=== PATIENT | female | born 1965 | race Caucasian/White ===

== ENCOUNTER 2025-06-22 18:12 | Observation (INO) | payer MEDICARE, SELFPAY ==
[2025-06-22] VITALS (7 sets, daily range): BP systolic 143–167; BP diastolic 66–84; PULSE 73–86; RESP 14–23; TEMP 35.8–36.6; O2SAT 99–100; BMI 25.2; BMI 25.9
--- NOTE | 2025-06-22 18:32 | EKG12_ITS ---
Test Reason : CHEST PAIN Blood Pressure : */* mmHG Vent. Rate : 76 BPM Atrial Rate : 76 BPM P-R Int : 152 ms QRS Dur : 98 ms QT Int : 362 ms P-R-T Axes : 55 52 57 degrees QTcB Int : 407 ms Normal sinus rhythm Nonspecific ST abnormality Abnormal ECG Confirmed by Vikas Arredondo ([id number]), editor & co founder NICO ROBERTSON ([id number]) on 06/25/2025 1:07:18 PM Referred By: SUSANA Confirmed By: Vikas Arredondo
--- NOTE | 2025-06-22 18:34 | EDS_ITS ---
HPI History of Present Illness Chief Complaint: Chest Pain Narrative Narrative: Chief complaint and HPI: 59-year-old female with past medical history of anxiety, depression, DM on Ozempic presents for evaluation of chest pain. Patient states over the past 3 to 4 days she has been under the weather with a URI. States she has had a lot of congestion. Patient states about 2 hours ago she developed sharp chest pain. Pain has improved however still present. She went to an urgent care center to the emergency department. Denies any fever, chills, shortness of breath, abdominal pain, nausea, vomiting. Review of systems: See HPI Medications: As listed on the chart Allergies: As listed on the chart PFSH: Per chart Vital signs: As listed on the chart. Reviewed. Physical exam: Gen: A&O x3, NAD Head: Normocephalic, atraumatic Eyes: No sclera icterus, conjunctiva clear ENT: Moist mucous membranes, nasal congestion+ Neck: Trachea midline CV: RRR, no murmurs, no peripheral edema Resp: Lungs CTA BL, no w/r/c GI: Abd soft, non-distended, non-tender, no r/r/g Musc: Moves all extremities Skin: Warm, dry Psych: Cooperative, appropriate mood and affect [facility] Medical History (Updated 06/22/25 @ 21:[address] Eloise Fernández MD) Former tobacco use Anxiety and depression Diabetes Home Medications ?Medication ?Instructions ?Recorded ?Last Taken ?Type bupropion HCl 150 mg 24 hr tablet, 150 mg PO DAILY 06/22/25 History extended release pioglitazone 15 mg tablet 15 mg PO DAILY 06/22/25 Unkn own History venlafaxine 75 mg capsule,extended 75 mg PO DAILY 05/2506/22/25 History release 24 hr Allergy/AdvReac Type Severity Reaction Status Date / Time No Known Allergies Allergy Verified 06/22/25 18:13 Surgical History (Updated 06/22/25 @ 19:07 by Milka Farris) Hx of bladder repair surgery History of hysterectomy History of cholecystectomy Social History Smoking Status: Former smoker EXAM Physical Exam Const Vital Signs: 06/22/25 18:13 06/22/25 19:03 06/22/25 19:12 Temperature 96.5 F L Temperature Source Oral Pulse Rate 80 80 Respiratory Rate 18 18 Respiratory Effort Normal Blood Pressure 167/75 H 143/84 H Blood Pressure Mean 105 103 Pulse Ox 99 99 Oxygen Delivery Method Room Air Room Air 06/22/25 20:00 06/22/25 21:00 06/22/25 22:00 Temperature Temperature Source Pulse Rate 79 86 81 Respiratory Rate 14 21 H 23 H Respiratory Effort Blood Pressure 145/74 H 154/71 H 152/82 H Blood Pressure Mean 97 98 105 Pulse Ox 99 99 99 Oxygen Delivery Method Room Air Room Air Room Air MDM MDM MDM Narrative Medical decision making narrative: 59-year-old female with past medical history of anxiety, depression, DM on Ozempic presents for evaluation of chest pain. Patient states over the past 3 to 4 days she has been under the weather with a URI. States she has had a lot of congestion. Patient states about 2 hours ago she developed sharp chest pain. Pain has improved however still present. She went to an urgent care center to the emergency department. On presentation, patient no acute distress. Aspirin ordered. Chest pain workup ordered. Differential diagnosis includes but is not limited to pleurisy, pneumonia, PE, ACS. CBC without leukocytosis or anemia. Patient has thrombocytopenia of 131. I do not have previous labs to compare to. D-dimer is 0.51 however this is negative per age-adjusted. BMP unremarkable. Troponin 29. Troponin 60. On reevaluation, patient states her chest pain originally resolved but is now reoccurring. Given that delta is 31. Patient will warrant admission for ACS workup. Will get repeat EKG. She was updated of all the results and confirmed understanding of the plan. I spoke with the hospitalist service, Dr. Fernández who accepted admission. EKG: Interpreted by me/EM physician: EKG shows normal sinus rhythm with nonspecific ST changes. Heart rate 76. No ST elevation Diagnostic: Interpreted by me/EM physician: Chest x-ray not pneumonia, effusion, cardiomegaly, pneumothorax. Radiology in agreement. Impression: 1. Chest pain, ACS rule out 2. Elevated troponin 3. Thrombocytopenia Lab Data Labs: Laboratory Results - last 24 hr 06/22/25 06/22/25 18:35 20:35 WBC 7.7 RBC 4.45 Hgb 12.7 Hct 38.2 MCV 85.8 MCH 28.5 MCHC 33.2 RDW Std Deviation 40.4 RDW Coeff of Qasim 12.9 Plt Count 131 L MPV 10.6 Immature Gran % (Auto) 0.300 Neut % (Auto) 76.7 H Lymph % (Auto) 13.7 L [place] % (Auto) 6.5 Eos % (Auto) 2.3 Baso % (Auto) 0.5 Absolute Neuts (auto) 5.9 Absolute Lymphs (auto) 1.05 Nucleated RBC % 0 D-Dimer Quant (PE/DVT) 0.51 H* Sodium 139 Potassium 4.2 Chloride 102 Carbon Dioxide 29.5 Anion Gap 7 BUN 12 Creatinine 0.81 Estim Creat Clear Calc 71.55 Est GFR (MDRD) Non-Af 83 BUN/Creatinine Ratio 14.9 Glucose 98 Calcium 9.1 Troponin T High Sens 29 H Troponin T Hi Sens 2 Hr 60 H* Radiography Diagnostic Testing: Clinical Impression(s) from Imaging Studies Chest X-Ray 06/22/25 18:55 IMPRESSION: No acute cardiopulmonary disease. Reading Location: [id number] Discharge Plan Triage Chief Complaint: Chest Pain ED Provider: Og Beard Dx/Rx/DC Orders Prescriptions: No Action pioglitazone 15 mg tablet 15 mg PO DAILY venlafaxine 75 mg capsule,extended release 24hr 75 mg PO DAILY bupropion HCl 150 mg tablet extended release 24 hr 150 mg PO DAILY Primary Care Provider: ABELINO VELEZ Referrals: NOT,DEFINED [Non-Staff, None] Print Language: Pashto
[2025-06-22 18:50] LABS: Hematocrit 38.2 % (37-47); Hemoglobin 12.7 g/dL (12.0-15.0); Immature Granulocytes Count 0.020 X10^3/uL (0.0-0.0); Mean Corp Hgb Conc 33.2 g/dL (32-36); Mean Corpuscular Volume 85.8 fL (81-99); Mean Platelet Vol. 10.6 fl (6.2-12.0); NRBC Flagged by Analyzer 0 % (0-5); Platelet Count 131 K/mm3 (150-450); RBC Distribution Width CV 12.9 % (11.6-14.6); RBC Distribution Width SD 40.4 fl (35.1-43.9); Red Blood Count 4.45 M/mm3 (4.2-5.4); White Blood Count 7.7 K/mm3 (4.4-11.0)
--- NOTE | 2025-06-22 18:55 | RAD_ITS ---
PROCEDURE: CHEST PA AND LATERAL 06/22/2025 REASON FOR EXAM: CHEST PAIN TECHNIQUE: Procedure Code: RADCXR Modality: DX Procedure: CHEST PA AND LATERAL COMPARISON: None. FINDINGS: Lungs/Pleura: Clear. No pneumothorax or pleural effusion. Heart/Mediastinum: Within normal limits. Bones/Soft tissues: Mild degenerative changes of the spine. Cholecystectomy surgical clips. RAD/Chest PA and Lateral IMPRESSION: No acute cardiopulmonary disease. Reading Location: [id number]
[2025-06-22 19:08] LABS: Anion Gap 7 (5-15); BUN 12 mg/dL (4-19); BUN/Creat Ratio 14.9 RATIO (10-20); Calcium,Total 9.1 mg/dL (7.6-11.0); Carbon Dioxide 29.5 mmol/L (21.0-32.0); Chloride 102 mmol/L (98-108); Estimated Creatinine Clearance 71.55 ml/min (50-250); Glucose 98 mg/dL (70-99); Potassium 4.2 mmol/L (3.3-5.1); Troponin T High Sensitivity 29 ng/L (<=14)
[2025-06-22 20:03] LABS: D-Dimer Quantitative (DVT/PE) 0.51 FEU/ug/m (0.27-0.49)
[2025-06-22 21:18] LABS: Troponin T High Sens 2 HR 60 ng/L (<=14)
--- NOTE | 2025-06-22 21:57 | PCM.HP.STD ---
HPI - General General Date of Admission: 06/22/25 Date of Service: 06/22/25 Chief Complaint: Recent URI, chest pain. HPI Narrative The patient is a 59 y/o F w/ PMHx: Diabetes mellitus type II, Former tobacco use, Anxiety and Depression who presents to the [facility] ED on 06/22/25 with history of 3 to 4 days of general fatigue, malaise and URI type symptoms with headache, congestion, rhinorrhea then with onset on day of ED presentation at approximately 3:30 in the afternoon midsternal chest discomfort initially more sharp rated 4-6 out of 10 in severity eventually subsiding into a more dull aching 2-3 out of 10 in severity however this was constant and more pressure-like in nature prompting eventual ED evaluation with no associated dyspnea, diaphoresis, nausea or emesis. In the ED patient notes that she had continued to improve further however she did get up to use the restroom the ED and did have an increase in the discomforts with more sharpin addition to pressure-like sensation but is now improving given her rest. Patient notes the discomfort occurred at rest. Patient notes that everyone in the household has had an upper respiratory infection. Workup in the ED included T96.5, heart rate 80, BP 167/75, respiratory 18, 99% on room air with most recent repeat vitals heart rate 86, BP 154/71, respiratory rate 21, 99% on room air, CBC with WBC 7.7, hemoglobin 12.7, platelet 131 without marked shift, D-dimer 0.51 less normal for age, BUN/Cr 12/0.1, GFR 83, initial troponin 29 with repeat delta 60, chest x-ray with no acute cardiopulmonary findings, EKG with sinus rhythm with nonspecific ST changes with no acute evidence of ischemia. In the ED patient ministered full-strength aspirin therapy. [facility] Medical History Former tobacco use Anxiety and depression Diabetes Home Medications ?Medication ?Instructions ?Recorded ?Last Taken ?Type bupropion HCl 150 mg 24 hr tablet, 150 mg PO DAILY 06/22/25 06/22/25 History extended release pioglitazone 15 mg tablet 15 mg PO DAILY 06/22/25 Unknown History venlafaxine 75 mg capsule,extended 75 mg PO DAILY 06/22/25 06/22/25 History release 24 hr Allergy/AdvReac Type Severity Reaction Status Date / Time No Known Allergies Allergy Verified 06/22/25 18:13 Family History (Updated 06/22/25 @ 22:[address] Eloise Fernández MD) Mother CVA (cerebral vascular accident) Hypertension HLD (hyperlipidemia) Dementia Father Dementia Hypertension HLD (hyperlipidemia) CVA (cerebral vascular accident) CAD (coronary artery disease) Myocardial infarction Surgical History Hx of bladder repair surgery History of hysterectomy History of cholecystectomy Social History (Updated 06/22/25 @ 22:[address] Eloise Fernández MD) household members: other details: Lives in [place], visits her daughter and family. Smoking Status: Former smoker how long ago did patient quit smoking: Quit 2006, started age 22, smoked ~ 1/2 intermittently until quit. alcohol intake: never substance use type: does not use ROS ROS Narrative Admission Review of Systems: CONSTITUTIONAL: No weight loss, fever, chills, + weakness or fatigue. HEENT: + Congestion, rhinorrhea with URI, headache. Eyes: No visual loss, blurred vision, double vision or yellow sclerae. Ears, Nose, Throat: No hearing loss, sneezing, sore throat. SKIN: No rash or itching, lesions, wounds. CARDIOVASCULAR: + Chest pain/pressure. No palpitations, edema, orthopnea, syncopal events. RESPIRATORY: No shortness of breath, cough or sputum, wheezing, hemoptysis. GASTROINTESTINAL: No anorexia, nausea, vomiting or diarrhea, abdominal pain, melena, BRBPR. GENITOURINARY: No dysuria, frequency, urgency or retention. NEUROLOGICAL: No headache, dizziness, syncope, paralysis, ataxia, numbness or tingling in the extremities, focal weakness, change in bowel or bladder control, seizure. MUSCULOSKELETAL: + muscle, back pain, joint pain or stiffness. HEMATOLOGIC: No anemia, bleeding or bruising. LYMPHATICS: No enlarged nodes. No history of splenectomy. PSYCHIATRIC: + History of anxiety and depression. ENDOCRINOLOGIC: No reports of sweating, cold or heat intolerance. No polyuria or polydipsia. ALLERGIES: No history of asthma, hives, eczema or rhinitis. Vital Signs Vital Signs Vital Signs: 06/22/25 18:13 06/22/25 19:03 06/22/25 19:12 Temperature 96.5 F L Temperature Source Oral Pulse Rate 80 80 Respiratory Rate 18 18 Respiratory Effort Normal Blood Pressure 167/75 H 143/84 H Blood Pressure Mean 105 103 Pulse Ox 99 99 Oxygen Delivery Method Room Air Room Air 06/22/25 20:00 06/22/25 21:00 Temperature Temperature Source Pulse Rate 79 86 Respiratory Rate 14 21 H Respiratory Effort Blood Pressure 145/74 H 154/71 H Blood Pressure Mean 97 98 Pulse Ox 99 99 Oxygen Delivery Method Room Air Room Air Weight Weight: 154 lb Body Mass Index (BMI) 25.2 Physical Exam Narrative Physical Examination: General: Awake, alert, oriented x 3 and cooperative, laying in ED bed, fatigued, congested sounding. Skin: Normal color, normal turgor, no icterus, no cyanosis except occasional stage ecchymoses, abrasion. HEENT: AT/NC, EOMI, PERRLA, mildly dry MM, audibly congested, no carotid bruits or JVD noted. Lungs: Mildly diminished, greater bases, proper effort, no rales, ronchi or wheezing. Heart: Regular rate and rhythm; no gallop, rub audible, no reproducible anterior discomfort with palpation. Abdomen: Soft, NTTP, ND, mildly hyperactive BS, no appreciated HSM. Extremities: No cyanosis, no clubbing, no significant distal edema. Neurological: Patient awake, alert, oriented as noted, cognitive function intact; pupils equally reactive to light and accommodation, cranial nerves grossly normal, moving all 4 extremities, no focal deficits, strength mildly to moderately globally decreased. Psychiatric: Affect appears fatigued, no acute evidence of depressive or anxiety feelings but does have underlying history. Results Lab / Micro Data 06/22/25 18:35 06/22/25 18:35 Labs: Laboratory Results - last 24 hr 06/22/25 18:35: WBC 7.7, RBC 4.45, Hgb 12.7, Hct 38.2, MCV 85.8, MCH 28.5, MCHC 33.2, RDW Std Deviation 40.4, RDW Coeff of Qasim 12.9, Plt Count 131 L, MPV 10.6, Immature Gran % (Auto) 0.300, Neut % (Auto) 76.7 H, Lymph % (Auto) 13.7 L, [place] % (Auto) 6.5, Eos % (Auto) 2.3, Baso % (Auto) 0.5, Absolute Neuts (auto) 5.9, Absolute Lymphs (auto) 1.05, Nucleated RBC % 0, D-Dimer Quant (PE/DVT) 0.51 H*, Sodium 139, Potassium 4.2, Chloride 102, Carbon Dioxide 29.5, Anion Gap 7, BUN 12, Creatinine 0.81, Estim Creat Clear Calc 71.55, Est GFR (MDRD) Non-Af 83, BUN/Creatinine Ratio 14.9, Glucose 98, Calcium 9.1, Troponin T High Sens 29 H 06/22/25 20:35: Troponin T Hi Sens 2 Hr 60 H* Imaging Radiology Impression Chest X-Ray 06/22/25 18:55 IMPRESSION: No acute cardiopulmonary disease. Reading Location: [id number] Assessment & Plan Assessment/Plan (1) Chest pain: PLAN: Plan The patient is a 59 y/o F w/ PMHx: Diabetes mellitus type II, Former tobacco use, Anxiety and Depression who presents to the [facility] ED on 06/22/25 with history of 3 to 4 days of general fatigue, malaise and URI type symptoms with notable congestion with onset approximately 2 hours prior to ED arrival sharp chest discomfort with no associated dyspnea, diaphoresis, nausea or emesis somewhat improved however prompted eventual urgent care evaluation with referral to the ED for further evaluation. #1. Chest Pain with indeterminate cardiac enzyme of unclear significance: EKG in ED sinus rhythm with nonspecific changes with no acute evidence of ischemia, CXR w/ no acute cardiopulmonary finding, initial trop 29 with repeat delta 60. Will admit to PCU, place on a monitored bed to assure no acute myocardial infarction with serial cardiac enzymes and EKGs. If cardiac enzymes remain similar to 60 on continued serial assessment then would consider cardiac stress testing and maintain on chemoprophylaxis with Lovenox only however if these rise further then we will initiate on a heparin drip and request cardiology evaluation. Magnesium level requested. Given patient history do suspect enzyme will likely arrive further and cardiology involvement and catheterization will be needed but will await these results to further ascertain course. FLP in AM. ASARAUL. #2. Possible URI: Patient with URI type symptoms including notable congestion, will obtain rapid SARS COVID/influenza/RSV to be cautious and if not marked may consider full respiratory panel if necessary, continue to treat conservatively with as needed agents for symptom control. #3. Elevated BP without hypertensive diagnosis: BP elevated above goal in the ED, not on the regimen but clarified to be certain, will continue to monitor and add oral regimen if appropriate, as needed IV hydralazine in the interim. #4. Diabetes mellitus type II: Unclear medications aside from Ozempic which will be held, clarifying to be certain, if any oral chronic medicines will hold, would continue any long-acting insulin therapy, will allow ADA diet until midnight with n.p.o. status following, accu checks w/ ISS. HgBA1c requested. #5. Anxiety and depression: Currently does not appear to be on regimen, clarified to be certain, encourage continued follow-up outpatient as previously arranged. #6. Former tobacco use: Encourage continued tobacco cessation. #7. DVT prophylaxis: Lovenox; however, if enzymes rise further then we will transition to heparin drip. #8. CODE status: Full Code status. Charges/Coding Visit Charges Inpatient E&M: 87361 Init Hosp L3
--- NOTE | 2025-06-22 22:01 | EKG12_ITS ---
Test Reason : REPEAT CP Blood Pressure : */* mmHG Vent. Rate : 77 BPM Atrial Rate : 77 BPM P-R Int : 146 ms QRS Dur : 100 ms QT Int : 376 ms P-R-T Axes : 51 62 40 degrees QTcB Int : 425 ms Normal sinus rhythm Nonspecific ST abnormality Abnormal ECG Confirmed by Vikas Arredondo ([id number]), staff editor NICO ROBERTSON ([id number]) on 06/25/2025 1:07:36 PM Referred By: VIKTOR Confirmed By: Vikas Arredondo
[2025-06-22 22:40] LABS: Magnesium 2.1 mg/dL (1.5-2.2)
--- NOTE | 2025-06-22 23:01 | EKG12_ITS ---
Test Reason : AM EKG Blood Pressure : */* mmHG Vent. Rate : 71 BPM Atrial Rate : 71 BPM P-R Int : 172 ms QRS Dur : 86 ms QT Int : 410 ms P-R-T Axes : 47 65 36 degrees QTcB Int : 445 ms Normal sinus rhythm Nonspecific ST abnormality Abnormal ECG When compared with ECG of 22-Jun-2025 22:07, MANUAL COMPARISON REQUIRED DATA IS UNCONFIRMED Confirmed by HALEIGH ATWOOD, THERESA ([id number]), development editor DARYA PICKETT ([id number]) on 06/25/2025 6:32:52 AM Referred By: Confirmed By: THERESA RICARDO MD
[2025-06-22 23:13] LABS: Troponin T High Sens 4 HR 123 ng/L (<=14)
--- NOTE | 2025-06-22 23:16 | ECHOD_ITS ---
Reason For Study : NSTEMI Procedure This was a 2D Doppler, Color Flow transthoracic echocardiogram. Myocardial strain analysis was performed in this exam to aid in the assessment of cardiac function. Exam performed portable in patient room. Left Ventricle Normal LV size. The left ventricular ejection fraction is 55 %. Mild segmental systolic dysfunction (see wall motion). Basal inferoseptal: Hypokinetic. Infero-Basal: Severely Hypokinetic. Basal anteroseptal: Hypokinetic. There are regional wall motion abnormalities as specified. Right Ventricle Normal RV size. Normal systolic function. Atria Normal left atrium. Normal right atrium. Mitral Valve Normal mitral valve. Mild (1+) eccentric mitral valve insufficiency. Tricuspid Valve Normal tricuspid valve. Mild (1+) tricuspid valve insufficiency. Pulmonary artery systolic pressure is 28 mmHg. Aortic Valve Trisinus/trileaflet aortic valve. Mild focal aortic valve calcification. Pulmonic Valve Normal pulmonic valve. Great Vessels Normal aortic root. The pulmonary artery is normal size. Inferior vena cava collapse with respiration. Pericardium/Pleural No pericardial effusion. MMode/2D Measurements & Calculations LVIDd: 4.5 cm IVSd: 0.87 cm Ao root diam: 2.6 cm LVIDs: 3.7 cm LVPWd: 0.86 cm RVDd: 3.1 cm FS: 18.5 % LAV(MOD-bp): 52.1 ml LVAd ap4: 27.0 cm2 SV(MOD-sp4): 44.3 ml LAV(MOD-bp) Indexed: 29.5 ml/m2 LVLd ap4: 7.6 cm SI(MOD-sp4): 25.0 ml/m2 LAV(MOD-sp2): 61.4 ml EDV(MOD-sp4): 78.6 ml LAV(MOD-sp4): 39.4 ml EDV(sp4-el): 82.0 ml LVAs ap4: 15.8 cm2 LVLs ap4: 6.5 cm ESV(MOD-sp4): 34.2 ml ESV(sp4-el): 32.5 ml EF(MOD-sp4): 56.4 % EF(sp4-el): 60.4 % SV(sp4-el): 49.6 ml LA A4 area: 16.0 cm2 LA dimension(2D): 3.9 cm RA A4 area: 14.4 cm2 TAPSE: 2.1 cm Time Measurements MV dec time: 0.20 sec Doppler Measurements & Calculations MV E max zay: 76.3 cm/sec Lat Peak E' Zay: 11.5 cm/sec Med Peak E' Zay: 8.1 cm/sec MV A max zay: 68.0 cm/sec E/E' lat: 6.7 E/E' med: 9.5 MV E/A: 1.1 LV V1 max: 102.7 cm/sec PA V2 max: 80.6 cm/sec MV dec slope: 372.5 cm/sec2 LV V1 max P.2 mmHg TR max zay: 251.4 cm/sec TR max P.3 mmHg ECHO/Echo Complete Interpretation Summary Normal LV size. The left ventricular ejection fraction is 55 %. Mild segmental systolic dysfunction (see wall motion). Mild (1+) eccentric mitral valve insufficiency. Mild (1+) tricuspid valve insufficiency. The global longitudinal strain is normal. The global longitudinal strain = -18. 8 % (normal). Ordering Physician: Eloise Fernández Performed By: Irina Merritt, HERBERT, RVT
[2025-06-22] MEDS: 0.9% Normal Saline (1000mL) 1,000 ML 100 ML IV (23:30)
[2025-06-22] MEDS: Nitroglycerin (INPATIENT USE) 0.4 MG TAB.SUBL SL (23:32)
[2025-06-22 23:35] LABS: Prothrombin Time (Protime)PT. 14.8 SECONDS (11.7-14.9)
[2025-06-22 23:36] LABS: Partial Thromboplast Time 33.4 Seconds (24.1-36.2)
[2025-06-23] VITALS (14 sets, daily range): BP systolic 123–163; BP diastolic 65–89; PULSE 68–91; RESP 13–20; TEMP 36.8; O2SAT 97–100; BMI 25.8
[2025-06-23] MEDS: Heparin Injection (Vial) 5,000 UNIT/ML VIAL 4000 UNIT IV (00:03)
[2025-06-23] MEDS: HEPARIN/D5w 25,000 UNITS 25,000 UNITS/250 ML IV.SOLN. 8.4 UNITS CONT INF (00:04)
[2025-06-23] MEDS: Nitroglycerin (INPATIENT USE) 0.4 MG TAB.SUBL SL ×2 (00:10→00:18)
[2025-06-23 06:06] LABS: Hematocrit 35.2 % (37-47); Hemoglobin 11.6 g/dL (12.0-15.0); Immature Granulocytes Count 0.020 X10^3/uL (0.0-0.0); Mean Corp Hgb Conc 33.0 g/dL (32-36); Mean Corpuscular Volume 85.9 fL (81-99); Mean Platelet Vol. 10.6 fl (6.2-12.0); NRBC Flagged by Analyzer 0 % (0-5); Platelet Count 119 K/mm3 (150-450); RBC Distribution Width CV 13.0 % (11.6-14.6); RBC Distribution Width SD 40.5 fl (35.1-43.9); Red Blood Count 4.10 M/mm3 (4.2-5.4); White Blood Count 6.9 K/mm3 (4.4-11.0)
[2025-06-23 06:30] LABS: AST(SGOT) 70 U/L (<=31); Alanine Aminotransfer ALT/SGPT 31 U/L (<=34); Albumin, Serum 3.3 g/dL (3.4-4.8); Alkaline Phosphatase 101 U/L (35-104); Anion Gap 7 (5-15); BUN 9 mg/dL (4-19); BUN/Creat Ratio 12.3 RATIO (10-20); Calcium,Total 8.8 mg/dL (7.6-11.0); Carbon Dioxide 27.3 mmol/L (21.0-32.0); Chloride 106 mmol/L (98-108); Cholesterol 201 mg/dL (<=200); Estimated Creatinine Clearance 83.24 ml/min (50-250); Globulin 3.1 g/dL (2.2-4.2); Glucose 109 mg/dL (70-99); Low Density Lipoprotein Calc. 139 mg/dL; Potassium 3.5 mmol/L (3.3-5.1); Triglycerides 68 mg/dL; Troponin T High Sensitivity 374 ng/L (<=14); Very Low Density Lipoprotein 14 mg/dL (5-40); cholesterol:hdl ratio screen 4.03
[2025-06-23 06:35] LABS: Partial Thromboplast Time 181.9 Seconds (24.1-36.2)
--- NOTE | 2025-06-23 07:57 | PCM.CONS.C ---
Assessment & Plan Assessment/Plan (1) Chest pain: PLAN: She presents with chest discomfort which has some atypical features. However her troponin is noted to be markedly elevated with a significant rise and fall with no other explanation. 1 would need to exclude Takotsubo cardiomyopathy or a plaque rupture. Would recommend an echocardiogram to assess wall motion and the ventricular function. My threshold to perform a cardiac catheterization will be rather low at this time. Continue aspirin Low-dose beta-gumaro Statin Will communicate plans to you after reviewing the echocardiogram. Above discussed with the patient and nursing staff. HPI Consult Data Date of Consult: 06/23/25 HPI Narrative HPI Narrative: MANGO MARX, is a 59 F who presents initially to the urgent care after she experienced chest discomfort which she described as sharp with no radiation. She says that she was asked to go to the emergency room and emergency room they did an EKG which demonstrated no changes but cardiac enzymes did demonstrate a significant abnormality. She was decidedly admitted with further recommendations for cardiology consult. She denies any previous such episode there was no evidence of heavy chest discomfort no radiation to the arms or jaws. She has not been under any stress recently. She however has had an upper respiratory tract infection recently. She has not had any fevers though. She does not have any significant family history of coronary disease she is an ex-smoker and is treated for anxiety and depression. At this particular time she appears to be pain-free. [ ] [facility] Medical History Former tobacco use Anxiety and depression Diabetes Home Medications ?Medication ?Instructions ?Recorded ?Last Taken ?Type bupropion HCl 150 mg 24 hr tablet, 150 mg PO DAILY 06/22/25 06/22/25 History extended release pioglitazone 15 mg tablet 15 mg PO DAILY 06/22/25 Unknown History venlafaxine 75 mg capsule,extended 75 mg PO DAILY 06/22/25 06/22/25 History release 24 hr Allergy/AdvReac Type Severity Reaction Status Date / Time No Known Allergies Allergy Verified 06/22/25 18:13 Family History Mother CVA (cerebral vascular accident) Hypertension HLD (hyperlipidemia) Dementia Father Dementia Hypertension HLD (hyperlipidemia) CVA (cerebral vascular accident) CAD (coronary artery disease) Myocardial infarction Surgical History Hx of bladder repair surgery History of hysterectomy History of cholecystectomy Social History household members: other details: Lives in [place], visits her daughter and family. Smoking Status: Former smoker how long ago did patient quit smoking: Quit 2006, started age 22, smoked ~ 1/2 intermittently until quit. alcohol intake: never substance use type: does not use ROS Constitutional Constitutional: Denies fever(s) or weight loss Eyes Eyes: Reports systems reviewed and no addt'l complaints, except as documented ENT HEENT: Reports systems reviewed and no addt'l complaints, except as documented Cardiovascular Cardiovascular: Reports chest pain at rest; Denies chest pain with activity, dyspnea at rest, dyspnea on exertion, edema, palpitations or paroxysmal nocturnal dyspnea Respiratory/Chest Respiratory/Chest: Denies dyspnea on exertion, productive cough, shortness of breath at rest or shortness of breath with exertion Gastrointestinal Gastrointestinal: Denies change in bowel habits, nausea, vomiting or weight changes Genitourinary Genitourinary: Denies difficulty urinating Musculoskeletal Musculoskeletal: Denies joint stiffness or muscle weakness Integumentary Integumentary: Denies lesions Neurologic Neurologic: Denies dizziness or syncope Psychiatric Psychiatric: Denies anxiety Endocrine Endocrinology: Denies excessive sweating or fatigue Hematologic/Lymphatic Hematologic/Lymphatic: Denies anemia Allergic/Immunologic Allergic/Immunologic: Denies seasonal rhinorrhea Physical Exam Const alert and oriented x3 Orientation / Consciousness: awake HEENT normocephalic Eyes PERRL Neck full ROM Carotids: normal carotid upstroke Chest inspection of chest normal Cardio regular rate and regular rhythm Extremity normal to inspection Objective Data Vital Signs: Vital Signs Temp Pulse Resp BP Pulse Ox O2 Del Method 98.3 F 75 16 127/70 H 98 Room Air 06/23/25 04:40 06/23/25 04:40 06/23/25 04:40 06/23/25 04:40 06/23/25 04:40 06/23/25 04:40 Oxygen Delivery Method Room Air Weight: 155 lb 3.287 oz Body Mass Index (BMI) 25.8 Intake & Output: Intake and Output for Last 24 Hours 06/21/25 06/22/25 06/23/25 23:59 23:59 23:59 Intake Total 255.3 / 255.3 Balance 255.3 / 255.3 Lab / Micro Data 06/23/25 05:55 06/23/25 05:55 Labs: Laboratory Results - last 24 hr 06/22/25 18:35: WBC 7.7, RBC 4.45, Hgb 12.7, Hct 38.2, MCV 85.8, MCH 28.5, MCHC 33.2, RDW Std Deviation 40.4, RDW Coeff of Qasim 12.9, Plt Count 131 L, MPV 10.6, Immature Gran % (Auto) 0.300, Neut % (Auto) 76.7 H, Lymph % (Auto) 13.7 L, [place] % (Auto) 6.5, Eos % (Auto) 2.3, Baso % (Auto) 0.5, Absolute Neuts (auto) 5.9, Absolute Lymphs (auto) 1.05, Nucleated RBC % 0, PT 14.8, INR 1.1, APTT 33.4, D-Dimer Quant (PE/DVT) 0.51 H*, Sodium 139, Potassium 4.2, Chloride 102, Carbon Dioxide 29.5, Anion Gap 7, BUN 12, Creatinine 0.81, Estim Creat Clear Calc 71.55, Est GFR (MDRD) Non-Af 83, BUN/Creatinine Ratio 14.9, Glucose 98, Calcium 9.1, Troponin T High Sens 29 H 06/22/25 20:35: Magnesium 2.1, Troponin T Hi Sens 2 Hr 60 H* 06/22/25 22:30: Troponin T Hi Sens 4Hr 123 H* 06/22/25 23:09: POC Glucose 96 06/23/25 05:55: WBC 6.9, RBC 4.10 L, Hgb 11.6 L, Hct 35.2 L, MCV 85.9, MCH 28.3, MCHC 33.0, RDW Std Deviation 40.5, RDW Coeff of Qasim 13.0, Plt Count 119 L, MPV 10.6, Immature Gran % (Auto) 0.300, Neut % (Auto) 51.1, Lymph % (Auto) 34.3, [place] % (Auto) 8.2, Eos % (Auto) 5.7 H, Baso % (Auto) 0.4, Absolute Neuts (auto) 3.5, Absolute Lymphs (auto) 2.35, Nucleated RBC % 0, APTT 181.9 H*, Sodium 140, Potassium 3.5, Chloride 106, Carbon Dioxide 27.3, Anion Gap 7, BUN 9, Creatinine 0.70, Estim Creat Clear Calc 83.24, Est GFR (MDRD) Non-Af 98, BUN/Creatinine Ratio 12.3, Glucose 109 H, Hemoglobin A1c 5.4, Calcium 8.8, Total Bilirubin 0.59, AST 70 H, ALT 31, Alkaline Phosphatase 101, Troponin T High Sens 374 H* D, Total Protein 6.3, Albumin 3.3 L, Globulin 3.1, Albumin/Globulin Ratio 1.1, Triglycerides 68, Cholesterol 201, LDL Cholesterol, Calc 139, VLDL Cholesterol 14, HDL Cholesterol 50, Cholesterol/HDL Ratio 4.03 06/23/25 06:41: POC Glucose 92 Micro: Microbiology 06/22/25 22:16 Mucosa - Nose SARS-CoV-2, Influenza & RSV (PCR) - Final Rhythm Strip Rhythm Strip: Sinus Rhythm Cardiology Labs/Tests 06/22/25 18:35: WBC 7.7, RBC 4.45, Hgb 12.7, Hct 38.2, MCV 85.8, MCH 28.5, MCHC 33.2, Plt Count 131 L, MPV 10.6, Immature Gran % (Auto) 0.300, Neut % (Auto) 76.7 H, Lymph % (Auto) 13.7 L, [place] % (Auto) 6.5, Eos % (Auto) 2.3, Baso % (Auto) 0.5, Absolute Neuts (auto) 5.9, Nucleated RBC % 0, PT 14.8, INR 1.1, APTT 33.4, D-Dimer Quant (PE/DVT) 0.51 H*, Sodium 139, Potassium 4.2, Chloride 102, Carbon Dioxide 29.5, Anion Gap 7, BUN 12, Creatinine 0.81, Est GFR (MDRD) Non-Af 83, BUN/Creatinine Ratio 14.9, Glucose 98, Calcium 9.1 06/22/25 20:35: Magnesium 2.1 06/23/25 05:55: WBC 6.9, RBC 4.10 L, Hgb 11.6 L, Hct 35.2 L, MCV 85.9, MCH 28.3, MCHC 33.0, Plt Count 119 L, MPV 10.6, Immature Gran % (Auto) 0.300, Neut % (Auto) 51.1, Lymph % (Auto) 34.3, [place] % (Auto) 8.2, Eos % (Auto) 5.7 H, Baso % (Auto) 0.4, Absolute Neuts (auto) 3.5, Nucleated RBC % 0, APTT 181.9 H*, Sodium 140, Potassium 3.5, Chloride 106, Carbon Dioxide 27.3, Anion Gap 7, BUN 9, Creatinine 0.70, Est GFR (MDRD) Non-Af 98, BUN/Creatinine Ratio 12.3, Glucose 109 H, Hemoglobin A1c 5.4, Calcium 8.8, Total Bilirubin 0.59, Triglycerides 68, Cholesterol 201, VLDL Cholesterol 14, HDL Cholesterol 50, Cholesterol/HDL Ratio 4.03 Rhythm: EKG: ECHO: Stress Test: Cardiac Cath: PCI: CT Surgery: Holter monitor: EPS: PPM: CXR: Chest CT Scan: Radiography Diagnostic Testing: Radiology Impression Chest X-Ray 06/22/25 18:55 IMPRESSION: No acute cardiopulmonary disease. Reading Location: [id number] Risk Score for UA/STEMI Assesmment (YES = 1) Risk Stratification Applicable: Yes Age > or = 65: No > or = 3 CAD risk factors (HTN, Hypercholesterolemia, Diabetes, family hx, current smoker): Yes Known CAD (Stenosis > or = 50%): No ASA used in past 7 days: No Severe angina (> or = 2 episodes in 24 hrs): No EKG ST change > or = 0.5mm: No Positive cardiac markers: Yes Score ENEDINA Risk Score of mortality/ recurrent ischemic event over the next 14 days: 2 = 8.3% - Low Risk
[2025-06-23] MEDS: buPROPion (XL) 150 MG TABLET.XL PO (08:23)
[2025-06-23] MEDS: Aspirin E.C. 81 MG Tablet PO (08:24)
[2025-06-23] MEDS: 0.9% Normal Saline (1000mL) 1,000 ML 15 ML IV (10:17)
--- NOTE | 2025-06-23 11:39 | PCI.CARDCATH ---
PCI Cardiac Cath Report PCI Report: Procedures #1 left catheterization #2 coronary arteriography #3 ventriculography Indication?non-STEMI with underlying diabetes mellitus, dyslipidemia, anxiety and depression with significant delta change in her high-sensitivity troponin up to 360 Conscious sedation?under my supervision, a licensed practitioner, 1 mg of Versed, 50 mg of fentanyl were administered Fluoroscopy time 4.1 minutes Radiation dose 11.5 Gy Technique of the procedure?using right radial artery access, 6 Pashto sheath, JL 3.5, JR4, guidewire exchanges, the procedure was performed. The JL 4 was selective engage the left main coronary artery and the JR4 was selective engage the right coronary artery. Multiple orthogonal views were obtained. The ventriculogram?was performed in the GEE projection revealing normal-sized ventricle with normal systolic function ejection fraction around 60%. 5 Pashto pigtail catheter was advanced into the LV cavity to record pressures and pullback Hemodynamics?left current SL pressure measured at 4 mmHg, no pressure gradient pressure across aortic valve Coronary anatomy Left main trunk?large caliber vessel with a distal lesion just immediately following the origin of a small bifurcating left circumflex system Left anterior descending artery?large caliber vessel with a large proximal diagonal branch that is almost LAD equivalent. The ostial LAD has a 90% stenosis, the proximal LAD prior to the bifurcation has an 80% hazy stenosis. The lesion itself involves part of the distal left main Left circumflex?moderate caliber vessel with bifurcation into 2 small obtuse marginal branches and free of significant disease Right coronary artery?very large dominant vessel with large PDA and PLV with only minor luminal irregularities Conclusion #1 normal left ventricular size size and function #2 normal intracardiac pressures #3 distal left main ostial LAD bifurcation 80 to 90% hazy stenosis that involves the origin of a very large proximal diagonal branch and the left circumflex ostium is relatively small in caliber with no significant RCA disease Discussion Based on the diabetic status, the location of the lesion involving approximately the large diagonal bifurcation, complete revascularization by surgical technique would be a class Ia indication based on ACC AHA criteria however the option of PCI was discussed with the patient as an alternative noninferior strategy but on the long-term care is more potential revascularization Will transfer the patient for heart team approach discussion Meanwhile aggressive medical therapy including hypotensive statins, dual antiplatelet therapy will be initiated Continue anticoagulation with heparin after sheath removal
[2025-06-23] MEDS: 0.9% Normal Saline (1000mL) 1,000 ML 100 ML IV (12:05)
--- NOTE | 2025-06-23 12:28 | PN.HOSP_ITS ---
Subjective Subjective Doing well, had a heart cath with an ostial LAD 90% stenosis as well as a proximal LAD prior to the bifurcation of an 80% stenosis which involves part of the distal left main Objective Data Objective Data Vital Signs: Vital Signs Temp Pulse Resp BP Pulse Ox O2 Del Method 98.2 F 73 16 163/79 H 100 Room Air 06/23/25 08:22 06/23/25 10:15 06/23/25 10:15 06/23/25 10:15 06/23/25 10:15 06/23/25 10:15 Oxygen Delivery Method Room Air Weight: 155 lb 3.287 oz Body Mass Index (BMI) 25.8 Intake & Output: Intake and Output for Last 24 Hours 06/22/25 06/23/25 06/24/25 03:59 03:59 02:59 Intake Total 200 / 200 1094.52 / 1094.52 Balance 200 / 200 1094.52 / 1094.52 Lab / Micro Data 06/23/25 05:55 06/23/25 05:55 Labs: Laboratory Results - last 24 hr 06/22/25 18:35: WBC 7.7, RBC 4.45, Hgb 12.7, Hct 38.2, MCV 85.8, MCH 28.5, MCHC 33.2, RDW Std Deviation 40.4, RDW Coeff of Qasim 12.9, Plt Count 131 L, MPV 10.6, Immature Gran % (Auto) 0.300, Neut % (Auto) 76.7 H, Lymph % (Auto) 13.7 L, [place] % (Auto) 6.5, Eos % (Auto) 2.3, Baso % (Auto) 0.5, Absolute Neuts (auto) 5.9, Absolute Lymphs (auto) 1.05, Nucleated RBC % 0, PT 14.8, INR 1.1, APTT 33.4, D- Dimer Quant (PE/DVT) 0.51 H*, Sodium 139, Potassium 4.2, Chloride 102, Carbon Dioxide 29.5, Anion Gap 7, BUN 12, Creatinine 0.81, Estim Creat Clear Calc 71.55, Est GFR (MDRD) Non-Af 83, BUN/Creatinine Ratio 14.9, Glucose 98, Calcium 9.1, Troponin T High Sens 29 H 06/22/25 20:35: Magnesium 2.1, Troponin T Hi Sens 2 Hr 60 H* 06/22/25 22:30: Troponin T Hi Sens 4Hr 123 H* 06/22/25 23:09: POC Glucose 96 06/23/25 05:55: WBC 6.9, RBC 4.10 L, Hgb 11.6 L, Hct 35.2 L, MCV 85.9, MCH 28.3, MCHC 33.0, RDW Std Deviation 40.5, RDW Coeff of Qasim 13.0, Plt Count 119 L, MPV 10.6, Immature Gran % (Auto) 0.300, Neut % (Auto) 51.1, Lymph % (Auto) 34.3, [place] % (Auto) 8.2, Eos % (Auto) 5.7 H, Baso % (Auto) 0.4, Absolute Neuts (auto) 3.5, Absolute Lymphs (auto) 2.35, Nucleated RBC % 0, APTT 181.9 H*, Sodium 140, Potassium 3.5, Chloride 106, Carbon Dioxide 27.3, Anion Gap 7, BUN 9, Creatinine 0.70, Estim Creat Clear Calc 83.24, Est GFR (MDRD) Non-Af 98, BUN/Creatinine Ratio 12.3, Glucose 109 H, Hemoglobin A1c 5.4, Calcium 8.8, Total Bilirubin 0.59, AST 70 H, ALT 31, Alkaline Phosphatase 101, Troponin T High Sens 374 H* D, Total Protein 6.3, Albumin 3.3 L, Globulin 3.1, Albumin/Globulin Ratio 1.1, Triglycerides 68, Cholesterol 201, LDL Cholesterol, Calc 139, VLDL Cholesterol 14, HDL Cholesterol 50, Cholesterol/HDL Ratio 4.03 06/23/25 06:41: POC Glucose 92 06/23/25 10:15: POC Glucose 88 Micro: Microbiology 06/22/25 22:16 Mucosa - Nose SARS-CoV-2, Influenza & RSV (PCR) - Final Radiography Diagnostic Testing: Radiology Impression Chest X-Ray 06/22/25 18:55 IMPRESSION: No acute cardiopulmonary disease. Reading Location: [id number] Echocardiogram 06/22/25 23:16 Interpretation Summary Normal LV size. The left ventricular ejection fraction is 55 %. Mild segmental systolic dysfunction (see wall motion). Mild (1+) eccentric mitral valve insufficiency. Mild (1+) tricuspid valve insufficiency. The global longitudinal strain is normal. The global longitudinal strain = -18.8 % (normal). Ordering Physician: Eloise Fernández Performed By: Irina Merritt, HERBERT, RVT Rhythm Strip Rhythm Strip: Sinus Rhythm Physical Exam Narrative General: Alert, Oriented x3, Cooperative, No apparent distress HEENT: Atraumatic, PERRLA, EOMI, Normocephalic Oral: Moist Mucosa Neck: Supple, No JVD Lungs: Diminished, Normal air movement, No rhonchi, No wheeze, No rales Cardiovascular: Regular rate, Regular Rhythm, Normal S1, Normal S2, No murmurs Abdomen: Soft, Non Tender, Non-Distended, No Hepato-splenomegaly Extremities: No edema, Capillary Refill Less than 3 Seconds Skin: No rashes, No breakdown Musculoskeletal: No Tenderness to Palpation of Joints or Extremities Neurological: No focal neurological deficits, moves all extremities Psych/Mental Status: Normal Affect, Appropriate Assessment & Plan Assessment/Plan (1) Chest pain: PLAN: Plan 1. NSTEMI ? Cardiac enzymes were elevated and cardiology was consulted ? Cardiac cath demonstrated significant lesions in the LAD necessitating transfer to a higher level of care this is being [facility] at [facility] ? Echocardiogram today with an EF of 55% and mild segmental systolic dysfunction with severe hypokinesis in the basal segment, the basal inferior septal area is also hypokinetic as is the basal anterior septal region ? Continue with the heparin drip pending transfer ? Continue with lisinopril, aspirin, Lipitor 2. DM2 ? Hold her platelet is on ? Continue with sliding scale insulin ? Accu-Cheks ? Will monitor make adjustments as necessary 3. Anxiety/depression ? Stable ? Continue with her home medications DVT: Heparin drip Charges/Coding Visit Charges Inpatient E&M: 07438 Subs Hosp L2
--- NOTE | 2025-06-23 14:00 | CASEMGMT ---
BLANCA TAYLOR NOTE: [facility] if transfer is recommended is as follows: [facility], [facility], [facility], [facility], [facility], , [place], [facility], [facility], and [place]. Ed COLLINS RN CM
--- NOTE | 2025-06-23 16:00 | DS.PCM_ITS ---
Providers Date of Admission: 06/22/25 Primary Care Physician: ABELINO VELEZ Consultations 06/22/25 23:14 Consult: Cardiology Routine Consulting Provider: Jack Shelton Reason for Consult: NSTEMI EMERGENT Consult: No MD Notified: Yes Date Notified: 06/22/25 Time Notified: 23:15 Method of Notification: Text Reason For Visit: CHEST PAIN Diagnosis Discharge Diagnosis (1) Chest pain: Status: Acute Code(s): R07.9 - Chest pain, unspecified Medications at Discharge Home Medications bupropion HCl 150 mg 24 hr tablet, extended release 150 mg PO DAILY 06/22/25 pioglitazone 15 mg tablet 15 mg PO DAILY 06/22/25 venlafaxine 75 mg capsule,extended release 24 hr 75 mg PO DAILY 06/22/25 Hospital Course Operations None Procedures 2-D Echocardiogram and Cardiac catheterization Summary of Care Provided Minutes Spent on Discharge: 37 Hospital Course: Per HPI: The patient is a 59 y/o F w/ PMHx: Diabetes mellitus type II, Former tobacco use, Anxiety and Depression who presents to the [facility] ED on 06/22/25 with history of 3 to 4 days of general fatigue, malaise and URI type symptoms with headache, congestion, rhinorrhea then with onset on day of ED presentation at approximately 3:30 in the afternoon midsternal chest discomfort initially more sharp rated 4-6 out of 10 in severity eventually subsiding into a more dull aching 2-3 out of 10 in severity however this was constant and more pressure- like in nature prompting eventual ED evaluation with no associated dyspnea, diaphoresis, nausea or emesis. In the ED patient notes that she had continued to improve further however she did get up to use the restroom the ED and did have an increase in the discomforts with more sharpin addition to pressure-like sensation but is now improving given her rest. Patient notes the discomfort occurred at rest. Patient notes that everyone in the household has had an upper respiratory infection. Workup in the ED included T96.5, heart rate 80, BP 167/75, respiratory 18, 99% on room air with most recent repeat vitals heart rate 86, BP 154/71, respiratory rate 21, 99% on room air, CBC with WBC 7.7, hemoglobin 12.7, platelet 131 without marked shift, D-dimer 0.51 less normal for age, BUN/Cr 12/0.1, GFR 83, initial troponin 29 with repeat delta 60, chest x- ray with no acute cardiopulmonary findings, EKG with sinus rhythm with nonspecific ST changes with no acute evidence of ischemia. In the ED patient ministered full-strength aspirin therapy. Hospital Course: 1. Non-STEMI?59-year-old female presents to the hospital with chest pain that started on the day of admission. She has been having some generalized fatigue and malaise and concern for upper respiratory infection which was negative on a viral panel. She did have rising troponin so she had placed on a heparin drip and cardiology was consulted. An echocardiogram today demonstrated an EF of 55% with wall motion abnormalities and the inferior basal region. Cardiac catheterization demonstrated a 90% stenosis in ostial LAD as well as a proximal LAD stenosis of 80% prior to bifurcation that involves part of the distal left main. Given the concern for these findings cardiology organize transfer [facility] to be evaluated by cardiothoracic surgery. I discussed the plan for transfer and she expressed understanding of the risks and benefits of going to a higher level of care, she is a Mandaeism and has indicated refusal for any blood products. Will continue with the heparin drip pending transportation, she is also on aspirin 81 mg, Lipitor 80 mg, and lisinopril 2.5 mg daily, these are all new medications started on this admission. She does have a history of anxiety and depression as well as diabetes these are chronic medical condition which complicates her care. Weight / BMI Weight Weight: 155 lb 3.287 oz Body Mass Index (BMI) 25.8 ABG / Lab / Microbiology Data 06/23/25 05:55 06/23/25 05:55 Laboratory: Laboratory Results - last 24 hr 06/22/25 18:35: WBC 7.7, RBC 4.45, Hgb 12.7, Hct 38.2, MCV 85.8, MCH 28.5, MCHC 33.2, RDW Std Deviation 40.4, RDW Coeff of Qasim 12.9, Plt Count 131 L, MPV 10.6, Immature Gran % (Auto) 0.300, Neut % (Auto) 76.7 H, Lymph % (Auto) 13.7 L, [place] % (Auto) 6.5, Eos % (Auto) 2.3, Baso % (Auto) 0.5, Absolute Neuts (auto) 5.9, Absolute Lymphs (auto) 1.05, Nucleated RBC % 0, PT 14.8, INR 1.1, APTT 33.4, D- Dimer Quant (PE/DVT) 0.51 H*, Sodium 139, Potassium 4.2, Chloride 102, Carbon Dioxide 29.5, Anion Gap 7, BUN 12, Creatinine 0.81, Estim Creat Clear Calc 71.55, Est GFR (MDRD) Non-Af 83, BUN/Creatinine Ratio 14.9, Glucose 98, Calcium 9.1, Troponin T High Sens 29 H 06/22/25 20:35: Magnesium 2.1, Troponin T Hi Sens 2 Hr 60 H* 06/22/25 22:30: Troponin T Hi Sens 4Hr 123 H* 06/22/25 23:09: POC Glucose 96 06/23/25 05:55: WBC 6.9, RBC 4.10 L, Hgb 11.6 L, Hct 35.2 L, MCV 85.9, MCH 28.3, MCHC 33.0, RDW Std Deviation 40.5, RDW Coeff of Qasim 13.0, Plt Count 119 L, MPV 10.6, Immature Gran % (Auto) 0.300, Neut % (Auto) 51.1, Lymph % (Auto) 34.3, [place] % (Auto) 8.2, Eos % (Auto) 5.7 H, Baso % (Auto) 0.4, Absolute Neuts (auto) 3.5, Absolute Lymphs (auto) 2.35, Nucleated RBC % 0, APTT 181.9 H*, Sodium 140, Potassium 3.5, Chloride 106, Carbon Dioxide 27.3, Anion Gap 7, BUN 9, Creatinine 0.70, Estim Creat Clear Calc 83.24, Est GFR (MDRD) Non-Af 98, BUN/Creatinine Ratio 12.3, Glucose 109 H, Hemoglobin A1c 5.4, Calcium 8.8, Total Bilirubin 0.59, AST 70 H, ALT 31, Alkaline Phosphatase 101, Troponin T High Sens 374 H* D, Total Protein 6.3, Albumin 3.3 L, Globulin 3.1, Albumin/Globulin Ratio 1.1, Triglycerides 68, Cholesterol 201, LDL Cholesterol, Calc 139, VLDL Cholesterol 14, HDL Cholesterol 50, Cholesterol/HDL Ratio 4.03 06/23/25 06:41: POC Glucose 92 06/23/25 10:15: POC Glucose 88 Microbiology: Microbiology 06/22/25 22:16 Mucosa - Nose SARS-CoV-2, Influenza & RSV (PCR) - Final Radiography Diagnostic Testing: Radiology Impression Chest X-Ray 06/22/25 18:55 IMPRESSION: No acute cardiopulmonary disease. Reading Location: [facility] Echocardiogram 06/22/25 23:16 Interpretation Summary Normal LV size. The left ventricular ejection fraction is 55 %. Mild segmental systolic dysfunction (see wall motion). Mild (1+) eccentric mitral valve insufficiency. Mild (1+) tricuspid valve insufficiency. The global longitudinal strain is normal. The global longitudinal strain = -18.8 % (normal). Ordering Physician: Eloise Fernández Performed By: Irina Merritt, HERBERT, RVT D/C Instructions DC O2, CPAP, BIPAP Needs Home O2 Discharge instructions: No Meaningful Use Info Meaningful Use Meaningful Use Diagnoses (Choose all that apply): None applicable Discharge Plan Admission Admit Date/Time: 06/22/25 21:58 Attending Provider: Gurwinder Zavala Primary Care Provider: ABELINO VELEZ Consulting Providers: Jack Shelton; Eloise Fernández Discharge Orders/Prescriptions Prescriptions: Continued pioglitazone 15 mg tablet 15 mg PO DAILY venlafaxine 75 mg capsule,extended release 24hr 75 mg PO DAILY bupropion HCl 150 mg tablet extended release 24 hr 150 mg PO DAILY Referrals / Follow Up: ABELINO VELEZ [Other] NOT,DEFINED [Non-Staff, None] Disposition Discharge Orders: Discharge Patient (Routine); Ordered 06/23/25 Ordered By: Dr. Gurwinder Zavala Charges/Coding Visit Charges Inpatient E&M: 39385 Disch Hosp >30min
[2025-06-23 16:18] LABS: Prothrombin Time (Protime)PT. 16.0 SECONDS (11.7-14.9)
[2025-06-23 16:20] LABS: Partial Thromboplast Time 51.2 Seconds (24.1-36.2)
== END 2025-06-23 17:16 | disposition short-term general hospital (02) ==
LOC: ED 22:03 → PCU 22:19
PROVIDERS: Admitting Provider Family Medicine; Emergency Provider Surgery; Visit Provider Family Medicine
DX: I21.4 Non-ST elevation (NSTEMI) myocardial infarction (principal); E11.9 Type 2 diabetes mellitus without complications; I25.10 Atherosclerotic heart disease of native coronary artery without angina pectoris; R09.81 Nasal congestion; D69.6 Thrombocytopenia, unspecified; R51.9 Headache, unspecified; R03.0 Elevated blood-pressure reading, without diagnosis of hypertension; J34.89 Other specified disorders of nose and nasal sinuses; R53.81 Other malaise; R53.83 Other fatigue; E78.5 Hyperlipidemia, unspecified; F32.A Depression, unspecified; F41.9 Anxiety disorder, unspecified; Z79.85 Long-term (current) use of injectable non-insulin antidiabetic drugs; Z90.49 Acquired absence of other specified parts of digestive tract; Z79.899 Other long term (current) drug therapy; Z87.891 Personal history of nicotine dependence
CPT/HCPCS: 36415; 71046; 80048; 80053; 80061; 82962; 83036; 83735; 84484; 85025; 85379; 85610; 85730; 87631; 93005; 93306; 93458; 96361; 96365; 96366; 96376; 99152; 99153; 99221; 99285; C1894; Q9967; A4216; C1769; G0378

== ENCOUNTER 2025-08-14 02:46 | Emergency (ER) | payer MEDICARE, SELFPAY ==
[2025-08-14 02:48] VITALS: BP 156/55; PULSE 78; RESP 18; TEMP 36.8; O2SAT 98; BMI 25.7
--- NOTE | 2025-08-14 03:05 | EX.ED.UPPERE ---
HPI History of Present Illness Chief Complaint: Upper Extremity Injury Informant: patient Narrative Narrative: Patient is a 59-year-old female presenting with right shoulder pain following a fall from a 3-step stepladder approximately 45 minutes ago. - Patient reports falling from a 3-step stepladder placed in a bathtub. - During the fall, she attempted to stop herself by grabbing a shelf above the door, but the shelf gave way, causing her to land against the sink rather than the floor. Does not think she had any direct trauma to the shoulder and denies injury elsewhere. - Immediately after the fall, she experienced severe pain in her right shoulder. - Pain is localized to a specific area of the shoulder and is exacerbated by movement. - Patient is right-handed. [facility] Medical History Hyperlipidemia NSTEMI (non-ST elevated myocardial infarction) (06/22/25) Atherosclerotic heart disease of [place] coronary artery without angina pectoris (06/23/25) Former tobacco use Anxiety and depression Diabetes Home Medications ?Medication ?Instructions ?Recorded ?Last Taken ?Type bupropion HCl 150 mg 24 hr tablet, 150 mg PO DAILY 06/22/25 06/22/25 History extended release pioglitazone 15 mg tablet 15 mg PO DAILY 06/22/25 Unknown History venlafaxine 75 mg capsule,extended 75 mg PO DAILY 06/22/25 06/22/25 History release 24 hr aspirin 81 mg tablet,delayed 81 mg PO QDAY #90 tabs 07/05/25 Unknown Rx release (Adult Aspirin Regimen) metoprolol succinate 25 mg 25 mg PO DAILY #90 tabs 07/05/25 Unknown Rx tablet,extended release 24 hr nitroglycerin 0.4 mg sublingual 0.4 mg sublingual Q5-15M PRN chest 07/05/25 Unknown Rx tablet pain #25 tabs pantoprazole 40 mg tablet,delayed 40 mg PO DAILY #90 tabs 07/05/25 Unknown Rx release rosuvastatin 40 mg tablet (Crestor) 40 mg PO DAILY #90 tabs 07/05/25 Unknown Rx ticagrelor 90 mg tablet (Brilinta) 90 mg PO BID #180 tabs 07/05/25 Unknown Rx hydrocodone-acetaminophen 5-325mg 1 tab PO Q6H PRN pain 3 days #12 08/14/25 Unknown Rx 5mg-325mg tabs semaglutide 2 mg/dose (8 mg/3 mL) 2 mg (0.75 mL) subcut QWEEK 4 08/14/25 Unknown Rx subcutaneous pen injector (Ozempic) weeks #3 mL Allergy/AdvReac Type Severity Reaction Status Date / Time No Known Allergies Allergy Verified 08/14/25 02:49 Family History Mother CVA (cerebral vascular accident) Hypertension HLD (hyperlipidemia) Dementia Father Dementia Hypertension HLD (hyperlipidemia) CVA (cerebral vascular accident) CAD (coronary artery disease) Myocardial infarction Surgical History Hx of bladder repair surgery History of hysterectomy History of cholecystectomy Social History household members: other details: Lives in [place], visits her daughter and family. Smoking Status: Former smoker how long ago did patient quit smoking: Quit 2006, started age 22, smoked ~ 1/2 intermittently until quit. alcohol intake: never substance use type: does not use ROS ROS ED Constitutional Constitutional ED: Denies chills or fever(s) Musculoskeletal Musculoskeletal: Reports extremity pain; Denies neck pain Integumentary Denies Abrasions, rash or wounds Neurologic Neurologic: Denies paresthesias or weakness EXAM Physical Exam Const Vital Signs: 08/14/25 02:48 Temperature 98.2 F Temperature Source Oral Pulse Rate 78 Respiratory Rate 18 Blood Pressure 156/55 H Blood Pressure Mean 88 Pulse Ox 98 Oxygen Delivery Method Room Air Positive well nourished and well developed General Appearance ED: well developed and NAD Neck full ROM and supple Back/Spine normal ROM and normal to inspection Extremity Extremity Narrative: Right upper extremity: Very limited range of motion of the shoulder due to pain. She can externally rotate to about neutral but not beyond. She cannot abduct at all. She can start to internally rotate but cannot get her hand behind her back. There is no deformity. Subacromial pain and mild tenderness. No tenderness to the acromion, the clavicle, or the acromioclavicular joint, nor is there any anterior humerus/biceps tenderness. Full range of motion including pronation and supination of the wrist and full range of motion of the elbow without tenderness there. Neuro oriented x3, no focal motor deficits and no sensory deficits noted Sensorium / Orientation: alert Psych mental status grossly normal and thought process normal Skin Skin Narrative: Linear superficial abrasion without significant tissue loss or laceration to repair anterior left mid conde. Good hemostasis. Rashes: no rashes MDM MDM MDM Narrative Medical decision making narrative: Review of the right shoulder x-ray series, 2v based on my interpretation, shows a non-displaced fracture of the proximal humerus. There appear to be two fracture lines involving the surgical neck and the greater tuberosity, but neither is displaced, suggesting a one-part fracture. Treatment will consist of a sling and supportive care with pain medication at this time. She will be referred to orthopedics for follow-up. However, she states that she is visiting from [place] until September 01 and plans to follow up once she returns. She was also referred locally to orthopedics in case she decides to follow up while she is here. She is requesting an unrelated medication refill for Ozempic. She needs about a one-month supply, but her doctor will not refill it without seeing her, he is in [place] and she is here until 09/01/2025. She states she has had no problems taking Ozempic for the last several months. Portions of this note were generated using voice recognition software ([email or web address]). I have reviewed the contents and every effort has been made to ensure accuracy; however, inadvertent errors in grammar, spelling, punctuation, or word choice may occur, that were not noted before signing the document and should not alter the intended clinical meaning. Discharge Plan Triage Chief Complaint: Upper Extremity Injury ED Provider: Brian Figueredo Dx/Rx/DC Orders Clinical Impression: Closed traumatic nondisplaced fracture of proximal end of right humerus, Accidental fall from ladder, Abrasion of anterior left lower leg, Encounter for medication refill Instructions: Understanding a Humerus Fracture, ED Sling Prescriptions: New hydrocodone-acetaminophen 5-325 mg Tablet 1 tab PO Q6H PRN (Reason: pain) 3 Days Qty: 12 0RF Continued aspirin [Adult Aspirin Regimen] 81 mg tablet,delayed release (DR/EC) 81 mg PO QDAY Qty: 90 3RF pantoprazole 40 mg tablet,delayed release (DR/EC) 40 mg PO DAILY Qty: 90 3RF nitroglycerin 0.4 mg tablet, sublingual 0.4 mg sublingual Q5-15M PRN (Reason: chest pain) Qty: 25 3RF Rx Instructions: do not exceed 3 doses per episode metoprolol succinate 25 mg tablet extended release 24 hr 25 mg PO DAILY Qty: 90 3RF rosuvastatin [Crestor] 40 mg tablet 40 mg PO DAILY Qty: 90 3RF ticagrelor [Brilinta] 90 mg tablet 90 mg PO BID Qty: 180 3RF pioglitazone 15 mg tablet 15 mg PO DAILY venlafaxine 75 mg capsule,extended release 24hr 75 mg PO DAILY bupropion HCl 150 mg tablet extended release 24 hr 150 mg PO DAILY Ozempic 2 mg/dose (8 mg/3 mL) pen injector 2 mg subcut QWEEK 28 Days Qty: 3 0RF Primary Care Provider: Care Physician,No Primary Referrals: Jayson Barreto MD [Med Staff - Active Staff, Orthopedics] - As soon as possible Referral Note: or your ortho of choice [facility] Doctor,Out of [Non-Staff, Medical] - As soon as possible Print Language: Maltese Disposition Disposition: Home, Self Care
--- NOTE | 2025-08-14 03:15 | RAD_ITS ---
PROCEDURE: SHOULDER MIN 2 VIEWS 08/14/2025 REASON FOR EXAM: INJURY TECHNIQUE: Procedure Code: RADSH Modality: DX Procedure: SHOULDER MIN 2 VIEWS COMPARISON: None FINDINGS: There is an acute nondisplaced fracture of the humerus greater tuberosity. Tiny bone fragment is seen. Associated soft tissue swelling is noted. AC joint space narrowing is seen. Intact right ribs. No pneumothorax. RAD/Shoulder min 2 Views IMPRESSION: Acute right humerus greater tuberosity fracture. Reading [facility]
[2025-08-14] MEDS: HYDROcodone Bitartrate/Apap 5/325 Tablet PO (03:41)
--- OUTSIDE RECORDS SUMMARY | 2025-08-14 04:00 | XMS RPT_ITS | CCD ---
Author Organization [facility] Care Team Providers Care Medical Radiation Tech Name Role Phone Rian Durbin III Primary Care Provider ZAIRA ROSS Attending Unavailable RAMAKRISHNA BUCK, RIAN NEAL Primary Care Unavail able RIAN DURBIN III Primary Care Unavail able RONNY BHATT Attending Unavailable Unavailable Primary Care Provider UnavailBARBARA Amin Admitting Unavailable NIKITA, JACK Referring Unavailable BI MEJIA Attending Unavailable White, Eloise L Admitting Unavailable White, Eloise L Consulting Unavailable White, Eloise L Attending Unavailable KRAFT, CHRISTY Primary Care Unavailable Nikita, Gilchrist Consulting Unavailable Nikita, Gilchrist Attending Unavailable Gurwinder Zavala Consulting Unavailable White, Eloise L Admitting Unavailable KRAFT, CHRISTY Primary Care Unavailable Nikita, Gilchrist Consulting Unavailable Gurwinder Zavala Attending Unavailable White, Eloise L Consulting Unavailable Gurwinder Zavala Attending Unavailable Medications Current Medications Medication Drug Class(es) Dates Sig (Normalized) Sig (Original) aspirin 81 mg delayed release oral tablet (6 sources) Platelet Aggregation Inhibitor, Nonsteroidal Anti-inflammatory Drug Start: 06-27-2025 End: 06-26-2025 take 1 tablet by mouth once daily aspirin 81 MG EC tablet Take 1 tablet (81 mg) by mouth daily. 30 tablet 11 06/26/2025 12:39 PM EST 06/27/2025 06/26/2025 Discontinued Start: 06-23-2025 End: 06-27-2026 aspirin 81 MG EC tablet Take 1 tablet (81 mg) by mouth daily. Do not start before June 27, 2025. 30 tablet 11 06/27/2025 06/27/2026 Active FREESTYLE KARIE 3 PLUS SENSOR padmini (1 source) Start: 04-01-2025 FREESTYLE KARIE 3 PLUS SENSOR padmini 04/01/2025 Active ketoconazole 20 mg/ml topical cream (1 source) Azole Antifungal Start: 05-18-2007 apply 60 g topically twice daily ketoconazole 2 % TOPICAL Crea bid to cm past involved--continue at least until phone f/u at 2 months even if looks clear sooner 60 gm 1 05/18/2007 Active losartan potassium 25 mg oral tablet (6 sources) Angiotensin 2 Receptor Gumaro Start: 06-27-2025 End: 06-26-2025 take 1 tablet by mouth once daily losartan (Cozaar) 25 MG tablet Take 1 tablet (25 mg) by mouth daily. 30 tablet 11 06/26/2025 12:39 PM EST 06/27/2025 06/26/2025 Discontinued Start: 06-26-2025 End: 06-27-2026 losartan (Cozaar) 25 MG tabl et Take 1 tablet (25 mg) by mouth daily. Do not start before June 27, 2025. 30 tablet 11 06/27/2025 06/27/2026 Active 24 hr metoprolol succinate 25 mg extended release oral tablet (8 sources) beta-Adrenergic Gumaro Start: 06-27-2025 End: 06-26-2025 take 1 tablet by mouth once daily metoprolol succinate XL (Toprol-XL) 25 MG 24 hr tablet Take 1 tablet (25 mg) by mouth daily. Do not crush or chew. 30 tablet 11 06/26/2025 12:39 PM EST 06/27/2025 06/26/2025 Discontinued Start: 06-27-2025 End: 06-26-2025 metoprolol succinate XL (Top rol-XL) 25 MG 24 hr tablet Take 1 tablet (25 mg) by mouth daily. Do not crush or chew. Do not start before June 27, 2025. 30 tablet 11 06/27/2025 06/26/2025 Discontinued (Stop taking at discharge) Start: 06-27-2025 End: 06-27-2026 metoprolol succinate XL (Top rol-XL) 25 MG 24 hr tablet Take 1 tablet (25 mg) by mouth daily. Do not crush or chew. Do not start before June 27, 2025. 30 tablet 11 06/27/2025 06/27/2026 Active Start: 06-24-2025 End: 06-27-2026 take 25 mg by mouth once daily 25 mg, Oral, Daily, Fir st dose on 06/24/25 at 0900, Do not crush or chew. nitroglycerin 0.4 mg sublingual tablet (4 sources) Nitrate Vasodilator Start: 06-23-2025 End: 06-26-2026 nitroglycerin (Nitrostat) 0.[address] 1 tablet (0.4 mg) under the tongue every 5 minutes as needed for chest pain. 90 tablet 12 06/26/2025 12:39 PM EST 06/26/2025 06/26/2026 Active OZEMPIC 2 mg/dose (8 mg/3 mL) pen injector (1 source) Start: 03-09-2025 inject 2 mg by subcutaneous injection every week OZEMPIC 2 mg/dose (8 mg/3 mL) pen injector Inject 2 mg subcutaneously one time a week. 03/09/2025 Active pantoprazole 40 mg delayed release oral tablet (6 sources) Proton Pump Inhibitor Start: 06-27-2025 End: 06-26-2025 pantoprazole (ProtoNix) 40 MG EC tablet Take 1 tablet (40 mg) by mouth every morning (before breakfast). Do not crush, chew, or split. Do not start before June 27, 2025. 30 tablet 11 06/26/2025 12:39 PM EST 06/27/2025 06/26/2025 Discontinued Start: 06-27-2025 End: 06-27-2026 pantoprazole (ProtoNix) 40 M G EC tablet Take 1 tablet (40 mg) by mouth every morning (before breakfast). Do not crush, chew, or split. Do not start before June 27, 2025. 30 tablet 11 06/27/2025 06/27/2026 Active Start: 06-27-2025 End: 06-27-2026 pantoprazole (ProtoNix) 40 M G EC tablet Take 1 tablet (40 mg) by mouth every morning (before breakfast). Do not crush, chew, or split. Do not start before June 27, 2025. 30 tablet 06/27/2025 06/27/2026 Active pioglitazone 15 mg oral tablet (3 sources) Peroxisome Proliferator Receptor alpha Agonist, Peroxisome Proliferator Receptor gamma Agonist, Thiazolidinedione Start: 04-26-2025 take 1 tablet by mouth once daily pioglitazone (ACTOS) 15 mg tablet Take 15 mg by mouth once daily. 04/26/2025 Active predniSONE 10 mg oral tablet (1 source) Start: 04-29-2025 predniSONE (DELTASONE) 10 mg tablet Take 4 tabs daily for 3 days, then 2 tabs daily for 3 days, then 1 tab daily for 3 days with food. 21 tablet 04/29/2025 Active rosuvastatin calcium 40 mg oral tablet (8 sources) HMG-CoA Reductase Inhibitor Start: 06-27-2025 End: 06-26-2025 take 1 tablet by mouth once daily rosuvastatin (Crestor) 40 MG tablet Take 1 tablet (40 mg) by mouth daily. 30 tablet 06/26/2025 12:39 PM EST 06/27/2025 06/26/2025 Discontinued Start: 06-27-2025 End: 06-26-2025 rosuvastatin (Crestor) 40 MG tablet Take 1 tablet (40 mg) by mouth daily. Do not start before June 27, 2025. 30 tablet 06/27/2025 06/26/2025 Discontinued (Stop taking at discharge) Start: 06-27-2025 End: 06-27-2026 rosuvastatin (Crestor) 40 MG tablet Take 1 tablet (40 mg) by mouth daily. Do not start before June 27, 2025. 30 tablet 06/27/2025 06/27/2026 Active Start: 06-27-2025 End: 06-27-2026 rosuvastatin (Crestor) 40 MG tablet Take 1 tablet (40 mg) by mouth daily. Do not start before June 27, 2025. 30 tablet 06/27/2025 06/27/2026 Active Start: 06-23-2025 End: 06-26-2025 take 40 mg by mouth once daily 40 mg, Oral, Daily, Fir st dose on 06/23/25 at 1900 Semaglutide (OZEMPIC, 1 MG/DOSE, SC) (2 sources) Semaglutide (OZE MPIC, 1 MG/DOSE, SC) Inject under the skin. Active ticagrelor 90 mg oral tablet (4 sources) Start: 06-25-2025 End: 06-25-2026 take 1 tablet by mouth twice daily ticagrelor (Brilinta) 90 MG tablet Take 1 tablet (90 mg) by mouth 2 times daily for 727 doses. 60 tablet 11 06/26/2025 12:39 PM EST 06/26/2025 06/25/2026 Active VITAMIN E ACETATE, BULK, MISC (1 source) VITAMIN E ACETAT E, BULK, MISC 800 mg once daily. Active Completed/Discontinued Medications Medication Drug Class(es) Dates Sig (Normalized) Sig (Original) Acetaminophen (2 sources) Start: 06-23-2025 End: 06-26-2025 take 1 tablet by mouth every six hours as needed for pain and fever acetaminophen (Tylenol) tablet 650 mg 24 hr buPROPion hydrochloride 150 mg extended release oral tablet (5 sources) Aminoketone Start: 04-20-2025 End: 06-26-2025 take 150 mg by mouth once daily 150 mg, Oral, Daily, First dose (after last modification) on 06/24/25 at 0900, Do not crush, chew, or split., Indications: Major Depressive Disorder cholecalciferol 9.52 unt/ml / glucose 357 mg/ml oral gel (2 sources) Vitamin D Start: 06-23-2025 End: 06-26-2025 15 g, Oral, As needed, low blood sugar, Starting on 06/23/25 at 2024, If blood glucose less than 50 mg/dL and patient ALERT and NOT NPO, give 2 tubes glucose gel. If blood glucose less than 70 mg/dL and patient ALERT and NOT NPO, give 1 tube glucose gel. Repeat blood glucose in 15 minutes. If blood glucose is less than 70 mg/dL, repeat treatment and recheck blood glucose in 15 minutes x2 and notify provider. glucagon (rdna) 1 mg injection (2 sources) Antihypoglycemic Agent Start: 06-23-2025 End: 06-26-2025 1 mg, IntraMUSCular, PRN, low blood sugar, Blood glucose less than 70 mg/dL and patient NOT ALERT or NPO and does not have IV access., Starting on 06/23/25 at 2024, After administration, attempt intravenous access and start D5W at 100 mL/hr. Repeat blood glucose in 15 minutes x2 and notify provider. 50 ml glucose 50 mg/ml injection (4 sources) Start: 06-23-2025 End: 06-26-2025 100 mL/hr, IntraVENous, PRN, Blood sugar less than 70mg/dL, Starting on 06/23/25 at 2024, Start infusion following administration of dextrose 50% or glucagon. Start: 06-23-2025 End: 06-26-2025 12.5 g, IntraVENous, PRN, lo w blood sugar, Blood glucose less than 70 mg/dL and patient NOT ALERT or NPO., Starting on 06/23/25 at 2024, If patient does not respond within 5 minutes, repeat dose x1. Start D5W at 100 mL/hour until ordering provider can be reached. Repeat blood glucose in 15 minutes. If blood glucose is less than 70 mg/dL, repeat treatment and recheck blood glucose in 15 minutes x2. If using Glucostabilizer, dose as instructed per system. 250 ml heparin sodium, porcine 100 unt/ml injection (4 sources) Unfractionated Heparin, Anti-coagulant Start: 06-23-2025 End: 06-25-2025 5-30 Units/kg/hr 68.4 kg (3.42-20.52 mL/hr, rounded to 3.4-20.5 mL/hr), IntraVENous, Continuous, Starting on 06/23/25 at 1900, LOW Dose Heparin Weight Based Dosing (CAD/STEMI/NSTEMI/AFIB/ECMO) >>>>Initial dose: 9 units/kg/hr 95.9 Hold heparin for 60 min Decrease infusion by 2 units/kg/hr - notify prescriber; Obtain a baseline aPTT before starting Heparin Therapy. Draw aPTT 6 hours after initiation of the infusion and 6 hours following any rate or dose change - repeating every 6 hours until two consecutive therapeutic aPTT values are achieved. Once therapeutic, monitor aPTT daily with morning labs. Contact provider for further directions if: a) The patient has reached maximum dose and has not achieved the goal of therapy or b) If this medication is held outside of ordered parameters Start: 06-23-2025 End: 06-25-2025 2,000 Units, IntraVENous, As needed, heparin dosing algorithm, Starting on 06/23/25 at 1855, Half dose re-bolus based on pharmacy algorithm Insulin Lispro (Humalog) injection 0-12 Units (2 sources) Start: 06-24-2025 End: 06-26-2025 Insulin Lispro (Humalog) injection 0-12 Units ondansetron ODT (Zofran-ODT) disintegrating tablet 4 mg (2 sources) Start: 06-23-2025 End: 06-26-2025 take 1 tablet by mouth every eight hours as needed for nausea and vomiting ondansetron ODT (Zofran-ODT) disintegrating tablet 4 mg polyethylene glycol 3350 00217 mg powder for oral solution (2 sources) Osmotic Laxative Start: 06-23-2025 End: 06-26-2025 take 17 g by mouth every twenty-four hours as needed for constipation 17 g, Oral, Daily PRN, constipation, Starting on 06/23/25 at 1852, 1st line for treatment of constipation - give scheduled if no bowel movement in past 24 hours. 5 ml sodium chloride 9 mg/ml injection (6 sources) Start: 06-23-2025 End: 06-26-2025 take 5-40 mL intravenously every twelve hours 5-40 mL, IntraVENous, Every 12 hours, First dose on 06/23/25 at 1900, For Line Patency: Peripheral IV = 5 mL; Midline or Central Line = 10 mL/lumen. If following IV push medication, administer flush at same rate as the IV push. Flush volume is determined by type of infusion therapy being given. For non-viscous solutions use: Peripheral IV = 5 mL Midline or Central Line = 10 mL/lumen For viscous solutions (i.e. blood components, parenteralnutrition , contrast media, or after obtaining blood sample) use: Peripheral IV = 10 mL Midline or Central Line = 20 mL/lumen Start: 06-23-2025 End: 06-26-2025 take 100 mL intravenously every hour as needed, then take 20 mL intravenously every hour as needed 5-250 mL/hr, IntraVENous, PRN, if patient receiving piggyback infusions and maintenance fluids are not ordered OR KVO fluids to protect IV site / prevent frequent line interruptions / long duration, Starting on 06/23/25 at 1852, For piggyback infusion, administer at same rate as piggyback for a total of 25 mL. Enter 25 mL into dose field and piggyback rate into rate field of order. If piggyback is infusing at a rate less than 100 mL/hr, enter 25 mL into dose field and 100 mL/hr into rate field of order. For KVO fluids, enter rate of 20 mL/hr or less into rate field of order. Start: 06-23-2025 End: 06-26-2025 5-40 mL, IntraVENous, PRN, l ine care, After every IV line use, Starting on 06/23/25 at 1852, For Line Patency: Peripheral IV = 5 mL; Midline or Central Line = 10 mL/lumen. If following IV push medication, administer flush at same rate as the IV push. Flush volume is determined by type of infusion therapy being given. For non-viscous solutions use: Peripheral IV = 5 mL Midline or Central Line = 10 mL/lumen For viscous solutions (i.e. blood components, parenteralnutrition, contrast media, or after obtaining blood sample) use: Peripheral IV = 10 mL Midline or Central Line = 20 mL/lumen 24 hr venlafaxine 37.5 mg extended release oral capsule (5 sources) Serotonin and Norepinephrine Reuptake Inhibitor Start: 06-24-2025 End: 06-26-2025 take 1 capsule by mouth once daily 75 mg, Oral, Daily, First dose (after last modification) on 06/24/25 at 0900, Capsule may be swallowed whole, or may be opened and its contents sprinkled on applesauce if consumed immediately without chewing. Do not crush or chew., Indications: Major Depressive Disorder Start: 04-20-2025 take 1 capsule by mo wyh once daily venlafaxine ER (EFFEXOR XR) 75 mg 24 hr capsule Take 75 mg by mouth once daily. 04/20/2025 Active Problems Problem Classification Problem Date Documented Da te Episodic/Chronic Acute myocardial infarction (10 sources) Myocardial infarction; Translations: [Non-ST elevation (NSTEMI) myocardial infarction] Onset: 06-23-2025 06-26-2025 Chronic Allergic reactions (2 sources) Contact dermatitis due to plants; Translations: [Unspecified contact dermatitis due to plants, except food] Onset: 04-29-2025 04-29-2025 Episodic Coronary atherosclerosis and other heart disease (2 sources) Presence of coronary angioplasty implant and graft; Translations: [Presence of coronary angioplasty implant and graft] Onset: 06-23-2025 Episodic Nonspecific chest pain (3 sources) Chest pain, unspecified; Translations: [Chest pain, unspecified type] Onset: 06-22-2025 Episodic Other upper respiratory infections (1 source) Acute upper respiratory infection, unspecified; Translations: [URI, acute] Onset: 06-22-2025 Episodic Results Test Name Value Interpretation Reference Range Facility CBC W Auto Differential pane l (Bld)on 06-26-2025 Basophils (Bld) [#/Vol] 0 10*3/uL 0.0 - 0.2 10*3/uL [facility] Basophils/100 WBC (Bld) 0.4 % 0.0 - 2.0 % [facility] Eosinophils (Bld) [#/Vol] 0.3 10*3/uL 0.0 - 0.5 10*3/uL [facility] Eosinophils/100 WBC (Bld) 2.8 % 0.0 - 6.0 % [facility] Erythrocyte distribution width (RBC) [Ratio] 13.3 % 11.5 - 15.0 % [facility] Hematocrit (Bld) [Volume fraction] 32.8 % Low 35.0 - 47.0 % [facility] Hemoglobin (Bld) [Mass/Vol] 10.8 g/dL Low 11.7 - 16.0 g/dL [facility] Immature granulocytes (Bld) [#/Vol] 0 10*3/uL NINF - 0.1 10*3/uL [facility] Immature granulocytes/100 WBC (Bld) 0.4 % 0.0 - 2.0 % [facility] Interpretation and review of laboratory results Abnormal [facility] Lymphocytes (Bld) [#/Vol] 1.6 10*3/uL 1.0 - 4.3 10*3/uL [facility] Lymphocytes/100 WBC (Bld) 17.8 % 15.0 - 45.0 % [facility] MCH (RBC) [Entitic mass] 28.5 pg 26.0 - 34.0 pg [facility] MCHC (RBC) [Mass/Vol] 32.9 % 30.5 - 36.0 % [facility] MCV (RBC) [Entitic vol] 86.5 fL 77.0 - 99.0 fL [facility] Monocytes (Bld) [#/Vol] 0.9 10*3/uL 0.0 - 0.9 10*3/uL [facility] Monocytes/100 WBC (Bld) 10.2 % 5.0 - 13.0 % [facility] Neutrophils (Bld) [#/Vol] 6.1 10*3/uL 1.8 - 7.5 10*3/uL [facility] Neutrophils/100 WBC (Bld) 68.4 % 38.0 - 82.0 % [facility] Nucleated RBC/100 WBC (Bld) [Ratio] 0 % [facility] Platelet mean volume (Bld) [Entitic vol] 11.9 fL 9.0 - 12.7 fL [facility] Platelets (Bld) [#/Vol] 150 10*3/uL 140 - 440 10*3/uL [facility] RBC (Bld) [#/Vol] 3.79 10*6/uL Low 3.80 - 5.2 0 10*6/uL [facility] WBC (Bld) [#/Vol] 9 10*3/uL 3.6 - 10.7 10*3/uL [facility] CBC WITH AUTO DIFFERENTIALon 06-26-2025 Basophils (Bld) [#/Vol] 0.0 10*3/uL Normal 0.0-0.2 [facility] Comment on above: Performed By: #### L [id number] #### [employer] Leader: FLAKITO ROMAN ([id number]) [facility]) [address] [place] [address] Basophils/100 WBC (Bld) 0.4 % Normal 0.0-2.0 [facility] Comment on above: Performed By: #### L [id number] #### [employer] Manufacturing Leader: FLAKITO ROMAN ([id number]) [facility] ([facility]) [address] [place] [address] [place] Eosinophils (Bld) [#/Vol] 0.3 10*3/uL Normal 0.0-0.5 [facility] Comment on above: Performed By: #### L [id number] #### [employer] Leader: FLAKITO ROMAN ([id number]) [facility]) [address] [place] [address] [place] Eosinophils/100 WBC (Bld) 2.8 % Normal 0.0-6.0 [facility] Comment on above: Performed By: #### L [id number] #### [employer] Manufacturing Leader: FLAKITO ROMAN ([id number]) [facility] ([facility]) [address] [place] [address] Erythrocyte distribution width (RBC) [Ratio] 13.3 % Normal 11.5-15.0 [facility] Comment on above: Performed By: #### L [id number] #### [employer] Leader: FLAKITO ROMAN ([id number]) [facility] ([facility]) [address] [place] [address] Hematocrit (Bld) [Volume fraction] 32.8 % Low 35.0-47.0 [facility] Comment on above: Performed By: #### L [id number] #### [employer] Leader: FLAKITO ROMAN ([id number]) [facility]) [address] [place] [address] Hemoglobin (Bld) [Mass/Vol] 10.8 g/dL Low 11.7-16.0 [facility] Comment on above: Performed By: #### L [id number] #### [employer] Leader: FLAKITO ROMAN ([id number]) [facility] ([facility]) [address] [place] [address] IMMATURE GRANS % 0.4 % Normal 0.0-2.0 [facility] Comment on above: Performed By: #### L [id number] #### [employer] Leader: FLAKITO ROMAN ([id number]) [facility]) [address] [place] [address] IMMATURE GRANS ABSOLUTE 0.0 10*3/uL Normal <0.1 [facility] Comment on above: Performed By: #### L [id number] #### [employer] Leader: FLAKITO ROMAN ([id number]) [facility]) [address] [place] [address] [place] Lymphocytes (Bld) [#/Vol] 1.6 10*3/uL Normal 1.0-4.3 [facility] Comment on above: Performed By: #### L [id number] #### [employer] Manufacturing Leader: FLAKITO ROMAN ([id number]) [facility]) [address] [place] [address] Lymphocytes/100 WBC (Bld) 17.8 % Normal 15.0-45.0 [facility] Comment on above: Performed By: #### L [id number] #### [employer] Leader: FLAKITO ROMAN ([id number]) [facility]) [address] [place] [address] MCH (RBC) [Entitic mass] 28.5 pg Normal 26.0-34.0 [facility] Comment on above: Performed By: #### L [id number] #### [employer] Leader: FLAKITO ROMAN ([id number]) [facility]) [address] [place] [address] MCHC 32.9 % Normal 30.5-36.0 [facility] Comment on above: Performed By: #### L [id number] #### [employer] Leader: FLAKITO ROMAN ([id number]) [facility] ([facility]) [address] [place] [address] MCV (RBC) [Entitic vol] 86.5 fL Normal 77.0-99.0 [facility] Comment on above: Performed By: #### L [id number] #### [employer] Leader: FLAKITO ROMAN ([id number]) [facility]) [address] [place] [address] Monocytes (Bld) [#/Vol] 0.9 10*3/uL Normal 0.0-0.9 [facility] Comment on above: Performed By: #### L [id number] #### [employer] Leader: FLAKITO ROMAN ([id number]) [facility]) [address] [place] [address] Monocytes/100 WBC (Bld) 10.2 % Normal 5.0-13.0 [facility] Comment on above: Performed By: #### L [id number] #### [employer] Leader: FLAKITO ROMAN ([id number]) [facility]) [address] [place] [address] NEUTROPHILS ABSOLUTE 6.1 10*3/uL Normal 1.8-7.5 [facility] Comment on above: Performed By: #### L [id number] #### [employer] Leader: FLAKITO ROMAN ([id number]) [facility] ([facility]) [address] [place] [address] Neutrophils/100 WBC (Bld) 68.4 % Normal 38.0-82.0 [facility] Comment on above: Performed By: #### L [id number] #### [employer] Leader: FLAKITO ROMAN ([id number]) [facility] ([facility]) [address] [place] [address] NRBC 0.0 /100 WBCs Normal 0.0-2.0 [facility] Comment on above: Performed By: #### L [id number] #### [employer] Leader: FLAKITO ROMAN ([id number]) [facility] ([facility]) [address] [place] [address] Platelet mean volume (Bld) [Entitic vol] 11.9 fL Normal 9.0-12.7 [facility] Comment on above: Performed By: #### L [id number] #### [employer] Leader: FLAKITO ROMAN ([id number]) [facility] ([facility]) [address] [place] [address] [place] Platelets (Bld) [#/Vol] 150 10*3/uL Normal 140-440 [facility] Comment on above: Performed By: #### L [id number] #### [employer] Leader: FLAKITO ROMAN ([id number]) [facility] ([facility]) [address] [place] [address] RBC (Bld) [#/Vol] 3.79 10*6/uL Low 3.80-5.20 [facility] Comment on above: Performed By: #### L [id number] #### [employer] Leader: FLAKITO ROMAN ([id number]) [facility] ([facility]) [address] [place] [address] WBC (Bld) [#/Vol] 9.0 10*3/uL Normal 3.6-10.7 [facility] Comment on above: Performed By: #### L [id number] #### [employer] Leader: FLAKITO ROMAN ([id number]) [facility] ([facility]) [address] [place] [address] COMPREHENSIVE METABOLIC PANE José Miguel 06-26-2025 Albumin [Mass/Vol] 2.7 g/dL Low 3.1-4.5 [facility] Comment on above: Performed By: #### L [id number], [id number], [id number] ####[employer] Leader: FLAKITO ROMAN ([id number])[facility] [place] [address] ALP [Catalytic activity/Vol] 118 U/L Normal 40-150 [facility] Comment on above: Performed By: #### L [id number], [id number], [id number] ####[employer] Leader: FLAKITO ROMAN ([id number])[facility] ([facility])[address] [place] [address] ALT [Catalytic activity/Vol] 36 U/L High <30 [facility] Comment on above: Performed By: #### L [id number], [id number], [id number] ####[employer] Leader: FLAKITO ROMAN ([id number])[facility] ([facility])[address] [place] [address] Anion gap [Moles/Vol] 7 mmol/L Normal 3-13 [facility] Comment on above: Performed By: #### L AB17, [id number], [id number] ####[employer] Manufacturing Leader: FLAKITO ROMAN ([phone])[facility] ([facility])[address] [place] [address] AST [Catalytic activity/Vol] 58 U/L High <34 [facility] Comment on above: Performed By: #### L AB17, [id number], [id number] ####[employer] Manufacturing Leader: FLAKITO ROMAN ([phone])[facility])[address] [place] [address] Bilirubin [Mass/Vol] 0.3 mg/dL Normal <1.2 [facility] Comment on above: Performed By: #### L AB17, [id number], [id number] ####[employer] Manufacturing Leader: FLAKITO ROMAN ([phone])[facility] ([facility])[address] [place] [address] Calcium [Mass/Vol] 8.4 mg/dL Low 8.8-10.0 [facility] Comment on above: Performed By: #### L AB17, [id number], QSE801 ####[employer] Leader: FLAKITO ROMAN ([phone])[facility] ([facility] [place] [address] Chloride [Moles/Vol] 106 mmol/L Normal 98-107 [facility] Comment on above: Performed By: #### L AB17, [id number], NQX110 ####[employer] Leader: FLAKITO ROMAN ([phone])[facility] ([facility])[address] [place] [address] CO2 [Moles/Vol] 23 mmol/L Normal 23-31 [facility] Comment on above: Performed By: #### L AB17, [id number], [id number] ####[employer] Leader: FLAKITO ROMAN ([phone])[facility] ([facility])[address] [place] [address] Creatinine [Mass/Vol] 0.73 mg/dL Normal 0.58-1.12 [facility] Comment on above: Performed By: #### L AB17, [id number], JGI220 ####[employer] Manufacturing Leader: FLAKITO ROMAN ([id number])[facility] ([facility])[address] [place] [address] GLOMERULAR FILTRATION RATE ML/MIN/1.73 SQ M.PREDICTED >90.0 Normal >60.0 [facility] Comment on above: Result Comment: Calc ulation based on the Chronic Kidney Disease Epidemiology Collaboration (CKD-EPI) equation refit without adjustment for race Performed By: #### L AB17, [id number], [id number] ####[employer] Manufacturing Leader: FLAKITO ROMAN ([id number])[facility] ([facility])[address] [place] [address] [place] Glucose [Mass/Vol] 132 mg/dL High 82-115 [facility] Comment on above: Performed By: #### L AB17, UZW282, YST469 ####[employer] Manufacturing Leader: FLAKITO ROMAN ([id number])[facility])[address] [place] [address] Potassium [Moles/Vol] 3.9 mmol/L Normal 3.5-5.1 [facility] Comment on above: Result Comment: [facility] potassium values may be up to 0.5 mmol/L lower than serum values. Performed By: #### L AB17, RCF208, CII235 ####[employer] Manufacturing Leader: FLAKITO ROMAN ([id number])[facility])[address] [place] [address] Protein [Mass/Vol] 6.1 g/dL Low 6.4-8.3 [facility] Comment on above: Performed By: #### L AB17, RAO522, VGN031 ####[employer] Manufacturing Leader: FLAKITO ROMAN ([id number])[address] Sodium [Moles/Vol] 136 mmol/L Normal 136-145 [facility] Comment on above: Performed By: #### L AB17, EKR559, [id number] ####[employer] Manufacturing Leader: FLAKITO ROMAN ([id number])[address] Urea nitrogen [Mass/Vol] 18 mg/dL Normal 9-23 [facility] Comment on above: Performed By: #### L AB17, [id number], [id number] ####[employer] Manufacturing Leader: FLAKITO ROMAN ([id number])[address] Comprehensive metabolic 1998 panelon 06-26-2025 Albumin [Mass/Vol] 2.7 g/dL Low 3.1 - 4.5 g/dL [facility] ALP [Catalytic activity/Vol] 118 U/L 40 - 150 U/L [facility] ALT [Catalytic activity/Vol] 36 U/L High NINF - 30 U/L [facility] Anion gap [Moles/Vol] 7 mmol/L 3 - 13 mmol/L [facility] AST [Catalytic activity/Vol] 58 U/L High NINF - 34 U/L [facility] Bilirubin [Mass/Vol] 0.3 mg/dL NINF - 1.2 mg/dL [facility] Calcium [Mass/Vol] 8.4 mg/dL Low 8.8 - 10. 0 mg/dL [facility] Chloride [Moles/Vol] 106 mmol/L 98 - 10 7 mmol/L [facility] CO2 [Moles/Vol] 23 mmol/L 23 - 31 mmol/L [facility] Creatinine [Mass/Vol] 0.73 mg/dL 0.58 - 1.12 mg/dL [facility] GFR/1.73 sq M.predicted (S/P/Bld) [Vol rate/Area] - PINF [facility] Comment on above: Calculation based on the Chronic Kidney Disease Epidemiology Collaboration (CKD-EPI) equation refit without adjustment for race Glucose [Mass/Vol] 132 mg/dL High 82 - 115 mg/dL [facility] Interpretation and review of laboratory results Abnormal [facility] Potassium [Moles/Vol] 3.9 mmol/L 3.5 - 5.1 mmol/L [facility] Comment on above: Plasma potassium nichelle ues may be up to 0.5 mmol/L lower than serum values. Protein [Mass/Vol] 6.1 g/dL Low 6.4 - 8.3 g/dL [facility] Sodium [Moles/Vol] 136 mmol/L 136 - 145 mmol/L [facility] Urea nitrogen [Mass/Vol] 18 mg/dL 9 - 23 mg/dL [facility] Laboratory - Chemistry and C hemistry - challengeon 06-26-2025 Glucose [Mass/Vol] 265 mg/dL High 70 - 100 mg/dL [facility] Magnesium [Mass/Vol] 2 mg/dL 1.6 - 2 .6 mg/dL [facility] MAGNESIUMon 06-26-2025 Magnesium [Mass/Vol] 2.0 mg/dL Normal 1.6-2.6 [facility] Comment on above: Result Comment: EDITH Gillette COMMENTS: Higher values can be expected in females during menses. Performed By: #### L AB17, [id number], [id number] ####[employer] Manufacturing Leader: FLAKITO ROMAN ([id number])[facility] ([address] Magnesium [Mass/Vol]on 06-26 Higher values can be expected in females during menses. [facility] No Panel Informationon 06-26 Interpretation and review of laboratory results Abnormal [facility] Performed by: [facility], [address] [place] [address] CLIA ID: [id number] [facility] Interpretation and review of laboratory results Abnormal [facility] POCT ACT [facility] Comment on above: Result above instrum ent displayable range; POCT ACT 326 High [facility] Performed by: [facility], [address] [place] [address] CLIA ID: [id number] [facility] Interpretation and review of laboratory results Normal [facility] PHOSPHORUSon 06-26-2025 Phosphate [Mass/Vol] 3.6 mg/dL Normal 2.3-4.7 [facility] Comment on above: Performed By: #### L AB17, [id number], [id number] ####[employer] Manufacturing Leader: FLAKITO ROMAN ([id number])[facility] ([facility])[address] [place] [address] Phosphate [Moles/Vol]on Phosphate [Mass/Vol] 3.6 mg/dL 2.3 - 4 .7 mg/dL [facility] Progress Noteon 06-26-2025 Progress Note - Attestation signed by Bi Mejia MD at 06/26/2025 11:36 AM The patient was seen and examined on rounds today. Independent history and physical exam were obtained. The assessment and plan were made together. I will sign the discharge summary once its available. We spent greater than 30 minutes executing this discharge. Checked on pt this morning. Feels well without CP, SOB, MCCRACKEN, vision or speech changes. Radial site stable. Femoral site stable with tenderness over pubic area with palpation. No issues when ambulating to toilet. VSS. Likely discharge home today. Plans to remain in [place] with family for next few weeks before going back to home in [place]. Arranged follow up appt in [place] next week in Dr. Shelton's office. Advised to continue ASA 81mg daily lifelong without interruption and Brilinta 90mg PO BID for at least 1 year without interruption. Discharge instructions, medications, restrictions, and follow up appt reviewed and verbalized understanding. She will utilize [facility] for home-going Rx. She was instructed to inform office if: has any difficulty obtaining Rx or if this becomes a financial burden or if anyone asks to hold ASA or ticagrelor. Patient verbalized understanding. Updated ICS team who will be seeing pt and finalizing discharge. Normal [facility] Progress Note - Attestation signed by Bi Mejia MD at 06/26/2025 3:42 PM The patient was seen and examined on rounds today. Physical exam were obtained. The assessment and plan were made together. [facility] [place] [facility] In-Patient Cardiology Service (ICS) Progress Note If patient is on ICS, for questions (see Product Owner Finder): 7:00 AM- 5:00 PM: Contact ICS Fellow 5:00 PM - 11:00 PM: Contact ICS Moonlighter 11:00 PM- 7:00 AM: Contact Night Call (HLU) Fellow HOSPITAL COURSE: Theresa Marx is a 59-year-old female with a history of T2DM, HTN, prior tobacco use, MDD/anxiety who presented to [facility] on 06/22/2025 found to have obstructive CAD with acute onset chest pain transferred to [facility] for PCI versus CABG. She was evaluated by cardiothoracic surgery and decision was made to proceed with PCI. OVN EVENTS: No acute events SUBJECTIVE: Feels well this morning. Denies chest pain, shortness of breath, palpitations, lightheadedness, orthopnea or other new symptoms. Assessment/Plan Coronary artery disease Hyperlipidemia Underwent coronary angiogram at OSH found to have single-vessel obstructive CAD with proximal LAD and ostial D1 stenosis. Transferred to [facility] for heart team approach and after further shared decision making patient elected to proceed with PCI. Plan: - Continue aspirin 81 mg daily - Continue ticagrelor 90 mg twice daily - Continue rosuvastatin 40 mg daily - Continue metoprolol succinate 25 mg daily Hypertension - Continue metoprolol as above - Start losartan 25 mg daily Type 2 diabetes mellitus - Insulin SSI plus POCT before every meal/nightly MDD/anxiety - Continue venlafaxine XR 75 mg daily - Continue bupropion XL 150 mg daily Medications: Scheduled Meds[1] Infusion Medications: Continuous Meds[2] Physical Examination: Vitals: 06/25/25 2051 06/25/25 2226 06/26/25 0255 06/26/25 0422 BP: 99/58 93/55 (!) 97/48 108/55 BP Location: Patient Position: Pulse: 73 82 79 77 Resp: 19 Temp: 36.1 ?C (96.9 ?F) 36.7 ?C (98 ?F) 36.5 ?C (97.7 ?F) 36.4 ?C (97.6 ?F) TempSrc: Temporal Temporal Temporal Temporal SpO2: 98% 98% 96% 98% Weight: 152 lb 1.6 oz (69 kg) Height: Intake/Output Summary (Last 24 hours) at 06/26/2025 0812 Last data filed at 06/26/2025 0148 Gross per 24 hour Intake 400 ml Output 10 ml Net 390 ml Wt Readings from Last 3 Encounters: 06/26/25 152 lb 1.6 oz (69 kg) Physical Exam: GEN: NAD, AT/AC, MMM ENT: Oral mucosa is pink and moist CARDS: RRR, S1/S2, No R,M,G, JVD normal RESP: Poor air movement, decreased bibasilar breath sounds. No ronchi, wheezing VASC: 2+ Peripheral pulses ABD: NT, ND, BS+ Extremities: Trace LE edema Skin: Warm to touch and well perfused NEURO/PSYCH: A&O x 3, no focal deficits Laboratory Tests: Recent Labs 06/23/25194906/24/2530706/25/2522406/26/25241 NA 136 136 137 136 K 3.5 3.5 3.7 3.9 CL 105 105 105 106 CO2 25 28 26 23 BUN 10 10 16 18 CREATININE 0.66 0.67 0.66 0.73 Recent Labs 06/23/25194906/24/2530706/25/2522406/26/25 024 WBC 8.0 7.2 7.7 9.0 HGB 11.8 11.7 11.6* 10.8* HCT 35.4 35.3 34.9* 32.8* MCV 85.9 86.1 85.5 86.5 PLT 124* 132* 127* 150 Recent Labs 06/23/251949 CKTOTAL 387* CKMB 20.2* Recent Labs 06/23/251949 BNP 668* Recent Labs 06/23/251949 TRIG 59 HDL 43* LDLCALC 155* CHOL 210* No results found for: LDLCHOLESTER Lab Results Component Value Date TSH 1.01 06/23/2025 EF BP Date Value Ref Range Status 06/25/2025 58 55 - 100 % Final 06/23/25 TRANSTHORACIC ECHOCARDIOGRAM (TTE) COMPLETE (CONTRAST/BUBBLE/3D PRN) 06/25/2025 12:56 PM (Final) Interpretation Summary Left Ventricle: Left ventricle size is normal. Normal wall thickness. Normal left ventricular systolic function. EF by 2D Simpsons Biplane is 58%. Global longitudinal strain is -18.9%. Normal wall motion. Normal diastolic function. Right Ventricle: Right ventricle size is normal. Normal systolic function. Aorta: Normal sized sinuses of Valsalva and ascending aorta. Aortic Valve: Not well visualized. Mildly thickened cusps. Mildly calcified cusps. Left and right cusps sclerosis. No regurgitation. No stenosis. No significant valvular abnormalities. Technically difficult study. Signed by: Barbara Hendricks MD on 06/25/2025 12:56 PM Cardiac Tests: EF BP Date Value Ref Range Status 06/25/2025 58 55 - 100 % Final Anton Arteaga MD Date Of Service 06/26/2025 [1] aspirin, 81 mg, Oral, Daily buPROPion XL, 150 mg, Oral, Daily influenza, 0.5 mL, IntraMUSCular, Once insulin lispro, 0-12 Units, SubCUTAneous, TID WC And insulin lispro, 0-12 Units, SubCUTAneous, Nightly metoprolol succinate XL, 25 mg, Oral, Daily rosuvastatin, 40 mg, Oral, (more content not included)... Normal [facility] APTTon 06-25-2025 aPTT Coag (Bld) [Time] 50.7 s High 20.0-30.5 [facility] Comment on above: Result Comment: EDITH Gillette COMMENTS: NOTE: The therapeutic time for Heparin anticoagulation, based on Xa activity inhibition, is an APTT of 46-80 seconds. Performed By: #### L [id number] #### [employer] Manufacturing Leader: FLAKITO ROMAN ([phone]) [address] aPTT Coag (Bld) [Time] 58.4 s High 20.0-30.5 [facility] Comment on above: Result Comment: EDITH Gillette COMMENTS: NOTE: The therapeutic time for Heparin anticoagulation, based on Xa activity inhibition, is an APTT of 46-80 seconds. Performed By: #### L [id number] #### [employer] Manufacturing Leader: FLAKITO ROMAN ([id number]) [facility] ([facility]) [address] [place] [address] Anesthesia Noteon 06-25-2025 Anesthesia Note Sedation Plan ASA class 3 - patient with severe systemic disease Mallampati class: II - soft palate, uvula, fauces visible. Sedation plan: local anesthesia and moderate (conscious sedation) Risks, benefits, and alternatives discussed with patient. Immediate reassessment prior to sedation: Patient's status reviewed and vital signs assessed; acceptable to perform procedure and proceed to administer sedation as planned. Normal [facility] CBC W Auto Differential pane l (Bld)on 06-25-2025 Basophils (Bld) [#/Vol] 0 10*3/uL 0.0 - 0.2 10*3/uL [facility] Basophils/100 WBC (Bld) 0.3 % 0.0 - 2.0 % [facility] Eosinophils (Bld) [#/Vol] 0.3 10*3/uL 0.0 - 0.5 10*3/uL [facility] Eosinophils/100 WBC (Bld) 3.3 % 0.0 - 6.0 % [facility] Erythrocyte distribution width (RBC) [Ratio] 12.8 % 11.5 - 15.0 % [facility] Hematocrit (Bld) [Volume fraction] 34.9 % Low 35.0 - 47.0 % [facility] Hemoglobin (Bld) [Mass/Vol] 11.6 g/dL Low 11.7 - 16.0 g/dL [facility] Immature granulocytes (Bld) [#/Vol] 0 10*3/uL NINF - 0.1 10*3/uL [facility] Immature granulocytes/100 WBC (Bld) 0.4 % 0.0 - 2.0 % [facility] Interpretation and review of laboratory results Abnormal [facility] IPF 5 [facility] Lymphocytes (Bld) [#/Vol] 1.8 10*3/uL 1.0 - 4.3 10*3/uL [facility] Lymphocytes/100 WBC (Bld) 24 % 15.0 - 45.0 % [facility] MCH (RBC) [Entitic mass] 28.4 pg 26.0 - 34.0 pg [facility] MCHC (RBC) [Mass/Vol] 33.2 % 30.5 - 36.0 % [facility] MCV (RBC) [Entitic vol] 85.5 fL 77.0 - 99.0 fL [facility] Monocytes (Bld) [#/Vol] 0.7 10*3/uL 0.0 - 0.9 10*3/uL [facility] Monocytes/100 WBC (Bld) 9.4 % 5.0 - 13.0 % [facility] Neutrophils (Bld) [#/Vol] 4.8 10*3/uL 1.8 - 7.5 10*3/uL [facility] Neutrophils/100 WBC (Bld) 62.6 % 38.0 - 82.0 % [facility] Nucleated RBC/100 WBC (Bld) [Ratio] 0 % [facility] Platelet mean volume (Bld) [Entitic vol] 11.5 fL 9.0 - 12.7 fL [facility] Platelets (Bld) [#/Vol] 127 10*3/uL Low 140 - 440 10*3/uL [facility] RBC (Bld) [#/Vol] 4.08 10*6/uL 3.80 - 5.2 0 10*6/uL [facility] WBC (Bld) [#/Vol] 7.7 10*3/uL 3.6 - 10.7 10*3/uL [facility] CBC WITH AUTO DIFFERENTIALon 06-25-2025 Basophils (Bld) [#/Vol] 0.0 10*3/uL Normal 0.0-0.2 [facility] Comment on above: Performed By: #### L [id number] #### Lean Manufacturing Leader: FLAKITO ROMAN ([phone]) [facility] ([facility]) [address] [place] [address] [place] Basophils/100 WBC (Bld) 0.3 % Normal 0.0-2.0 [facility] Comment on above: Performed By: #### L [id number] #### Lean Manufacturing Leader: FLAKITO ROMAN ([id number]) [facility] ([facility]) [address] [place] [address] [place] Eosinophils (Bld) [#/Vol] 0.3 10*3/uL Normal 0.0-0.5 [facility] Comment on above: Performed By: #### L [id number] #### Lean Manufacturing Leader: FLAKITO ROMAN ([id number]) [facility] ([facility]) [address] [place] [address] [place] Eosinophils/100 WBC (Bld) 3.3 % Normal 0.0-6.0 [facility] Comment on above: Performed By: #### L [id number] #### Lean Manufacturing Leader: FLAKITO [id number]) [facility] ([facility]) [address] [place] [address] Erythrocyte distribution width (RBC) [Ratio] 12.8 % Normal 11.5-15.0 [facility] Comment on above: Performed By: #### L [id number] #### Lean Manufacturing Leader: FLAKITO ROMAN ([id number]) [facility] ([facility]) [address] [place] [address] Hematocrit (Bld) [Volume fraction] 34.9 % Low 35.0-47.0 [facility] Comment on above: Performed By: #### L [id number] #### Lean Manufacturing Leader: FLAKITO ROMAN ([phone]) [facility]) [address] [place] [address] Hemoglobin (Bld) [Mass/Vol] 11.6 g/dL Low 11.7-16.0 [facility] Comment on above: Performed By: #### L [id number] #### Lean Manufacturing Leader: FLAKITO ROMAN ([id number]) [facility] ([facility]) [address] [place] [address] IMMATURE GRANS % 0.4 % Normal 0.0-2.0 [facility] Comment on above: Performed By: #### L [id number] #### Lean Manufacturing Leader: FLAKITO ROMAN ([id number]) [facility]) [address] [place] [address] IMMATURE GRANS ABSOLUTE 0.0 10*3/uL Normal <0.1 [facility] Comment on above: Performed By: #### L [id number] #### Lean Manufacturing Leader: FLAKITO ROMAN ([phone]) [facility] ([facility]) [address] [place] [address] [place] IPF 5 Normal [facility] Comment on above: Performed By: #### L [id number] #### Lean Manufacturing Leader: FLAKITO ROMAN ([id number]) [facility] ([facility]) [address] [place] [address] Lymphocytes (Bld) [#/Vol] 1.8 10*3/uL Normal 1.0-4.3 [facility] Comment on above: Performed By: #### L [id number] #### Lean Manufacturing Leader: FLAKITO ROMAN ([id number]) [facility]) [address] [place] [address] Lymphocytes/100 WBC (Bld) 24.0 % Normal 15.0-45.0 [facility] Comment on above: Performed By: #### L [id number] #### Lean Manufacturing Leader: FLAKITO ROMAN ([id number]) [facility] ([facility]) [address] [place] [address] MCH (RBC) [Entitic mass] 28.4 pg Normal 26.0-34.0 [facility] Comment on above: Performed By: #### L [id number] #### Lean Manufacturing Leader: FLAKITO ROMAN ([id number]) [facility]) [address] [place] [address] MCHC 33.2 % Normal 30.5-36.0 [facility] Comment on above: Performed By: #### L [id number] #### Lean Manufacturing Leader: FLAKITO ROMAN ([id number]) [facility] ([facility]) [address] [place] [address] MCV (RBC) [Entitic vol] 85.5 fL Normal 77.0-99.0 [facility] Comment on above: Performed By: #### L [id number] #### Lean Manufacturing Leader: FLAKITO ROMAN ([id number]) [facility]) [address] [place] [address] Monocytes (Bld) [#/Vol] 0.7 10*3/uL Normal 0.0-0.9 [facility] Comment on above: Performed By: #### L [id number] #### Lean Manufacturing Leader: FLAKITO ROMAN ([id number]) [facility]) [address] [place] [address] Monocytes/100 WBC (Bld) 9.4 % Normal 5.0-13.0 [facility] Comment on above: Performed By: #### L [id number] #### Lean Manufacturing Leader: FLAKITO ROMAN ([id number]) [facility] ([facility]) [address] [place] [address] NEUTROPHILS ABSOLUTE 4.8 10*3/uL Normal 1.8-7.5 [facility] Comment on above: Performed By: #### L [id number] #### Lean Manufacturing Leader: FLAKITO ROMAN ([id number]) [facility] ([facility]) [address] [place] [address] Neutrophils/100 WBC (Bld) 62.6 % Normal 38.0-82.0 [facility] Comment on above: Performed By: #### L [id number] #### Lean Manufacturing Leader: FLAKITO ROMAN ([id number]) [facility] ([facility]) [address] [place] [address] NRBC 0.0 /100 WBCs Normal 0.0-2.0 [facility] Comment on above: Performed By: #### L [id number] #### Lean Manufacturing Leader: FLAKITO ROMAN ([phone]) [facility] [address] [place] [address] Platelet mean volume (Bld) [Entitic vol] 11.5 fL Normal 9.0-12.7 [facility] Comment on above: Performed By: #### L [id number] #### Lean Manufacturing Leader: FLAKITO ROMAN ([id number]) [facility] ([facility]) [address] [place] [address] Platelets (Bld) [#/Vol] 127 10*3/uL Low 140-440 [facility] Comment on above: Performed By: #### L [id number] #### Lean Manufacturing Leader: FLAKITO ROMAN ([id number]) [facility] ([facility] [address] [place] [address] RBC (Bld) [#/Vol] 4.08 10*6/uL Normal 3.80-5.20 [facility] Comment on above: Performed By: #### L [id number] #### Lean Manufacturing Leader: FLAKITO ROMAN ([id number]) [facility] ([facility] [address] [place] [address] WBC (Bld) [#/Vol] 7.7 10*3/uL Normal 3.6-10.7 [facility] Comment on above: Performed By: #### L [id number] #### Lean Manufacturing Leader: FLAKITO ROMAN ([phone]) [facility] ([facility]) [address] [place] [address] COMPREHENSIVE METABOLIC PANE José Miguel 06-25-2025 Albumin [Mass/Vol] 2.9 g/dL Low 3.1-4.5 [facility] Comment on above: Performed By: #### L [id number] #### [employer]an Manufacturing Leader: FLAKITO ROMAN ([id number]) [facility] ([facility]) [address] [place] [address] ALP [Catalytic activity/Vol] 132 U/L Normal 40-150 [facility] Comment on above: Performed By: #### L [id number] #### Lean Manufacturing Leader: FLAKITO ROMAN ([id number]) [facility] ([facility]) [address] [place] [address] ALT [Catalytic activity/Vol] 48 U/L High <30 [facility] Services [facility] Comment on above: Performed By: #### L [id number] #### Lean Manufacturing Leader: FLAKITO ROMAN ([phone]) [facility] ([facility]) [address] [place] [address] Anion gap [Moles/Vol] 6 mmol/L Normal 3-13 [facility] Comment on above: Performed By: #### L [id number] #### Lean Manufacturing Leader: FLAKITO ROMAN ([id number]) [facility] ([facility]) [address] [place] [address] AST [Catalytic activity/Vol] 89 U/L High <34 [facility] Comment on above: Performed By: #### L [id number] #### Lean Manufacturing Leader: FLAKITO ROMAN ([id number]) [facility] [address] [place] [address] Bilirubin [Mass/Vol] 0.4 mg/dL Normal <1.[address] [facility] Comment on above: Performed By: #### L [id number] #### Lean Manufacturing Leader: FLAKITO ROMAN ([id number]) [facility] ([facility] [address] [place] [address] Calcium [Mass/Vol] 8.7 mg/dL Low 8.8-10.0 [facility] Comment on above: Performed By: #### L [id number] #### Lean Manufacturing Leader: FLAKITO ROMAN ([id number]) [facility] ([facility] [address] [place] [address] [place] Chloride [Moles/Vol] 105 mmol/L Normal 98-107 [facility] Comment on above: Performed By: #### L [id number] #### Lean Manufacturing Leader: FLAKITO ROMAN ([id number]) [facility] ([facility] [address] [place] [address] CO2 [Moles/Vol] 26 mmol/L Normal 23-31 [facility] Comment on above: Performed By: #### L [id number] #### Lean Manufacturing Leader: FLAKITO ROMAN ([id number]) [facility] ([facility] [address] [place] [address] Creatinine [Mass/Vol] 0.66 mg/dL Normal 0.58-1.12 [facility] Comment on above: Performed By: #### L [id number] #### Lean Manufacturing Leader: FLAKITO ROMAN ([id number]) [facility] ([facility]) [address] [place] [address] GLOMERULAR FILTRATION RATE ML/MIN/1.73 SQ M.PREDICTED >90.0 Normal >60.0 [facility] Comment on above: Result Comment: Calc ulation based on the Chronic Kidney Disease Epidemiology Collaboration (CKD-EPI) equation refit without adjustment for race Performed By: #### L [id number] #### Lean Manufacturing Leader: FLAKITO ROMAN ([id number]) [facility] ([facility] [address] [place] [address] [place] Glucose [Mass/Vol] 114 mg/dL Normal 82-115 [facility] Comment on above: Performed By: #### L [id number] #### Lean Manufacturing Leader: FLAKITO [id number]) [facility] ([facility]) [address] [place] [address] Potassium [Moles/Vol] 3.7 mmol/L Normal 3.5-5.1 [facility] Comment on above: Result Comment: [facility] potassium values may be up to 0.5 mmol/L lower than serum values. Performed By: #### L [id number] #### Lean Manufacturing Leader: FLAKITO ROMAN ([id number]) [facility] ([facility]) [address] [place] [address] Protein [Mass/Vol] 6.6 g/dL Normal 6.4-8.3 [facility] Comment on above: Performed By: #### L [id number] #### Lean Manufacturing Leader: FLAKITO ROMAN ([id number]) [facility] ([facility]) [address] [place] [address] Sodium [Moles/Vol] 137 mmol/L Normal 136-145 [facility] Comment on above: Performed By: #### L [id number] #### Lean Manufacturing Leader: FLAKITO ROMAN ([id number]) [facility] ([facility]) [address] [place] [address] Urea nitrogen [Mass/Vol] 16 mg/dL Normal 9-23 [facility] Comment on above: Performed By: #### L [id number] #### Lean Manufacturing Leader: FLAKITO ROMAN ([id number]) [facility] ([facility]) [address] [place] [address] Cardiac catheterization [facility] 06-25-2025 Coronary Arteriography Dominance: Left dominance [facility] Left Main: Large caliber vessel with 70% severe calcified diffuse proximal to distal LM disease Left Anterior Descending: Severe diffuse 90% Ostial LAD to mid LAD stenosis at bifurcation of first diagonal. Diagonals: D1 is moderate caliber vessel with no significant ostial disease by IVUS. D2 is small caliber vessel. Left Circumflex: Small caliber vessel with mild diffuse disease. Obtuse Marginals: One obtuse marginal with mild diffuse disease. Right Coronary: Non injected. [facility] Collaterals: None Coronary Intervention Successful IVUS guided PCI of proximal LM post-dilated with 3.5 mm sunitha-compliant balloon at 20 dylon Successful IVUS guided JESSIE of ostial, proximal and mid LAD with 2.50 x 38 mm Cor Skypoint JESSIE post dilated with a 3.00 mm semi complaint balloon in proximal LAD. Complications None Conclusions Severe proximal, mid and distal Left Main CAD by angio and IVUS Severe ostial, proximal and mid LAD disease by angio and IVUS Successful IVUS guided JESSIE of unprotected LMCA Successful IVUS guided JESSIE of calcified ostial, proximal and mid LAD Plan JESSIE maintenance with DAPT: Aspirin and Brilinta. Medical management of CAD with aspirin, high intensity statin, GDMT with ACEI/ARB and betablocker if BP allows. Cardiac rehab as outpatient. Procedure Details After obtaining informed consent, the patient was brought to the procedure suite in supine position. Continuous ECG monitoring, pulse oximetry, and blood pressure assessments were established. The patient was sedated with IV midazolam and fentanyl for comfort. Soft tissue overlying the right groin was anesthetized with 1% lidocaine. Right femoral arterial access was obtained using a micropuncture technique, a 7 Fr sheath was introduced into right femoral artery. Anticoagulation was achieved with IV heparin to maintain therapeutic activated clotting time (ACT). PCI of LM into proximal LAD: A 7 Fr EBU3.5 guide catheter engaged the left coronary. A Hi-Torq Floppy II J guidewire crossed the proximal LAD lesion, with a second wire placed in the diagonal branch for protection. Intravascular ultrasound (IVUS) with a 5 Fr Boundary Eye 20mm catheter was performed to assess lesion characteristics and vessel size, though initially unable to pass the lesion but successful after predilation. Predilation was performed with a 2.0 x 15 mm semi complaint balloon and a 2.50 x 20 mm NC balloon. A 2.50 x 38 mm Cor Skypoint JESSIE was deployed in the proximal LAD. Post-dilation was performed with a 3.00 x 15 mm semi complaint balloon in proximal LAD and a 3.50 x 12 mm semi complaint balloon in LM. Final angiogram showed 0% residual stenosis with ENEDINA-3 flow. Follow-up IVUS confirmed optimal stent expansion and apposition with no edge dissection or thrombus. All wires and catheters were removed. Protamine 25 mg IV was administered to reverse heparin. Hemostasis was achieved at the right femoral arterial site with manual compression. No immediate complications were noted. Coronary Findings Diagnostic Dominance: Right Left Main: The vessel is large in size. Mid LM to Dist LM lesion, 60% stenosed. Left Anterior Descending: The vessel is moderate in size. Ost LAD to Prox LAD lesion, 95% stenosed. Prox LAD lesion, 95% stenosed. First Diagonal Branch: The vessel is moderate in size. The vessel exhibits mild disease. Second Diagonal Branch: The vessel is small in size. Left Circumflex: The vessel is small in size. The vessel exhibits mild disease. Right Coronary Artery: The vessel not injected. Intervention Mid LM to Dist LM lesion: Stent (Also treats lesions: Ost LAD to Prox LAD, Prox LAD): Type of stent: drug-eluting. Actions taken: stent inserted, stent placed across lesion and balloon removed. Inflation#1: Pressure = 18 dylon; Duration = 28 sec. Inflation#2: Pressure = 18 dylon; Duration = 12 sec. Supplies Used: STENT COR SKYPOINT [id number] Post-Intervention Lesion Assessment: The guidewire crossed the lesion. Device was deployed. The pre-interventional distal flow is normal (ENEDINA 3). Post-intervention ENEDINA flow is 3. There were no complications. There is a 0% residual stenosis post intervention. Ost LAD to Prox LAD lesion: Angioplasty (Also treats lesions: Prox LAD): Angioplasty was performed following stent deployment. Balloon inserted, inflated, placed across lesion and removed. Balloon inflated using mutiple inflation technique. Balloon 1: Inflation#1: Pressure = 18 dylon; Duration = 14 sec. Inflation#2: Pressure = 18 dylon; Duration = 13 sec. Supplies Used: CATH BLLN TREK RX [id number] Angioplasty: Angioplasty was performed following stent deployment. Balloon inserted, inflated, placed across lesion and removed. Balloon inflated using single inflation technique. Balloon 1: Inflation#1: Pressure = 20 dylon; Duration = 22 sec. Supplies Used: (more content not included)... CV CPACS HEMO [facility] Comprehensive metabolic 1998 panelon 06-25-2025 Albumin [Mass/Vol] 2.9 g/dL Low 3.1 - 4.5 g/dL [facility] ALP [Catalytic activity/Vol] 132 U/L 40 - 150 U/L [facility] ALT [Catalytic activity/Vol] 48 U/L High NINF - 30 U/L [facility] Anion gap [Moles/Vol] 6 mmol/L 3 - 13 mmol/L [facility] AST [Catalytic activity/Vol] 89 U/L High NINF - 34 U/L [facility] Bilirubin [Mass/Vol] 0.4 mg/dL NINF - 1.2 mg/dL [facility] Calcium [Mass/Vol] 8.7 mg/dL Low 8.8 - 10. 0 mg/dL [facility] Chloride [Moles/Vol] 105 mmol/L 98 - 10 7 mmol/L [facility] CO2 [Moles/Vol] 26 mmol/L 23 - 31 mmol/L [facility] Creatinine [Mass/Vol] 0.66 mg/dL 0.58 - 1.12 mg/dL [facility] GFR/1.73 sq M.predicted (S/P/Bld) [Vol rate/Area] - PINF [facility] Comment on above: Calculation based on the Chronic Kidney Disease Epidemiology Collaboration (CKD-EPI) equation refit without adjustment for race Glucose [Mass/Vol] 114 mg/dL 82 - 115 mg/dL [facility] Interpretation and review of laboratory results Abnormal [facility] Potassium [Moles/Vol] 3.7 mmol/L 3.5 - 5.1 mmol/L [facility] Comment on above: Plasma potassium nichelle ues may be up to 0.5 mmol/L lower than serum values. Protein [Mass/Vol] 6.6 g/dL 6.4 - 8.3 g/dL [facility] Sodium [Moles/Vol] 137 mmol/L 136 - 145 mmol/L [facility] Urea nitrogen [Mass/Vol] 16 mg/dL 9 - 23 mg/dL [facility] ECG 12-LEADon 06-25-2025 ECG 12-LEAD IMPRESSION: Sinus rhythm Compared to ECG 06/24/2025 09:40:04 Left bundle-branch block no longer present Electronically Signed On 06-25-2025 16:09:12 EST by Bi Cruz [facility] ECG 12-LEAD IMPRESSION: Sinus rhythm Left bundle branch block Compared to ECG 06/23/2025 19:05:24 No significant changes Electronically Signed On 06-25-2025 09:08:46 EST by Bi Mejia [facility] Laboratory - Chemistry and C hemistry - challengeon 06-25-2025 Glucose [Mass/Vol] 108 mg/dL High 70 - 100 mg/dL [facility] Glucose [Mass/Vol] 102 mg/dL High 70 - 100 mg/dL [facility] Magnesium [Mass/Vol] 1.9 mg/dL 1.6 - 2 .6 mg/dL [facility] MAGNESIUMon 06-25-2025 Magnesium [Mass/Vol] 1.9 mg/dL Normal 1.6-2.6 [facility] Comment on above: Result Comment: ED[facility] [place] COMMENTS: Higher values can be expected in females during menses. Performed By: #### L [id number] #### Lean Manufacturing Leader: FLAKITO ROMAN ([id number]) [facility] ([facility]) [address] [place] [address] Magnesium [Mass/Vol]on 06-25 Higher values can be expected in females during menses. [facility] No Panel Informationon 06-25 Interpretation and review of laboratory results Abnormal [facility] Performed by: [facility], [address] [place] [address] CLIA ID: [id number] [facility] P [place] 56 degrees [facility] [place] Interval 154 ms [facility] QRS [place] 70 degrees [facility] QRSD Interval 106 ms [facility] QT Interval 410 ms [facility] QTC Interval 428 ms [facility] T Wave [place] 15 degrees [facility] Sinus rhythm Compared to ECG 06/24/2025 09:40:04 Left bundle-branch block no longer present Electronically Signed On 06-25-2025 16:09:12 EST by Bi Gary MD - 06/25/2025 IMPRESSION: Sinus rhythm Compared to ECG 06/24/2025 09:40:04 Left bundle-branch block no longer present Electronically Signed On 06-25-2025 16:09:12 EST by Bi Mejia [facility] Sinus rhythm Left bundle branch block Compared to ECG 06/23/2025 19:05:24 No significant changes Electronically Signed On 06-25-2025 09:08:46 EST by Bi Gary MD - 06/25/2025 IMPRESSION: Sinus rhythm Left bundle branch block Compared to ECG 06/23/2025 19:05:24 No significant changes Electronically Signed On 06-25-2025 09:08:46 EST by Bi Mejia [facility] Interpretation and review of laboratory results Abnormal [facility] Performed by: [facility], [address] [place] [id number] CLIA ID: [id number] [facility] Interpretation and review of laboratory results Normal [facility] No Panel InformationOrdered By: Bi Mejia on 06-25-2025 P [place] 49 degrees [employer] Work Phone: [place] Interval 149 ms [employer] Work Phone: QRS [place] 6 degrees [employer] Work Phone: QRSD Interval 138 ms [facility] Work Phone: QT Interval 398 ms [employer] Work Phone: QTC Interval 491 ms [employer] Work Phone: T Wave [place] 123 degrees [employer] Work Phone: [employer] Work Phone: Nursing Noteon 06-25-2025 Nursing Note Patient taken to cat h lab tele monitor removed cleaned and placed in proper location Normal [facility] PHOSPHORUSon 06-25-2025 Phosphate [Mass/Vol] 3.2 mg/dL Normal 2.3-4.7 [facility] Comment on above: Performed By: #### L [id number] #### Lean Manufacturing Leader: FLAKITO ROMAN ([id number]) [facility] ([facility]) [address] [place] [address] [place] Phosphate [Moles/Vol]on Phosphate [Mass/Vol] 3.2 mg/dL 2.3 - 4 .7 mg/dL [facility] Progress Noteon 06-25-2025 Progress Note Checked on pt s/p PCI. Reports feeling well. Denies CP, SOB, MCCRACKEN, vision or speech changes. Right femoral site stable, no bleeding or hematoma. Pulse 2+. EKG stable. VSS. Plan to continue monitoring overnight and likely discharge home tomorrow. Normal [facility] Progress Note Nutrition Assessment Type and Reason for Visit: Initial, Positive Nutrition Screen (MST 3) Nutrition Recommendations/Plan: Suggest diet advancement to goal of ARUNA/Heart Healthy, no caffeine diet AVS to include heart healthy diet education materials Will continue to monitor labs, meds, oral and/or alternate route of nutrition tolerance, skin integrity, fluid status, wt trends, and overall nutrition status - RD to follow weekly. 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 Past Medical and Surgical History: Medical History[1] Surgical History[2] Nutrition Assessment: LOS# 2. 59F w/ PMHx: T2DM, HTN, prior tobacco use, MDD, and anxiety who presented to [facility] and was found to have obstructive CAD w/ acute onset CP. She was t/f to [facility] for evaluation for PCI vs CABG in the setting of prox-LAD and ostial D1 stenoses. She was seen by interventional cardio and CTS and the decision was made to proceed w/ PCI placement. 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 Pt was on a regular, no caffeine diet and has 100% dinner recorded meal yesterday, 06/24. Skin intact. A1c controlled. BS noted. Lipid panel abnl. LVEF 58%. Estimated Daily Nutrient Needs: Energy Requirements Based On: Kcal/kg Weight Used for Energy Requirements: [place] Weight for Energy Calculation (kg): 58 kg Total Energy Requirements (kcals/day): 1136-5990 (25-30 kcals/kg) Weight Used for Protein Requirements: [place] Weight in Kg Used for Protein Requirements: 58 kg Estimated Total Protein (g/day): Estimated Daily Total Fluid (ml/day): 1 ml/kcal or per MD Nutrition Related Findings: Wound Type: None; Silvano Scale Score: 21 Isolation Status: No active isolations Food Allergies: NKFA Teeth: Missing teeth Feeding: Independent Room Service: Selective Edema: None Abdomen Inspection: Soft, Nondistended; Abdominal Tenderness: Soft Bowel Sounds: All quadrants; Last BM Date: 06/24/25 Lives with: Spouse/significant other Orientation Level: Oriented X4 Code Status, Vital Signs, Oxygen Needs, I/Os: Code Status: Full Code Vital Signs: Temp: (!) 35.7 ?C (96.2 ?F); Heart Rate: 77; Resp: 17; BP: 128/66; Temp: (!) 35.7 ?C (96.2 ?F); MAP (mmHg): 87 Oxygen Therapy: None (Room air); SpO2: 97 % Net IO Since Admission: -367.89 mL [06/25/25 1408] Intake/Output Summary (Last 24 hours) at 06/25/2025 140 Last data filed at 06/25/2025 0929 Gross per 24 hour Intake 1330 ml Output 700 ml Net 630 ml Labs/Meds Reviewed: Scheduled Meds[3] Continuous Meds[4] BMP: Recent Labs 06/23/25194906/24/2530706/25/25224 NA 136 136 137 K 3.5 3.5 3.7 CL 105 105 105 CO2 25 28 26 BUN 10 10 16 CREATININE 0.66 0.67 0.66 GLUCOSE 120* 123* 114 CALCIUM 8.4* 8.5* 8.7* MG 1.9 -- 1.9 PHOS 3.1 -- 3.2 HEPATIC: Recent Labs 06/23/25194906/24/2530706/25/25224 AST 113* 101* 89* ALT 46* 43* 48* BILITOT 0.6 0.4 0.4 ALKPHOS 115 120 132 CBC: Recent Labs 06/23/25194906/24/2530706/25/25224 WBC 8.0 7.2 7.7 HGB 11.8 11.7 11.6* HCT 35.4 35.3 34.9* MCV 85.9 86.1 85.5 PLT 124* 132* 127* Lab Results Component Value Date EFBP 58 06/25/2025 Lab Results Component Value Date LDLCALC 155 (H) 06/23/2025 HDL 43 (L) 06/23/2025 CHOL 210 (H) 06/23/2025 TRIG 59 06/23/2025 Lab Results Component Value Date TSH 1.01 06/23/2025 Lab Results Component Value Date HGBA1C 5.7 (H) 06/23/2025 Recent Labs 06/23/25 1922 06/24/25 0755 06/24/25 1106 06/24/25 1645 06/24/25 1938 06/25/25 0727 POCGLU 118* 157* 96 136* 158* 102* Current Nutrition Therapies: NPO diet with enteral medications Current Oral Intake Average Meal Intake: NPO Average Supplements Intake: None Ordered, NPO Anthropometric Measures: Height: 166.4 cm (5' 5.5) Current Body Weight: 68.9 kg (152 lb) Weight Source: Standing Scale (06/25/25) Admission Body Weight: 68 kg (150 lb) (via SS 06/23/25) [place] Body Weight (lbs) (Calculated): 128 lbs [place] Body Weight (Kg) (Calculated): 58 kg BMI (kg/m2) (Calculated): 24.9 Weight Adjustment For: No Adjustment Nutrition Diagnosis: Inadequate oral intake related to cardiac dysfunction as evidenced by NPO or clear liquid status due to medical condition, poor intake prior to admission Nutrition Interventions: Food and/or Nutrient Delivery: Continue NPO Nutrition Education/Counseling: Education initiated (AVS) Coordination of Nutrition Care: Continue to monitor while inpatient Goals: Goals: Init (more content not included)... Normal [facility] TRANSTHORACIC ECHOCARDIOGRAM (TTE) COMPLETEon 06-25-2025 TRANSTHORACIC ECHOCARDIOGRAM (TTE) COMPLETE This is a summary report. The complete report is available in the patient's medical record. If you cannot access the medical record, please contact the sending organization for a detailed fax or copy. ? Left?Ventricle: Left ventricle size is normal. Normal wall thickness. Normal left ventricular systolic function. EF by 2D Simpsons Biplane is 58%. Global longitudinal strain is -18.9%. Normal wall motion. Normal diastolic function. ? Right?Ventricle: Right ventricle size is normal. Normal systolic function. ? Aorta: Normal sized sinuses of Valsalva and ascending aorta. ? Aortic Valve: Not well visualized. Mildly thickened cusps. Mildly calcified cusps. Left and right cusps sclerosis. No regurgitation. No stenosis. ? No significant valvular abnormalities. ? Technically difficult study. Abnormal [facility] US Heart Transthoracicon Aortic Arch 2.4 cm [facility] Aortic Sinus Valsalva 2.9 cm [facility] Aortic Sinus Valsalva Index 1.64 cm/m2 [facility] Aortic valve Mean systole pressure gradient by US.doppler derived full Bernoulli 5 mmHg [facility] Aortic valve Orifice area by US 3.1 cm2 [facility] Aortic valve Peak systolic flow by US.doppler 1 m/s [facility] Ascending Aorta 3.3 cm [facility] Ascending Aorta Index 1.86 cm/m2 [facility] AV Area by Peak Velocity 2.1 cm2 [facility] AV Area by VTI 2.1 cm2 [facility] AV Peak Gradient 8 mmHg [facility] AV Peak Velocity 1.4 m/s [facility] AV Velocity Ratio 0.71 [facility] ealt AV VTI 32.7 cm [facility] SHERIF/BSA Peak Velocity 1.2 cm2/m2 [facility] SHERIF/BSA VTI 1.2 cm2/m2 [facility] E/E' Lateral 6.8 [facility] E/E' Ratio (Averaged) 8.26 [facility] E/E' Septal 9.71 [facility] Fractional Shortening 2D 33 % 28 - 44 % [facility] Global Longitudinal Strain -18.9 % [facility] Interpretation and review of laboratory results Abnormal [facility] IVC Diameter 1.6 cm [facility] IVSd 1 cm Abnormal 0.6 - 0.9 cm [facility] LA Diameter 3.9 cm [facility] LA Size Index 2.2 cm/m2 [facility] LA Volume 2C 45 mL 22 - 52 mL [facility] LA Volume 4C 52 mL 22 - 52 mL [facility] LA Volume A/L 54 mL [facility] LA Volume BP 51 mL 22 - 52 mL [facility] LA Volume Index 2C 25 mL/m2 16 - 34 mL/m2 [facility] LA Volume Index 4C 29 mL/m2 16 - 34 mL/m2 [facility] LA Volume Index A/L 31 mL/m2 16 - 34 mL/m2 [facility] LA Volume Index BP 29 ml/m2 16 - 34 ml/m2 [facility] Left ventricular Ejection fraction by US.2D+Calculated by biplane method of disks 58 % 55 - 100 % [facility] LV E' Lateral Velocity 10 cm/s [facility] LV E' Septal Velocity 7 cm/s [facility] LV Ejection Fraction A2C 59 % [facility] LV Ejection Fraction A4C 56 % [facility] LV Mass 2D 164.3 g Abnormal 67 - 162 g [facility] LV Mass 2D Index 92.8 g/m2 43 - 95 g/m2 [facility] LV RWT Ratio 0.37 [facility] LVIDd 4.9 cm 3.9 - 5.3 cm [facility] LVIDd Index 2.77 cm/m2 [facility] LVIDs 3.3 cm [facility] LVIDs Index 1.86 cm/m2 [facility] LVOT Cardiac Output 4.5 liter/minute [facility] LVOT Diameter 2 cm [facility] h LVOT Mean Gradient 2 mmHg [facility] LVOT Peak Gradient 4 mmHg [facility] LVOT Peak Velocity 1 m/s [facility] LVOT Stroke Volume Index 38.5 mL/m2 [facility] LVOT SV 68.1 ml [facility] LVOT VTI 21.7 cm [facility] LVOT:AV VTI Index 0.66 [facility] ealth LVPWd 0.9 cm 0.6 - 0.9 cm [facility] MV A Velocity 0.68 m/s [facility] h MV E Velocity 0.68 m/s [facility] MV E Wave Deceleration Time 206.2 ms [facility] [facility] MV E/A 1 [facility] Pulm Vein Peak D Velocity 0.4 m/s [facility] Pulm Vein Peak S Velocity 0.6 m/s [facility] PV Mean Gradient 2 mmHg [facility] alth PV Mean Velocity 0.7 m/s [facility] PV Peak Gradient 4 mmHg [facility] alth RA Area 4C 14.7 cm2 [facility] RV Basal Dimension 3.5 cm [facility] RV Free Wall Peak S' 14 cm/s [facility] RV Longitudinal Dimension 6.4 cm [facility] RV Mid Dimension 2.6 cm [facility] alth Sinotubular Junction 2.2 cm [facility] TAPSE 2.1 cm 1.7 cm [facility] Left Ventricle: Left ventricle size is normal. Normal wall thickness. Normal left ventricular systolic function. EF by 2D Simpsons Biplane is 58%. Global longitudinal strain is -18.9%. Normal wall motion. Normal diastolic function. Right Ventricle: Right ventricle size is normal. Normal systolic function. Aorta: Normal sized sinuses of Valsalva and ascending aorta. Aortic Valve: Not well visualized. Mildly thickened cusps. Mildly calcified cusps. Left and right cusps sclerosis. No regurgitation. No stenosis. No significant valvular abnormalities. Technically difficult study. Left Ventricle Left ventricle size is normal. Normal wall thickness. Normal left ventricular systolic function. EF by 2D Simpsons Biplane is 58%. Global longitudinal strain is -18.9%. Normal wall motion. Normal diastolic function. Right Ventricle Right ventricle size is normal. Normal systolic function. Left Atrium Left atrium size is normal. Left atrium size is normal (LA volume index 16-34 mL/m2). Right Atrium Right atrium size is normal. IVC/SVC IVC diameter is normal and decreases greater than 50% during inspiration; therefore the estimated right atrial pressure is normal (~3 mmHg). Mitral Valve Valve structure is normal. Trace regurgitation. No stenosis noted. Tricuspid Valve Valve structure is normal. Trace regurgitation. No stenosis noted. Unable to assess RVSP due to insignificant tricuspid regurgitation. Aortic Valve Not well visualized. Mildly thickened cusps. Mildly calcified cusps. Left and right cusps sclerosis. No regurgitation. No stenosis. Pulmonic Valve Valve structure is normal. Trace regurgitation. Ascending Aorta Normal sized sinuses of Valsalva and ascending aorta. Pericardium No pericardial effusion. Septum No interatrial shunt visualized on color Doppler. Pulmonary Artery Normal pulmonary arteries. Study Details Image quality: adequate. Additional technique includes myocardial strain. Heart rate: 70 bpm. Blood pressure: 124/66 mmHg. The underlying ECG rhythm was sinus rhythm. No contrast was given. Echo Additional Conclusions No significant valvular abnormalities.Technic ally difficult study. Wall Scoring Baseline Score Index: 1.00 The left ventricular wall motion is normal. CV CPACS [facility] Vital signson 06-25-2025 Heart rate 66 /min bpm [facility] Vital signsOrdered By: Bi Mejia on 06-25-2025 Heart rate 92 /min bpm [facility] Work Phone: aPTT Coag (Bld) [Time]on aPTT Coag (PPP) [Time] 50.7 s High 20.0 - 30.5 s [facility] Interpretation and review of laboratory results Abnormal [facility] NOTE: The therapeuti c time for Heparin anticoagulation, based on Xa activity inhibition, is an APTT of 46-80 seconds. [facility] aPTT Coag (PPP) [Time] 58.4 s High 20.0 - 30.5 s [facility] Interpretation and review of laboratory results Abnormal [facility] NOTE: The therapeuti c time for Heparin anticoagulation, based on Xa activity inhibition, is an APTT of 46-80 seconds. [facility] APTTon 06-24-2025 aPTT Coag (Bld) [Time] 49.3 s High 20.0-30.5 [facility] Comment on above: Result Comment: CAMERONE R COMMENTS: NOTE: The therapeutic time for Heparin anticoagulation, based on Xa activity inhibition, is an APTT of 46-80 seconds. Performed By: #### L [id number] #### [employer] Leader: FLAKITO ROMAN ([phone]) [facility] ([facility]) [address] [place] [address] aPTT Coag (Bld) [Time] 48.1 s High 20.0-30.5 [facility] Comment on above: Result Comment: EDITH R COMMENTS: NOTE: The therapeutic time for Heparin anticoagulation, based on Xa activity inhibition, is an APTT of 46-80 seconds. Performed By: #### L [id number] ####[employer] Manufacturing Leader: FLAKITO ROMAN ([phone])[facility] ([facility])[address] [place] [address] aPTT Coag (Bld) [Time] 41.5 s High 20.0-30.5 [facility] Comment on above: Result Comment: EDITH R COMMENTS: NOTE: The therapeutic time for Heparin anticoagulation, based on Xa activity inhibition, is an APTT of 46-80 seconds. Performed By: #### L [id number] #### [employer] Leader: FLAKITO ROMAN ([id number]) [facility] ([facility]) [address] [place] [address] Basic Metabolic Profile (BMP )on 06-24-2025 BUN Normal 4-19 [facility] Comment on above: Result Comment: Canc elled via OM: Order cancelled - Patient discharged Performed By: #### L 500.2500, L100.0100 #### [facility] [address] [place], [address] BUN/CRE Normal 10-20 [facility] Comment on above: Result Comment: Canc elled via OM: Order cancelled - Patient discharged Performed By: #### L 500.2500, L100.0100 #### [facility] [address] [place], [address] Calcium Normal 7.6-11.0 [facility] Comment on above: Result Comment: Canc elled via OM: Order cancelled - Patient discharged Performed By: #### L 500.2500, L100.0100 #### [facility] [address] [place], [address] CL Normal 98-108 [facility] Comment on above: Result Comment: Canc elled via OM: Order cancelled - Patient discharged Performed By: #### L 500.2500, L100.0100 #### [facility] [address] [place], [address] CO2 Normal 21.0-32.0 [facility] Comment on above: Result Comment: Canc elled via OM: Order cancelled - Patient discharged Performed By: #### L 500.2500, L100.0100 #### [facility] [address] [place], [address] CREAT,SERUM Normal 0.70-1.20 [facility] Comment on above: Result Comment: Canc elled via OM: Order cancelled - Patient discharged Performed By: #### L 500.2500, L100.0100 #### [facility] [address] [place], [address] eGFR Normal >60 [facility] Comment on above: Result Comment: Canc elled via OM: Order cancelled - Patient discharged Performed By: #### L 500.2500, L100.0100 #### [facility] [address] [place], [address] GAP Normal 5-15 [facility] Comment on above: Result Comment: Canc elled via OM: Order cancelled - Patient discharged Performed By: #### L 500.2500, L100.0100 #### [facility] [address] [place], [address] GLU Normal 70-99 [facility] Comment on above: Result Comment: Canc elled via OM: Order cancelled - Patient discharged Performed By: #### L 500.2500, L100.0100 #### [facility] [address] [place], [address] Potassium Normal 3.3-5.1 [facility] Comment on above: Result Comment: Canc elled via OM: Order cancelled - Patient discharged Performed By: #### L 500.2500, L100.0100 #### [facility] [address] [place], [address] Basic Metabolic Profile (BMP) Normal 133-145 [facility] Comment on above: Result Comment: Canc elled via OM: Order cancelled - Patient discharged Performed By: #### L 500.2500, L100.0100 #### [facility] [address] [place], [address] CBC W Auto Differential pane l (Bld)on 06-24-2025 Basophils (Bld) [#/Vol] 0 10*3/uL 0.0 - 0.2 10*3/uL [facility] Basophils/100 WBC (Bld) 0.6 % 0.0 - 2.0 % [facility] Eosinophils (Bld) [#/Vol] 0.3 10*3/uL 0.0 - 0.5 10*3/uL [facility] Eosinophils/100 WBC (Bld) 3.9 % 0.0 - 6.0 % [facility] Erythrocyte distribution width (RBC) [Ratio] 12.9 % 11.5 - 15.0 % [facility] Hematocrit (Bld) [Volume fraction] 35.3 % 35.0 - 47.0 % [facility] Hemoglobin (Bld) [Mass/Vol] 11.7 g/dL 11.7 - 16.0 g/dL [facility] Immature granulocytes (Bld) [#/Vol] 0 10*3/uL NINF - 0.1 10*3/uL [facility] Immature granulocytes/100 WBC (Bld) 0.3 % 0.0 - 2.0 % [facility] Interpretation and review of laboratory results Abnormal [facility] IPF 5 [facility] Lymphocytes (Bld) [#/Vol] 1.8 10*3/uL 1.0 - 4.3 10*3/uL [facility] Lymphocytes/100 WBC (Bld) 25.2 % 15.0 - 45.0 % [facility] MCH (RBC) [Entitic mass] 28.5 pg 26.0 - 34.0 pg [facility] MCHC (RBC) [Mass/Vol] 33.1 % 30.5 - 36.0 % [facility] MCV (RBC) [Entitic vol] 86.1 fL 77.0 - 99.0 fL [facility] Monocytes (Bld) [#/Vol] 0.7 10*3/uL 0.0 - 0.9 10*3/uL [facility] Monocytes/100 WBC (Bld) 9.6 % 5.0 - 13.0 % [facility] Neutrophils (Bld) [#/Vol] 4.4 10*3/uL 1.8 - 7.5 10*3/uL [facility] Neutrophils/100 WBC (Bld) 60.4 % 38.0 - 82.0 % [facility] Nucleated RBC/100 WBC (Bld) [Ratio] 0 % [facility] Platelet mean volume (Bld) [Entitic vol] 11.1 fL 9.0 - 12.7 fL [facility] Platelets (Bld) [#/Vol] 132 10*3/uL Low 140 - 440 10*3/uL [facility] RBC (Bld) [#/Vol] 4.1 10*6/uL 3.80 - 5.2 0 10*6/uL [facility] WBC (Bld) [#/Vol] 7.2 10*3/uL 3.6 - 10.7 10*3/uL [facility] CBC W/Diff, Automatedon 11-0 Absolute Neut Normal 2.0-7.7 [facility] Comment on above: Result Comment: Canc elled via OM: Order cancelled - Patient discharged Performed By: #### L 500.2500, L100.0100 #### [facility] [address] [place], [address] HCT Normal 37-47 [facility] Comment on above: Result Comment: Canc elled via OM: Order cancelled - Patient discharged Performed By: #### L 500.2500, L100.0100 #### [facility] [address] [place], [address] HGB Normal 12.0-15.0 [facility] Comment on above: Result Comment: Canc elled via OM: Order cancelled - Patient discharged Performed By: #### L 500.2500, L100.0100 #### [facility] [address] [place], [address] MCH Normal 27.0-32.0 [facility] Comment on above: Result Comment: Canc elled via OM: Order cancelled - Patient discharged Performed By: #### L 500.2500, L100.0100 #### [facility] [address] [place], [address] MCHC Normal 32-36 [facility] Comment on above: Result Comment: Canc elled via OM: Order cancelled - Patient discharged Performed By: #### L 500.2500, L100.0100 #### [facility] [address] [place], [address] MCV Normal 81-99 [facility] Comment on above: Result Comment: Canc elled via OM: Order cancelled - Patient discharged Performed By: #### L 500.2500, L100.0100 #### [facility] [address] [place], [address] NEUT% Normal 47-70 [facility] Comment on above: Result Comment: Canc elled via OM: Order cancelled - Patient discharged Performed By: #### L 500.2500, L100.0100 #### [facility] [address] [place], [address] PLT Normal 150-450 [facility] Comment on above: Result Comment: Canc elled via OM: Order cancelled - Patient discharged Performed By: #### L 500.2500, L100.0100 #### [facility] [address] [place], [address] RBC Normal 4.2-5.4 [facility] Comment on above: Result Comment: Canc elled via OM: Order cancelled - Patient discharged Performed By: #### L 500.2500, L100.0100 #### [facility] [address] [place], [address] RDW CV Normal 11.6-14.6 [facility] Comment on above: Result Comment: Canc elled via OM: Order cancelled - Patient discharged Performed By: #### L 500.2500, L100.0100 #### [facility] [address] [place], [address] RDW SD Normal 35.1-43.9 [facility] Comment on above: Result Comment: Canc elled via OM: Order cancelled - Patient discharged Performed By: #### L 500.2500, L100.0100 #### [facility] [address] [place], [address] WBC Normal 4.4-11.0 [facility] Comment on above: Result Comment: Canc elled via OM: Order cancelled - Patient discharged Performed By: #### L 500.2500, L100.0100 #### [facility] [address] [place], [address] CBC WITH AUTO DIFFERENTIALon 06-24-2025 Basophils (Bld) [#/Vol] 0.0 10*3/uL Normal 0.0-0.2 [facility] Comment on above: Performed By: #### L [id number] ####[employer] Leader: FLAKITO ROMAN ([id number])[facility])[address] [place] [address] Basophils/100 WBC (Bld) 0.6 % Normal 0.0-2.0 [facility] Comment on above: Performed By: #### L [id number] ####[employer] Leader: FLAKITO ROMAN ([id number])[facility])[address] [place] [address] Eosinophils (Bld) [#/Vol] 0.3 10*3/uL Normal 0.0-0.5 [facility] Comment on above: Performed By: #### L [id number] ####[employer] Leader: FLAKITO ROMAN ([id number])[address] Eosinophils/100 WBC (Bld) 3.9 % Normal 0.0-6.0 [facility] Comment on above: Performed By: #### L [id number] ####[employer] Leader: FLAKITO ROMAN ([id number])[address] Erythrocyte distribution width (RBC) [Ratio] 12.9 % Normal 11.5-15.0 [facility] Comment on above: Performed By: #### L [id number] ####[employer] Leader: FLAKITO ROMAN ([id number])[address] Hematocrit (Bld) [Volume fraction] 35.3 % Normal 35.0-47.0 [facility] Comment on above: Performed By: #### L [id number] ####[employer] Leader: FLAKITO ROMAN ([id number])[address] Hemoglobin (Bld) [Mass/Vol] 11.7 g/dL Normal 11.7-16.0 [facility] Comment on above: Performed By: #### L [id number] ####[employer] Leader: FLAKITO ROMAN ([phone])[facility])[address] [place] [address] IMMATURE GRANS % 0.3 % Normal 0.0-2.0 [facility] Comment on above: Performed By: #### L [id number] ####[employer] Leader: FLAKITO ROMAN ([id number])[facility])[address] [place] [address] IMMATURE GRANS ABSOLUTE 0.0 10*3/uL Normal <0.1 [facility] Comment on above: Performed By: #### L [id number] ####[employer] Leader: FLAKITO ROMAN ([id number])[address] IPF 5 Normal [facility] Comment on above: Performed By: #### L [id number] ####[employer] Leader: FLAKITO ROMAN ([id number])[facility])[address] [place] [address] Lymphocytes (Bld) [#/Vol] 1.8 10*3/uL Normal 1.0-4.3 [facility] Comment on above: Performed By: #### L [id number] ####[employer] Leader: FLAKITO ROMAN ([id number])[facility])[address] [place] [address] Lymphocytes/100 WBC (Bld) 25.2 % Normal 15.0-45.0 [facility] Comment on above: Performed By: #### L [id number] ####[employer] Leader: FLAKITO ROMAN ([id number])[facility])[address] [place] [address] MCH (RBC) [Entitic mass] 28.5 pg Normal 26.0-34.0 [facility] Comment on above: Performed By: #### L [id number] ####[employer] Leader: FLAKITO ROMAN ([id number])[facility])[address] [place] [address] MCHC 33.1 % Normal 30.5-36.0 [facility] Comment on above: Performed By: #### L [id number] ####[employer] Leader: FLAKITO ROMAN ([id number])[facility] ([facility])[address] [place] [address] MCV (RBC) [Entitic vol] 86.1 fL Normal 77.0-99.0 [facility] Comment on above: Performed By: #### L [id number] ####[employer] Leader: FLAKITO ROMAN ([id number])[facility] ([facility])[address] [place] [address] Monocytes (Bld) [#/Vol] 0.7 10*3/uL Normal 0.0-0.9 [facility] Comment on above: Performed By: #### L [id number] ####[employer] Leader: FLAKITO ROMAN ([id number])[facility] ([facility])[address] [place] [address] Monocytes/100 WBC (Bld) 9.6 % Normal 5.0-13.0 [facility] Comment on above: Performed By: #### L [id number] ####[employer] Leader: FLAKITO ROMAN ([id number])[facility])[address] [place] [address] NEUTROPHILS ABSOLUTE 4.4 10*3/uL Normal 1.8-7.5 [facility] Comment on above: Performed By: #### L [id number] ####[employer] Leader: FLAKITO ROMAN ([id number])[facility])[address] [place] [address] Neutrophils/100 WBC (Bld) 60.4 % Normal 38.0-82.0 [facility] Comment on above: Performed By: #### L [id number] ####[employer] Leader: FLAKITO ROMAN ([id number])[facility])[address] [place] [address] NRBC 0.0 /100 WBCs Normal 0.0-2.0 [facility] Comment on above: Performed By: #### L [id number] ####[employer] Leader: FLAKITO ROMAN ([id number])[facility])[address] [place] [address] Platelet mean volume (Bld) [Entitic vol] 11.1 fL Normal 9.0-12.7 [facility] Comment on above: Performed By: #### L [id number] ####[employer] Leader: FLAKITO ROMAN ([id number])[facility])[address] [place] [address] Platelets (Bld) [#/Vol] 132 10*3/uL Low 140-440 [facility] Comment on above: Performed By: #### L [id number] ####[employer] Leader: FLAIKTO ROMAN ([id number])[facility] ([facility])[address] [place] [address] RBC (Bld) [#/Vol] 4.10 10*6/uL Normal 3.80-5.20 [facility] Comment on above: Performed By: #### L [id number] ####[employer] Leader: FLAKITO ROMAN ([id number])[facility])[address] [place] [address] WBC (Bld) [#/Vol] 7.2 10*3/uL Normal 3.6-10.7 [facility] Comment on above: Performed By: #### L [id number] ####[employer] Leader: FLAKITO ROMAN ([phone])[facility])[address] [place] [address] COMPREHENSIVE METABOLIC PANE José Miguel 06-24-2025 Albumin [Mass/Vol] 3.0 g/dL Low 3.1-4.5 [facility] Comment on above: Performed By: #### L [id number] ####[employer] Leader: FLAKITO ROMAN ([id number])[facility])[address] [place] [address] ALP [Catalytic activity/Vol] 120 U/L Normal 40-150 [facility] Comment on above: Performed By: #### L [id number] ####[employer] Leader: FLAKITO ROMAN ([id number])[facility] [place] [address] [place] ALT [Catalytic activity/Vol] 43 U/L High <30 [facility] Comment on above: Performed By: #### L [id number] ####[employer] Leader: FLAKITO ROMAN ([id number])[facility] [place] [address] Anion gap [Moles/Vol] 3 mmol/L Normal 3-13 [facility] Comment on above: Performed By: #### L [id number] ####[employer] Leader: FLAKITO ROMAN ([id number])[facility] ([facility])[address] [place] [address] AST [Catalytic activity/Vol] 101 U/L High <34 [facility] Comment on above: Performed By: #### L [id number] ####[employer] Leader: FLAKITO ROMAN ([id number])[facility] ([facility])[address] [place] [address] Bilirubin [Mass/Vol] 0.4 mg/dL Normal <1.[address] [facility] Comment on above: Performed By: #### L [id number] ####[employer] Leader: FLAKITO ROMAN ([id number])[facility] ([facility])[address] [place] [address] Calcium [Mass/Vol] 8.5 mg/dL Low 8.8-10.0 [facility] Comment on above: Performed By: #### L [id number] ####[employer] Leader: FLAKITO ROMAN ([id number])[facility] ([facility])[address] [place] [address] [place] Chloride [Moles/Vol] 105 mmol/L Normal 98-107 [facility] Comment on above: Performed By: #### L [id number] ####[employer] Leader: FLAKITO ROMAN ([id number])[facility] ([facility])[address] [place] [address] [place] CO2 [Moles/Vol] 28 mmol/L Normal 23-31 [facility] Comment on above: Performed By: #### L [id number] ####[employer] Leader: FLAKITO ROMAN ([id number])[facility] ([facility])[address] [place] [address] Creatinine [Mass/Vol] 0.67 mg/dL Normal 0.58-1.12 [facility] Comment on above: Performed By: #### L [id number] ####[employer] Leader: FLAKITO ROMAN ([id number])[facility])[address] [place] [address] GLOMERULAR FILTRATION RATE ML/MIN/1.73 SQ M.PREDICTED >90.0 Normal >60.0 [facility] Comment on above: Result Comment: Calc ulation based on the Chronic Kidney Disease Epidemiology Collaboration (CKD-EPI) equation refit without adjustment for race Performed By: #### L [id number] ####[employer] Leader: FLAKITO ROMAN ([id number])[facility] ([facility])[address] [place] [address] Glucose [Mass/Vol] 123 mg/dL High 82-115 [facility] Comment on above: Performed By: #### L [id number] ####[employer] Leader: FLAKITO ROMAN ([phone])[facility])[address] [place] [address] Potassium [Moles/Vol] 3.5 mmol/L Normal 3.5-5.1 [facility] Comment on above: Result Comment: [facility] potassium values may be up to 0.5 mmol/L lower than serum values. Performed By: #### L [id number] ####[employer] Leader: FLAKITO ROMAN ([id number])[facility] ([facility])[address] [place] [address] Protein [Mass/Vol] 6.3 g/dL Low 6.4-8.3 [facility] Comment on above: Performed By: #### L [id number] ####[employer] Leader: FLAKITO ROMAN ([id number])[facility] ([facility])[address] [place] [address] Sodium [Moles/Vol] 136 mmol/L Normal 136-145 [facility] Comment on above: Performed By: #### L [id number] ####[employer] Leader: FLAKITO ROMAN ([id number])[facility] ([facility])[address] [place] [address] Urea nitrogen [Mass/Vol] 10 mg/dL Normal 9- [facility] Comment on above: Performed By: #### L [id number] ####[employer] Leader: FLAKITO ROMAN ([id number])[facility] ([facility])[address] [place] [address] Comprehensive metabolic 1998 panelon 06-24-2025 Albumin [Mass/Vol] 3 g/dL Low 3.1 - 4.5 g/dL [facility] ALP [Catalytic activity/Vol] 120 U/L 40 - 150 U/L [facility] ALT [Catalytic activity/Vol] 43 U/L High NINF - 30 U/L [facility] Anion gap [Moles/Vol] 3 mmol/L 3 - 13 mmol/L [facility] AST [Catalytic activity/Vol] 101 U/L [facility]L [facility] Bilirubin [Mass/Vol] 0.4 mg/dL NINF - 1.2 mg/dL [facility] Calcium [Mass/Vol] 8.5 mg/dL Low 8.8 - 10. 0 mg/dL [facility] Chloride [Moles/Vol] 105 mmol/L 98 - 10 7 mmol/L [facility] CO2 [Moles/Vol] 28 mmol/L 23 - 31 mmol/L [facility] Creatinine [Mass/Vol] 0.67 mg/dL 0.58 - 1.12 mg/dL [facility] GFR/1.73 sq M.predicted (S/P/Bld) [Vol rate/Area] - PINF [facility] Comment on above: Calculation based on the Chronic Kidney Disease Epidemiology Collaboration (CKD-EPI) equation refit without adjustment for race Glucose [Mass/Vol] 123 mg/dL High 82 - 115 mg/dL [facility] Interpretation and review of laboratory results Abnormal [facility] Potassium [Moles/Vol] 3.5 mmol/L 3.5 - 5.1 mmol/L [facility] Comment on above: Plasma potassium nichelle ues may be up to 0.5 mmol/L lower than serum values. Protein [Mass/Vol] 6.3 g/dL Low 6.4 - 8.3 g/dL [facility] Sodium [Moles/Vol] 136 mmol/L 136 - 145 mmol/L [facility] Urea nitrogen [Mass/Vol] 10 mg/dL 9 - 23 mg/dL [facility] Consulton 06-24-2025 Consult - Attestation signed by Anthony Cullen MD at 06/25/2025 2:04 PM DOS: 06/24/2025 I personally performed a obip-zf-iqkh diagnostic evaluation on this patient I agree with the findings and plan of care as documented by the RUSSEL or resident. There has been no change in the physical exam or findings unless otherwise noted below. A total of 60 minutes were spent between the ozdt-uh-qhsf encounter, physical exam, reviewing the medical history, coordinating the patient's care, counseling/educating the patient, ordering medications/test/proc edures, interpreting results and documenting clinical information in the patients electronic health record on the day of the encounter. The patient was seen and examined independently and relevant data reviewed by myself. A full chart review was performed. This is a 59-year-old patient who was found to have an elevated troponin, non-ST segment elevation UT who underwent left heart catheter demonstrated in LAD/diagonal 1 stenosis. She was transferred for further evaluation. While surgery remains an option, she has chosen to proceed with PCI/stent. We discussed the benefits and durability of left internal mammary artery grafting to the LAD. Patient is a [employer] and would like to minimize the potential chance for blood transfusions. I did assure her that surgery could potentially be possible in the future, if it was required. No surgical intervention is planned. Patient wishes to pursue PCI/stenting. [facility]: Cardiothoracic Surgery Consultation Note PATIENT NAME: Theresa Marx : 1965 (59 y.o.) TODAY'S DATE: 06/24/2025 DATE OF ADMISSION: 06/23/2025 6:30 PM Reason for Consult: CAD Consulting Provider: Dr. Chase Subjective: CC: chest pain HPI: 59 yo female with PMH of HPL, T2DM, former tobacco use, anxiety, fibromyalgia. She initially presented to [facility] with acute onset chest pain. Admitted for NSTEMI with troponin rise, no significant ischemic changes on EKG. Underwent a LHC that showed multivessel CAD involving prox LAD at bifurcation of large Diag1. Per chart review she aso had TTE that showed normal LV size, LVEF 55%, no significant valve disease. She was transferred to [facility] on 06/23 for heart team approach. Patient lives in [place] with her but is currently visiting her daughters in [place]. She is typically active at baseline and is currently helping her daughter renovate a house. She denies prior cardiac history. Is a former smoker, quit many years ago, denies ETOH or drug use. 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 Review of Systems Constitutional: Negative for activity change, appetite change, diaphoresis, fatigue and fever. Respiratory: Negative for cough, shortness of breath and wheezing. Cardiovascular: Negative for chest pain, palpitations and leg swelling. Gastrointestinal: Negative for abdominal distention, abdominal pain, blood in stool, nausea and vomiting. Genitourinary: Negative for dysuria and hematuria. Skin: Negative for color change, pallor and rash. Allergies: Patient has no known allergies. Past Medical History: has no past medical history on file. Past Surgical History: has a past surgical history that includes Hysterectomy; Bladder repair; and removal gallbladder (historical). Social History: reports that she has never smoked. She has never used smokeless tobacco. She reports that she does not drink alcohol and does not use drugs. Family History: family history is not on file. Medications: Prior to Admission medications Medication Sig Start Date End Date Taking? Authorizing Provider buPROPion XL (Wellbutrin XL) 150 MG 24 hr tablet Take 150 mg by mouth daily. Do not crush, chew, or split. Yes Historical Provider, pioglitazone (Actos) 15 MG tablet Take 15 mg by mouth daily. Yes Historical Provider, Semaglutide (OZEMPIC, 1 MG/DOSE, SC) Inject under the skin. Yes Historical Provider, venlafaxine XR (Effexor XR) 75 MG 24 hr capsule Take 75 mg by mouth daily. Do not crush or chew. Yes Historical Provider, Objective: Vitals: BP: 127/75, MAP (mmHg): 92, Heart Rate: 74 Resp: 16 Temp: 36.6 ?C (97.9 ?F), Temp Source: Temporal Intake/Output Summary (Last 24 hours) at 06/24/2025 1108 Last data filed at 06/24/2025 1106 Gross per 24 hour Intake 1502.11 ml Output 2500 ml Net -997.89 ml Physical Exam Constitutional: General: She is not in acute distress. Appearance: Normal appearance. Cardiovascular: Rate and Rhythm: Normal rate and regular rhythm. Pulses: Normal pulses. Heart sounds: Normal heart sounds. No murmur heard. No friction rub. Pulmonary: Effort: Pulmonary effort is normal. Breath sounds: Normal breath sounds. (more content not included)... Normal [facility] Consult [facility] [place] Inter[facility] Cardiology Consult Note Reason for Consult/Chief Complaint: Obstructive focal LAD bifurcation lesion on LHC at OSH, evaluate for options PCI vs CABG Referring provider: Dr. Hendricks Established switch cleaner: None History of Present Illness: Theresa Marx is a 59 y.o. female with a history of slg-gwqgyfh-zyxvjzueb diabetes mellitus, HTN, prior tobacco use, anxiety was admitted to [place] with NSTEMI and acute chest pain on Wednesday. She underwent a left heart cath at [place] (angiographic films in PACS), films were personally reviewed showing severe focal stenosis of the proximal LAD at bifurcation with large first diagonal. Ostial diagonal is large caliber vessel with focal moderate to severe lesion. LAD has ENEDINA 2-3 flow. No other significant disease in dominant RCA, LCX is small caliber vessel with mild diffuse disease. LV gram showed normal LVEF ~65-70% with no wall motion abnormalities in anterior, anterolateral and inferior parsons. She is transferred to [facility] for evaluation for heart team approach for PCI versus CABG. EKG shows sinus rhythm with left bundle branch block. She is hemodynamically stable, chest pain-free on heparin drip. She has no complaints. Labs reviewed normal renal function, mildly abnormal LFTs. LDL of 155, A1c of 5.7. 59F. CRF + DM2, HTN. Remote smoker. HPI: Presented w 36 hrs CP w minimal exertion. No prior CV Hx. Cath = Prox LAD and ostial D1 stenoses. (?Possible separate ostium LCF vs very small LCF system). Normal RCA. Normal LV function on LVgram. Transferred to [facility] from [facility] for Team Approach to care. Assessment/Plan HF NYHA Class [] I [x] II [] III [] IV []Unable to assess NSTEMI with obstructive single vessel CAD: Risk factors: Prior smoker, HTN, NIDDM. Underwent diagnostic angiogram at [place]. Angiographic films in PACS, were personally reviewed showing severe focal stenosis of the proximal LAD at bifurcation with large first diagonal. Ostial diagonal is large caliber vessel with focal moderate to severe lesion. LAD has NEEDINA 2-3 flow. No other significant disease in dominant RCA, LCX is small caliber vessel with mild diffuse disease. LV gram showed normal LVEF ~65-70% with no wall motion abnormalities in anterior, anterolateral and inferior parsons. Her Syntax score is low. A1c is 5.7. Both options of CABG and PCI were discussed with patient. Patient LAD lesion is amicable to PCI which was offered. Risks and benefits of PCI were discussed including risk of future ISR needing repeat revascularization. Plan for CTS to evaluate the patient today and pending final decision by patient. Primary team informed. Continue Heparin ggt for 24hrs. If patient choose to proceed with PCI, start on brilinta load 180mg followed by 90mg BID. Continue aspirin and high intensity statin. Thanks for involving us in patient care. I have reviewed the cath films. The bifurcation lesion LAD-D is approachable percutaneously. Single vessel CAD in a diabetic with prox LAD. Low SYNTAX score and good LV function. Equivalence as far as longevity with CABG v PCI. CABG would result in less chance of another procedure. Higher risk of ISR and repeat PCI with intervention. Intervention would result in shorter hospital stay and quicker return to activities. Patient to meet with CTS and decide on course of treatment. Medications: [Scheduled Meds] [Scheduled Meds] aspirin, 81 mg, Oral, Daily buPROPion XL, 150 mg, Oral, Daily heparin, 4,000 Units, IntraVENous, Once influenza, 0.5 mL, IntraMUSCular, Once insulin lispro, 0-12 Units, SubCUTAneous, TID WC And insulin lispro, 0-12 Units, SubCUTAneous, Nightly metoprolol succinate XL, 25 mg, Oral, Daily rosuvastatin, 40 mg, Oral, Daily sodium chloride 0.9%, 5-40 mL, IntraVENous, q12h venlafaxine XR, 75 mg, Oral, Daily Infusion Medications: [Continuous Meds] [Continuous Meds] heparin, 5-30 Units/kg/hr, Last Rate: 8 Units/kg/hr (06/24/25 0705) Physical Examination: Vitals: 06/23/25 2240 06/24/25 0219 06/24/25 0242 06/24/25 0749 BP: 138/73 143/78 121/67 BP Location: Right arm Left arm Left arm Patient Position: Lying Lying Lying Pulse: 80 87 86 Resp: 16 16 16 Temp: 37.1 ?C (98.7 ?F) 36.8 ?C (98.3 ?F) 36.4 ?C (97.5 ?F) TempSrc: Temporal Temporal Temporal SpO2: 97% 95% 97% Weight: 151 lb 6.4 oz (68.7 kg) Intake/Output Summary (Last 24 hours) at 06/24/2025 0816 Last data filed at 06/24/2025 0749 Gross per 24 hour Intake 1502.11 ml Output 2100 ml Net -597.89 ml Wt Readings from Last 3 Encounters: 06/24/25 151 lb 6.4 oz (68.7 kg) Physical Exam Constitutional: General: She is not in acute distress. Appearance: Normal appearance. She is not ill-appearing. HENT: Mouth/Throat: Mouth: Mucous membranes are moist. Cardiovascular: Rate and Rhythm: Normal rate and regular rhythm. Pulses: Normal pulses. Heart sounds (more content not included)... Normal [facility] ECG 12-LEADon 06-24-2025 ECG 12-LEAD IMPRESSION: Sinus rhythm Left bundle branch block Electronically Signed On 06-24-2025 08:20:37 EST by Ronny Cruz [facility] Laboratory - Chemistry and C hemistry - challengeon 06-24-2025 Glucose [Mass/Vol] 158 mg/dL High 70 - 100 mg/dL [facility] Glucose [Mass/Vol] 136 mg/dL High 70 - 100 mg/dL [facility] Glucose [Mass/Vol] 96 mg/dL 70 - 100 mg/dL [facility] Glucose [Mass/Vol] 157 mg/dL High 70 - 100 mg/dL [facility] No Panel Informationon 06-24 Interpretation and review of laboratory results Abnormal [facility] Performed by: [address] [address] CLIA ID: [id number] [facility] Interpretation and review of laboratory results Abnormal [facility] Performed by: [address] [address] CLIA ID: [id number] [facility] Interpretation and review of laboratory results Normal [facility] Performed by: [address] [address] CLIA ID: [id number] [facility] P [place] 51 degrees [facility] [place] Interval 151 ms [facility] QRS [place] 25 degrees [facility] QRSD Interval 140 ms [facility] QT Interval 424 ms [facility] QTC Interval 484 ms [facility] T Wave [place] 122 degrees [facility] Sinus rhythm Left bundle branch block Electronically Signed On 06-24-2025 08:20:37 EST by Ronny Chase CV Ronny Black MD - 06/24/2025 IMPRESSION: Sinus rhythm Left bundle branch block Electronically Signed On 06-24-2025 08:20:37 EST by Ronny Chase [facility] Interpretation and review of laboratory results Abnormal [facility] Performed by: [address] [address] CLIA ID: [id number] [facility] Nursing Noteon 06-24-2025 Nursing Note Pt's aptt drawn at 3 am due to time change Normal [facility] Vital signson 06-24-2025 Heart rate 78 /min bpm [facility] XR CHEST 1 VIEWon 06-24-2025 XR CHEST 1 VIEW Patient Name: THERESA MARX : 1965 Exam Date/Time: 06/24/2025 08:49 Procedure: XR CHEST 1 VIEW Ordering Provider: HENRY BRENDAN Reason For Exam: Shortness of breath EXAM: XR Chest, 1 View CLINICAL INDICATION: Shortness of breath TECHNIQUE: Frontal view of the chest. COMPARISON: No relevant prior studies available. FINDINGS: LUNGS AND PLEURAL SPACES: Unremarkable. No consolidation. No pneumothorax. HEART: Unremarkable. No cardiomegaly. MEDIASTINUM: Unremarkable. Normal mediastinal contour. BONES/JOINTS: Mild degenerative change of the spine. No acute fracture. IMPRESSION: No acute cardiopulmonary abnormality. Report Dictated on Electronically Signed By: Julia Cooper MD Electronically Signed Date/Time: 06/24/2025 9:02 AM [facility] XR Chest Single viewon 06-24 No acute cardiopulmonary abnormality. Report Dictated on Electronically Signed By: Julia Cooper MD Electronically Signed Date/Time: 06/24/2025 9:02 AM [facility] Patient Name: THERESA MARX : 1965 Exam Date/Time: 06/24/2025 08:49 Procedure: XR CHEST 1 VIEW Ordering Provider: HENRY BRENDAN Reason For Exam: Shortness of breath EXAM: XR Chest, 1 View CLINICAL INDICATION: Shortness of breath TECHNIQUE: Frontal view of the chest. COMPARISON: No relevant prior studies available. FINDINGS: LUNGS AND PLEURAL SPACES: Unremarkable. No consolidation. No pneumothorax. HEART: Unremarkable. No cardiomegaly. MEDIASTINUM: Unremarkable. Normal mediastinal contour. BONES/JOINTS: Mild degenerative change of the spine. No acute fracture. [facility] Julia Cooper M D - 06/24/2025 Patient Name: THERESA MARX : 1965 Exam Date/Time: 06/24/2025 08:49 Procedure: XR CHEST 1 VIEW Ordering Provider: HENRY BRENDAN Reason For Exam: Shortness of breath EXAM: XR Chest, 1 View CLINICAL INDICATION: Shortness of breath TECHNIQUE: Frontal view of the chest. COMPARISON: No relevant prior studies available. FINDINGS: LUNGS AND PLEURAL SPACES: Unremarkable. No consolidation. No pneumothorax. HEART: Unremarkable. No cardiomegaly. MEDIASTINUM: Unremarkable. Normal mediastinal contour. BONES/JOINTS: Mild degenerative change of the spine. No acute fracture. IMPRESSION: No acute cardiopulmonary abnormality. Report Dictated on Electronically Signed By: Julia Cooper MD Electronically Signed Date/Time: 06/24/2025 9:02 AM EST [facility] Radiology Study observation (narrative) [facility] XR Chest Single viewOrdered By: Julia Cooper on 06-24-2025 [facility] Work Phone: aPTT Coag (Bld) [Time]on aPTT Coag (PPP) [Time] 49.3 s High 20.0 - 30.5 s [facility] Interpretation and review of laboratory results Abnormal [facility] NOTE: The therapeuti c time for Heparin anticoagulation, based on Xa activity inhibition, is an APTT of 46-80 seconds. [facility] aPTT Coag (PPP) [Time] 48.1 s High 20.0 - 30.5 s [facility] Interpretation and review of laboratory results Abnormal [facility] NOTE: The therapeuti c time for Heparin anticoagulation, based on Xa activity inhibition, is an APTT of 46-80 seconds. [facility] aPTT Coag (PPP) [Time] 41.5 s High 20.0 - 30.5 s [facility] Interpretation and review of laboratory results Abnormal [facility] NOTE: The therapeuti c time for Heparin anticoagulation, based on Xa activity inhibition, is an APTT of 46-80 seconds. [facility] APTTon 06-23-2025 aPTT Coag (Bld) [Time] 116.2 s High 20.0-30.5 [facility] Comment on above: Result Comment: EDITH Gillette COMMENTS: NOTE: The therapeutic time for Heparin anticoagulation, based on Xa activity inhibition, is an APTT of 46-80 seconds. Performed By: #### L [id number] #### [employer] Leader: FLAKITO ROMAN ([phone]) [facility] ([facility]) [address] [place] [address] Bedside Glucoseon 06-23-2025 FINGERSTICK GLU 162 mg/dL High 74-106 [facility] Comment on above: Result Comment: ANJALI GEMENT OF PATIENT CARE PER NURSING PROTOCOL Performed By: #### L 100.0100 #### [facility] [address] [place], [address] FINGERSTICK GLU 88 mg/dL Normal 74-106 [facility] Comment on above: Result Comment: ANJALI GEMENT OF PATIENT CARE PER NURSING PROTOCOL Performed By: #### L 501.080 #### [facility] [address] [place], [address] FINGERSTICK GLU 92 mg/dL Normal 74-106 [facility] Comment on above: Result Comment: ANJALI GEMENT OF PATIENT CARE PER NURSING PROTOCOL Performed By: #### L 501.080 #### [facility] [address] [place], [address] CBC (HEMOGRAM)on 06-23-2025 Erythrocyte distribution width (RBC) [Ratio] 13.0 % Normal 11.5-15.0 [facility] Comment on above: Performed By: #### L [id number] ####[employer] Leader: FLAKITO ROMAN ([phone])[facility] ([facility])[address] [place] [address] Hematocrit (Bld) [Volume fraction] 35.4 % Normal 35.0-47.0 [facility] Comment on above: Performed By: #### L [id number] ####[employer] Leader: FLAKITO ROMAN ([phone])[facility])[address] [place] [address] Hemoglobin (Bld) [Mass/Vol] 11.8 g/dL Normal 11.7-16.0 [facility] Comment on above: Performed By: #### L [id number] ####[employer] Leader: FLAKITO ROMAN ([phone])[facility])[address] [place] [address] MCH (RBC) [Entitic mass] 28.6 pg Normal 26.0-34.0 [facility] Comment on above: Performed By: #### L [id number] ####[employer] Leader: FLAKITO ROMAN ([id number])[facility])[address] [place] [address] MCHC 33.3 % Normal 30.5-36.0 [facility] Comment on above: Performed By: #### L [id number] ####[employer] Leader: FLAKITO ROMAN ([phone])[address] MCV (RBC) [Entitic vol] 85.9 fL Normal 77.0-99.0 [facility] Comment on above: Performed By: #### L [id number] ####[employer] Leader: FLAKITO ROMAN ([id number])[facility])[address] [place] [address] Platelet mean volume (Bld) [Entitic vol] 11.1 fL Normal 9.0-12.7 [facility] Comment on above: Performed By: #### L [id number] ####[employer] Leader: FLAKITO ROMAN ([id number])[facility])[address] [place] [address] Platelets (Bld) [#/Vol] 124 10*3/uL Low 140-440 [facility] Comment on above: Performed By: #### L [id number] ####[employer] Leader: FLAKITO ROMAN ([id number])[facility])[address] [place] [address] RBC (Bld) [#/Vol] 4.12 10*6/uL Normal 3.80-5.20 [facility] Comment on above: Performed By: #### L [id number] ####[employer] Leader: FLAKITO ROMAN ([id number])[facility] ([facility])[address] [place] [id number] [place] [address] WBC (Bld) [#/Vol] 8.0 10*3/uL Normal 3.6-10.7 [facility] Comment on above: Performed By: #### L AB294 ####[employer] Leader: FLAKITO ROMAN ([id number])[facility] ([facility])[address] [place] [address] CBC W/Diff, Automatedon 11-0 -2024 Absolute Lymph 2.35 X10 3/uL Normal 0.83-4.51 [facility] Comment on above: Performed By: #### L 100.0100 #### [facility] [address] [place], [address] Absolute Neut 3.5 X10 3/uL Normal 2.0-7.7 [facility] Comment on above: Performed By: #### L 100.0100 #### [facility] [address] [place], [address] Basophils/100 WBC (Bld) 0.4 % Normal 0-1 [facility] Comment on above: Performed By: #### L 100.0100 #### [facility] [address] [place], [address] Eosinophils/100 WBC (Bld) 5.7 % High 0-5 [facility] Comment on above: Performed By: #### L 100.0100 #### [facility] [address] [place], [address] Erythrocyte distribution width (RBC) [Ratio] 13.0 % Normal 11.6-14.6 [facility] Comment on above: Performed By: #### L 100.0100 #### [facility] [address] [place], [address] Hematocrit (Bld) [Volume fraction] 35.2 % Low 37-47 [facility] Comment on above: Performed By: #### L 100.0100 #### [facility] [address] [place], [address] Hemoglobin (Bld) [Mass/Vol] 11.6 g/dL Low 12.0-15.0 [facility] Comment on above: Performed By: #### L 100.0100 #### [facility] [address] [place], [address] IG% 0.300 Normal 0.0-0.9 [facility] Comment on above: Result Comment: IG% - Immature Granulocytes (promyelocytes, myelocytes and metamyelocytes) > 1% indicates that a LEFT SHIFT is Present. Performed By: #### L 100.0100 #### [facility] [address] [place], [address] Lymphocytes/100 WBC (Bld) 34.3 % Normal 19-41 [facility] Comment on above: Performed By: #### L 100.0100 #### [facility] [address] [place], [address] MCH (RBC) [Entitic mass] 28.3 pg Normal 27.0-32.0 [facility] Comment on above: Performed By: #### L 100.0100 #### [facility] [address] [place], [address] MCHC (RBC) [Mass/Vol] 33.0 g/dL Normal 32-36 [facility] Comment on above: Performed By: #### L 100.0100 #### [facility] [address] [place], [address] MCV (RBC) [Entitic vol] 85.9 fL Normal 81-99 [facility] Comment on above: Performed By: #### L 100.0100 #### [facility] [address] [place], [address] Monocytes/100 WBC (Bld) 8.2 % Normal 0-10 [facility] Comment on above: Performed By: #### L 100.0100 #### [facility] [address] [place], [address] Neutrophils/100 WBC (Bld) 51.1 % Normal 47-70 [facility] Comment on above: Performed By: #### L 100.0100 #### [facility] [address] [place], [address] Nucleated RBC (Bld) [#/Vol] 0 10*3/uL Normal 0-5 [facility] Comment on above: Performed By: #### L 100.0100 #### [facility] [address] [place], [address] Platelet mean volume (Bld) [Entitic vol] 10.6 fL Normal 6.2-12.0 [facility] Comment on above: Performed By: #### L 100.0100 #### [facility] [address] [place], [address] Platelets (Bld) [#/Vol] 119 10*3/uL Low 150-450 [facility] Comment on above: Performed By: #### L 100.0100 #### [facility] [address] [place], [address] RBC (Bld) [#/Vol] 4.10 10*6/uL Low 4.2-5.4 [facility] Comment on above: Performed By: #### L 100.0100 #### [facility] [address] [place], [address] RDW SD 40.5 fl Normal 35.1-43.9 [facility] Comment on above: Performed By: #### L 100.0100 #### [facility] [address] [place], [address] WBC (Bld) [#/Vol] 6.9 10*3/uL Normal 4.4-11.0 [facility] Comment on above: Performed By: #### L 100.0100 #### [facility] [address] [place], [address] CBC panel Auto (Bld)Ordered By: Maribel Mesa on 06-23-2025 Erythrocyte distribution width (RBC) [Ratio] 13 % 11.5 - 15.0 % [facility] Hematocrit (Bld) [Volume fraction] 35.4 % 35.0 - 47.0 % [facility] Hemoglobin (Bld) [Mass/Vol] 11.8 g/dL 11.7 - 16.0 g/dL [facility] Interpretation and review of laboratory results Abnormal [facility] MCH (RBC) [Entitic mass] 28.6 pg 26.0 - 34.0 pg [facility] MCHC (RBC) [Mass/Vol] 33.3 % 30.5 - 36.0 % [facility] MCV (RBC) [Entitic vol] 85.9 fL 77.0 - 99.0 fL [facility] Platelet mean volume (Bld) [Entitic vol] 11.1 fL 9.0 - 12.7 fL [facility] Platelets (Bld) [#/Vol] 124 10*3/uL Low 140 - 440 10*3/uL [facility] RBC (Bld) [#/Vol] 4.12 10*6/uL 3.80 - 5.2 0 10*6/uL [facility] WBC (Bld) [#/Vol] 8 10*3/uL 3.6 - 10.7 10*3/uL [facility] CK TOTAL AND CKMBon 06-23-20 25 CK [Catalytic activity/Vol] 387 U/L High 30-185 [facility] Comment on above: Performed By: #### L [id number], LAB17, LAB18, LAB63, UPQ242, XMW698, CGB408, UEW763 ####[employer] Leader: FLAKITO ROMAN ([phone])[facility] ([id number] CK.MB [Mass/Vol] 20.2 ng/mL High <=3.4 [facility] Comment on above: Result Comment: ORDE R COMMENTS: If CK-MB is elevated and the ratio of CK-MB to total CK (relative index) is more than 3, then it is likely that the heart was damaged. A high CK with a relative index below this value suggests that skeletal muscles were damaged. Performed By: #### L [id number], LAB17, LAB18, LAB63, YLW589, ESW788, AJJ240, TRO522 ####[employer] Leader: FLAKITO ROMAN ([phone])[address] RELATIVE INDEX 5.2 % High <=3.0 [facility] Comment on above: Performed By: #### L [id number], LAB17, LAB18, LAB63, POD049, ZFM231, LVL457, ITB983 ####[employer] Leader: FLAKITO ROMAN ([id number])[address] CK.total/Creatine kinase.MB [Catalytic ratio]on 06-23-2025 CK [Catalytic activity/Vol] 387 U/L High 30 - 185 U/L [facility] CK.MB [Mass/Vol] 20.2 ng/mL High [facility] - [facility] ng/mL [facility] Interpretation and review of laboratory results Abnormal [facility] RELATIVE INDEX 5.2 % High NINF - 3.0 % [facility] alth If CK-MB is elevated and the ratio of CK-MB to total CK (relative index) is more than 3, then it is likely that the heart was damaged. A high CK with a relative index below this value suggests that skeletal muscles were damaged. [facility] COMPREHENSIVE METABOLIC PANE José Miguel 06-23-2025 Albumin [Mass/Vol] 3.0 g/dL Low 3.1-4.5 [facility] Comment on above: Performed By: #### L [id number], LAB17, LAB18, LAB63, NMF839, MJC410, EKC734, LUM198 ####[employer] Leader: FLAKITO ROMAN ([phone])[facility])[address] [place] [address] ALP [Catalytic activity/Vol] 115 U/L Normal 40-150 [facility] Comment on above: Performed By: #### L [id number], LAB17, LAB18, LAB63, GUZ570, ZPT488, NQL806, RZC050 ####[employer] Leader: FLAKITO ROMAN ([phone])[facility] ([facility])[address] [place] [address] ALT [Catalytic activity/Vol] 46 U/L High <30 [facility] Comment on above: Performed By: #### L [id number], LAB17, LAB18, LAB63, AEE701, HTO491, HNJ236, IFK855 ####[employer] Manufacturing Leader: FLAKITO ROMAN ([id number])[facility] ([facility])[address] [place] [address] Anion gap [Moles/Vol] 6 mmol/L Normal 3-13 [facility] Comment on above: Performed By: #### L [id number], LAB17, LAB18, LAB63, SLU922, WQT061, ZVU026, PGT445 ####[employer] Manufacturing Leader: FLAKITO ROMAN ([id number])[facility] ([facility])[address] [place] [address] AST [Catalytic activity/Vol] 113 U/L High <34 [facility] Comment on above: Performed By: #### L [id number], LAB17, LAB18, LAB63, ZWF004, XFN550, LXJ302, HRZ100 ####[employer] Leader: FLAKITO ROMAN ([id number])[facility] ([facility])[address] [place] [address] Bilirubin [Mass/Vol] 0.6 mg/dL Normal <1.2 [facility] Comment on above: Performed By: #### L [id number], LAB17, LAB18, LAB63, YKU545, KBJ607, SEC943, RCY233 ####[employer] Manufacturing Leader: FLAKITO ROMAN ([id number])[facility])[address] [place] [address] Calcium [Mass/Vol] 8.4 mg/dL Low 8.8-10.0 [facility] Comment on above: Performed By: #### L [id number], LAB17, LAB18, LAB63, KIG962, SGF087, MLW080, ODR466 ####[employer] Leader: FLAKITO ROMAN ([id number])[facility])[address] [place] [address] Chloride [Moles/Vol] 105 mmol/L Normal 98-107 [facility] Comment on above: Performed By: #### L [id number], LAB17, LAB18, LAB63, TNN093, JRG221, KJV693, AIN516 ####[employer] Leader: FLAKITO ROMAN ([id number])[facility] ([facility])[address] [place] [address] CO2 [Moles/Vol] 25 mmol/L Normal 23-31 [facility] Comment on above: Performed By: #### L [id number], LAB17, LAB18, LAB63, SBY022, PPL594, BGR886, DGW749 ####[employer] Leader: FLAKITO ROMAN ([phone])[facility])[address] [place] [address] Creatinine [Mass/Vol] 0.66 mg/dL Normal 0.58-1.12 [facility] Comment on above: Performed By: #### L [id number], LAB17, LAB18, LAB63, HUM596, OXC296, OUH095, ACP540 ####[employer] Leader: FLAKITO ROMAN ([id number])[facility])[address] [place] [address] GLOMERULAR FILTRATION RATE ML/MIN/1.73 SQ M.PREDICTED >90.0 Normal >60.0 [facility] Comment on above: Result Comment: Calc ulation based on the Chronic Kidney Disease Epidemiology Collaboration (CKD-EPI) equation refit without adjustment for race Performed By: #### L [id number], LAB17, LAB18, LAB63, EZQ120, EAG130, ILH121, MPT705 ####[employer] Leader: FLAKITO ROMAN ([id number])[facility])[address] [place] [address] Glucose [Mass/Vol] 120 mg/dL High 82-115 [facility] Comment on above: Performed By: #### L [id number], LAB17, LAB18, LAB63, BPF375, XFE950, AMT309, BJI689 ####[employer] Leader: FLAKITO ROMAN ([id number])[facility])[address] [place] [address] Potassium [Moles/Vol] 3.5 mmol/L Normal 3.5-5.1 [facility] Comment on above: Result Comment: [facility] potassium values may be up to 0.5 mmol/L lower than serum values. Performed By: #### L [id number], LAB17, LAB18, LAB63, DME187, UGK616, EFE826, WMZ081 ####[employer] Leader: FLAKITO ROMAN ([id number])[facility])[address] [place] [address] Protein [Mass/Vol] 6.6 g/dL Normal 6.4-8.3 [facility] Comment on above: Performed By: #### Alex [id number], LAB17, LAB18, LAB63, RLD947, PGI368, JOB028, GLE886 ####[employer] Leader: FLAKITO ROMAN ([id number])[facility])[address] [place] [address] Sodium [Moles/Vol] 136 mmol/L Normal 136-145 [facility] Comment on above: Performed By: #### L [id number], LAB17, LAB18, LAB63, ONP069, IFL447, UZE831, ENR972 ####[employer] Leader: FLAKITO ROMAN ([id number])[facility])[address] [place] [address] Urea nitrogen [Mass/Vol] 10 mg/dL Normal 9-23 [facility] Comment on above: Performed By: #### L [id number], LAB17, LAB18, LAB63, BID490, LCK035, UHC770, BOL303 ####[employer] Leader: FLAKITO ROMAN ([id number])[facility])[address] [place] [address] CVS/PCIREPORTon 06-23-2025 CVS[facility]PCIREPORT [facility] [address] [place] [address] MR#: [id number] Acct: [id number] Name: THERESA MARX Rep #: [id number] : 1965 59 From: Kel Smith MD Primary Care: ABELINO VELEZ Status: A DM KENNEDY Referring Dr: Sex: F C ADDENDUM by Dr. Kel Smith MD on 06/23/25 at 1155 Addendum Consider the addition of an CAROLINE inhibitor or angiotensin receptor gumaro due to the underlying diabetic status 06/23/25 1156 Date Kel Smith MD cc: ABELINO VELEZ; Dr. Gurwinder Zavala MD * Signed PCI Cardiac Cath Report PCI Report: Procedures #1 left catheterization #2 coronary arteriography #3 ventriculography Indication???non-STEM I with underlying diabetes mellitus, dyslipidemia, anxiety and depression with significant delta change in her high-sensitivity troponin up to 360 Conscious sedation???under my supervision, a licensed practitioner, 1 mg of Versed, 50 mg of fentanyl were administered Fluoroscopy time 4.1 minutes Radiation dose 11.5 Gy Technique of the procedure???using right radial artery access, 6 Bulgarian sheath, JL 3.5, JR4, guidewire exchanges, the procedure was performed. The JL 4 was selective engage the left main coronary artery and the JR4 was selective engage the right coronary artery. Multiple orthogonal views were obtained. The ventriculogram???was performed in the GEE projection revealing normal-sized ventricle with normal systolic function ejection fraction around 60%. 5 Bulgarian pigtail catheter was advanced into the LV cavity to record pressures and pullback Hemodynamics???left current SL pressure measured at 4 mmHg, no pressure gradient pressure across aortic valve Coronary anatomy Left main trunk???large caliber vessel with a distal lesion just immediately following the origin of a small bifurcating left circumflex system Left anterior descending artery???large caliber vessel with a large proximal diagonal branch that is almost LAD equivalent. The ostial LAD has a 90% stenosis, the proximal LAD prior to the bifurcation has an 80% hazy stenosis. The lesion itself involves part of the distal left main Left circumflex???moderate caliber vessel with bifurcation into 2 small obtuse marginal branches and free of significant disease Right coronary artery???very large dominant vessel with large PDA and PLV with only minor luminal irregularities Conclusion #1 normal left ventricular size size and function #2 normal intracardiac pressures #3 distal left main ostial LAD bifurcation 80 to 90% hazy stenosis that involves the origin of a very large proximal diagonal branch and the left circumflex ostium is relatively small in caliber with no significant RCA disease Discussion Based on the diabetic status, the location of the lesion involving approximately the large diagonal bifurcation, complete revascularization by surgical technique would be a class Ia indication based on ACC AHA criteria however the option of PCI was discussed with the patient as an alternative noninferior strategy but on the long-term care is more potential revascularization Will transfer the patient for heart team approach discussion Meanwhile aggressive medical therapy including hypotensive statins, dual antiplatelet therapy will be initiated Continue anticoagulation with heparin after sheath removal 06/23/25 1147 Date Kel Smith MD CC: ABELINO VELEZ; Dr. Gurwinder Zavala MD Date Dictated: 06/23/251138 Date Transcribed: 06/23/251138 Networking Administrator: SA Signed Normal [facility] Comprehensive Metabolic Prof ilon 06-23-2025 Albumin [Mass/Vol] 3.3 g/dL Low 3.4-4.8 [facility] Comment on above: Performed By: #### L 501.9985, L500.4050, L500.4100 #### [facility] [address] [place], [address] Albumin/Globulin [Mass ratio] 1.1 {ratio} Normal 0.9-2.4 [facility] Comment on above: Performed By: #### L 501.9985, L500.4050, L500.4100 #### [facility] [address] [place], [address] ALK PHOS 101 U/L Normal 35-104 [facility] Comment on above: Performed By: #### L 501.9985, L500.4050, L500.4100 #### [facility] [address] [place], [address] ALT [Catalytic activity/Vol] 31 U/L Normal <=34 [facility] Comment on above: Performed By: #### L 501.9985, L500.4050, L500.4100 #### [facility] [address] [place], [address] AST [Catalytic activity/Vol] 70 U/L High <=31 [facility] Comment on above: Performed By: #### L 501.9985, L500.4050, L500.4100 #### [facility] [address] [place], [address] Bilirubin [Mass/Vol] 0.59 mg/dL Normal 0.00-1.30 [facility] Comment on above: Performed By: #### L 501.9985, L500.4050, L500.4100 #### [facility] [address] [place], [address] BUN/CRE 12.3 RATIO Normal 10-20 [facility] Comment on above: Performed By: #### L 501.9985, L500.4050, L500.4100 #### [facility] [address] [place], [address] Calcium [Mass/Vol] 8.8 mg/dL Normal 7.6-11.0 [facility] Comment on above: Performed By: #### L 501.9985, L500.4050, L500.4100 #### [facility] [address] [place], [address] Chloride [Moles/Vol] 106 mmol/L Normal 98-108 [facility] Comment on above: Performed By: #### L 501.9985, L500.4050, L500.4100 #### [facility] [address] [place], [address] CO2 [Moles/Vol] 27.3 mmol/L Normal 21.0-32.0 [facility] Comment on above: Performed By: #### L 501.9985, L500.4050, L500.4100 #### [facility] [address] [place], [address] Creatinine [Mass/Vol] 0.70 mg/dL Normal 0.70-1.20 [facility] Comment on above: Performed By: #### L 501.9985, L500.4050, L500.4100 #### [facility] [address] [place], [address] ECRCL 83.24 ml/min Normal 50-250 [facility] Comment on above: Performed By: #### L 501.9985, L500.4050, L500.4100 #### [facility] [address] [place], [address] GAP 7 Normal 5-15 [facility] Comment on above: Performed By: #### L 501.9985, L500.4050, L500.4100 #### [facility] [address] [place], [address] GFR/1.73 sq M.predicted among non-blacks MDRD (S/P/Bld) [Vol rate/Area] 98 mL/min/{1.73_m2} Normal >60 [facility] Comment on above: Result Comment: mL/m in/1.73m2 CKD-EPI Creatinine Equation (2020) Performed By: #### L 501.9985, L500.4050, L500.4100 #### [facility] [address] [place], [address] Globulin (S) [Mass/Vol] 3.1 g/dL Normal 2.2-4.2 [facility] Comment on above: Performed By: #### L 501.9985, L500.4050, L500.4100 #### [facility] [address] [place], [address] Glucose [Mass/Vol] 109 mg/dL High 70-99 [facility] Comment on above: Performed By: #### L [id number], L500.4050, L500.4100 #### [facility] [address] [place], [address] Potassium [Moles/Vol] 3.5 mmol/L Normal 3.3-5.1 [facility] Comment on above: Performed By: #### L 501.9985, L500.4050, L500.4100 #### [facility] [address] [place], [address] Sodium [Moles/Vol] 140 mmol/L Normal 133-145 [facility] Comment on above: Performed By: #### L 501.9985, L500.4050, L500.4100 #### [facility] [address] [place], [address] T PROT 6.3 g/dL Normal 5.9-8.4 [facility] Comment on above: Performed By: #### L 501.9985, L500.4050, L500.4100 #### [facility] [address] [place], [address] Urea nitrogen [Mass/Vol] 9 mg/dL Normal 4-19 [facility] Comment on above: Performed By: #### L 501.9985, L500.4050, L500.4100 #### [facility] [address] [place], [address] Comprehensive metabolic 1998 panelon 06-23-2025 Albumin [Mass/Vol] 3 g/dL Low 3.1 - 4.5 g/dL [facility] ALP [Catalytic activity/Vol] 115 U/L 40 - 150 U/L [facility] ALT [Catalytic activity/Vol] 46 U/L High [facility] U/L [facility] Anion gap [Moles/Vol] 6 mmol/L 3 - 13 mmol/L [facility] AST [Catalytic activity/Vol] 113 U/L High NINF - 34 U/L [facility] Bilirubin [Mass/Vol] 0.6 mg/dL NINF - 1.2 mg/dL [facility] Calcium [Mass/Vol] 8.4 mg/dL Low 8.8 - 10. 0 mg/dL [facility] Chloride [Moles/Vol] 105 mmol/L 98 - 10 7 mmol/L [facility] CO2 [Moles/Vol] 25 mmol/L 23 - 31 mmol/L [facility] Creatinine [Mass/Vol] 0.66 mg/dL 0.58 - 1.12 mg/dL [facility] GFR/1.73 sq M.predicted (S/P/Bld) [Vol rate/Area] - PINF [facility] Comment on above: Calculation based on the Chronic Kidney Disease Epidemiology Collaboration (CKD-EPI) equation refit without adjustment for race Glucose [Mass/Vol] 120 mg/dL High 82 - 115 mg/dL [facility] Potassium [Moles/Vol] 3.5 mmol/L 3.5 - 5.1 mmol/L [facility] Comment on above: Plasma potassium nichelle ues may be up to 0.5 mmol/L lower than serum values. Protein [Mass/Vol] 6.6 g/dL 6.4 - 8.3 g/dL [facility] Sodium [Moles/Vol] 136 mmol/L 136 - 145 mmol/L [facility] Urea nitrogen [Mass/Vol] 10 mg/dL 9 - 23 mg/dL [facility] Consultation - Cardiologyon 06-23-2025 Consultation - Cardiology [facility] Medical Records Department [address] [place] [address] Consultation - Cardiology 06/23/25 0757 MR#: [id number] Acct: [id number] Name: THERESA MARX Rep #: [id number] : 1965 59 From: Jack Shelton MD PCP: ABELINO VELEZ Status:ADM [facility] Location: [place] [address] Assessment Plan Assessment/Plan (1) Chest pain: PLAN: She presents with chest discomfort which has some atypical features. However her troponin is noted to be markedly elevated with a significant rise and fall with no other explanation. 1 would need to exclude Takotsubo cardiomyopathy or a plaque rupture. * Would recommend an echocardiogram to assess wall motion and the ventricular function. * My threshold to perform a cardiac catheterization will be rather low at this time. * Continue aspirin * Low-dose beta-gumaro * Statin * Will communicate plans to you after reviewing the echocardiogram. Above discussed with the patient and nursing staff. HPI Consult Data Date of Consult: 06/23/25 HPI Narrative HPI Narrative: THERESA MARX, is a 59 F who presents initially to the urgent care after she experienced chest discomfort which she described as sharp with no radiation. She says that she was asked to go to the emergency room and emergency room they did an EKG which demonstrated no changes but cardiac enzymes did demonstrate a significant abnormality. She was decidedly admitted with further recommendations for cardiology consult. She denies any previous such episode there was no evidence of heavy chest discomfort no radiation to the arms or jaws. She has not been under any stress recently. She however has had an upper respiratory tract infection recently. She has not had any fevers though. She does not have any significant family history of coronary disease she is an ex-smoker and is treated for anxiety and depression. At this particular time she appears to be pain-free. [ ] [facility] Medical History Former tobacco use Anxiety and depression Diabetes Home Medications ???Medication ???Instructions ???Recorded ???Last Taken ???Type bupropion HCl 150 mg 24 hr tablet, 150 mg PO DAILY 06/22/25 5 History extended release pioglitazone 15 mg tablet 15 mg PO DAILY 06/22/25 Unknown Hi story venlafaxine 75 mg capsule,extended 75 mg PO DAILY 06/22/25 06/22/25 History release 24 hr Allergy/AdvReac Type Severity Reaction Status Date / Time No Known Allergies Allergy Verified 06/22/25 18:13 Family History Mother CVA (cerebral vascular accident) Hypertension HLD (hyperlipidemia) Dementia Father Dementia Hypertension HLD (hyperlipidemia) CVA (cerebral vascular accident) CAD (coronary artery disease) Myocardial infarction Surgical History Hx of bladder repair surgery History of hysterectomy History of cholecystectomy Social History household members: other details: Lives in [place], visits her daughter and family. Smoking Status: Former smoker how long ago did patient quit smoking: Quit 2006, started age 22, smoked 1/2 intermittently until quit. alcohol intake: never substance use type: does not use ROS Constitutional Constitutional: Denies fever(s) or weight loss Eyes Eyes: Reports systems reviewed and no addt'l complaints, except as documented ENT HEENT: Reports systems reviewed and no addt'l complaints, except as documented Cardiovascular Cardiovascular: Reports chest pain at rest; Denies chest pain with activity, dyspnea at rest, dyspnea on exertion, edema, palpitations or paroxysmal nocturnal dyspnea Respiratory/Chest Respiratory/Chest: Denies dyspnea on exertion, productive cough, shortness of breath at rest or shortness of breath with exertion Gastrointestinal Gastrointestinal: Denies change in bowel habits, nausea, vomiting or weight changes Genitourinary Genitourinary: Denies difficulty urinating Musculoskeletal Musculoskeletal: Denies joint stiffness or muscle weakness Integumentary Integumentary: Denies lesions Neurologic Neurologic: Denies dizziness or syncope Psychiatric Psychiatric: Denies anxiety Endocrine Endocrinology: Denies excessive sweating or fatigue Hematologic/Lymphatic Hematologic/Lymphatic : Denies anemia Allergic/Immunologic Allergic/Immunologic: Denies seasonal rhinorrhea Physical Exam Const alert and oriented x3 Orientation / Consciousness: awake HEENT normocephalic Eyes PERRL Neck full ROM Carotids: normal carotid upstroke Chest inspection of chest normal Cardio regular rate and regular rhythm Extremity normal to inspection Objective Data Vital Signs: Vital (more content not included)... Normal [facility] HEMOGLOBIN A1Con 06-23-2025 Glucose [Mass/Vol] 117 mg/dL Normal [facility] Comment on above: Result Comment: ORDE R COMMENTS: HbA1c values of 5.7-6.4 percent indicate an increased risk for developing diabetes mellitus. HbA1c values greater than or equal to 6.5 percent are diagnostic of diabetes mellitus. For diagnosis of diabetes in individuals without unequivocal hyperglycemia, results should be confirmed by repeat testing. Performed By: #### L [id number] #### [employer] Leader: FLAKITO ROMAN ([id number]) [facility] ([facility]) [address] [place] [address] HEMOGLOBIN A1C 5.7 %HbA1C High <5.7 [facility] Comment on above: Result Comment: Norm al less than 5.7% Prediabetes 5.7% to 6.4% Diabetes 6.5% or higher --HgbA1C levels may not be accurate in patients who have renal disease, received recent blood transfusions, are anemic, or who have dyshemoglobinemia. Performed By: #### L [id number] #### [employer] Leader: FLAKITO ROMAN ([phone]) [facility] ([facility]) [address] [place] [address] HIGH SENSITIVITY TROPONIN, S ERIAL BASELINEon 06-23-2025 TROPONIN HS SERIAL BASELINE 97149 ng/L Critically high <=14 [facility] Comment on above: Result Comment: In i ndividuals presenting with symptoms > 2h, a baseline troponin <= 5 ng/L suggests acute cardiac injury is unlikely and further serial testing is generally not indicated. Performed By: #### L [id number], LAB17, LAB18, LAB63, TNM476, PLC993, ZWS306, JZC292 ####[employer] Leader: FLAKITO ROMAN ([id number])[facility] ([facility])[address] [place] [address] HIGH SENSITIVITY TROPONIN, S ERIAL, SECOND TESTon 06-23-2025 2H TROPONIN HS (SERIAL 2ND TROPONIN) 8371 ng/L Critically high <=14 [facility] Comment on above: Result Comment: Risi ng or falling troponin delta greater than 15 ng/L as compared to baseline value is significant for acute cardiac injury. Performed By: #### L [id number] ####[employer] Leader: FLAKITO ROMAN ([id number])[facility])[address] [place] [address] Hemoglobin A1con 11-01-2025 HbA1c (Bld) [Mass fraction] 5.4 % Normal <=5.6 [facility] Comment on above: Result Comment: Norm al < 5.7 % Prediabetic 5.7 - 6.4 % Diabetic >or= 6.5 % Please note range changes. Performed By: #### L 501.9985, L500.4050, L500.4100 #### [facility] [address] [place], [address] L501.4021on 06-23-2025 Trop T High Sen 374 ng/L Invalid Interpretation Code <=14 [facility] Comment on above: Result Comment: Crit ical Result(s) Called at 0630: by: ESPINOZA GUARDADO TO MALENA. ??Results read back by same. Performed By: #### L 100.0100 #### [facility] [address], [address] LIPID PANELon 06-23-2025 Cholesterol [Mass/Vol] 210 mg/dL High <200 [facility] Comment on above: Order Comment: If no t done in the last six months. Performed By: #### L [id number], LAB17, LAB18, LAB63, KWR275, ZTN031, CBY001, WBW268 ####[employer] Leader: FLAKITO ROMAN ([id number])[address] Cholesterol in HDL [Mass/Vol] 43 mg/dL Low >=60 [facility] Comment on above: Order Comment: If no t done in the last six months. Performed By: #### L [id number], LAB17, LAB18, LAB63, HFP663, ZCY277, LGP868, FEV448 ####[employer] Leader: FLAKITO ROMAN ([id number])[facility])[address] [place] [address] Cholesterol.total/Chol esterol in HDL [Mass ratio] 5 {ratio} Normal [facility] Comment on above: Order Comment: If no t done in the last six months. Result Comment: Ref Range: < 3 Low Risk for CHD 3-6 Mod Risk for CHD > 6 High Risk for CHD Performed By: #### L [id number], LAB17, LAB18, LAB63, PUV000, UEU761, PJK701, NDH966 ####[employer] Leader: FLAKITO ROMAN ([id number])[facility])[address] [place] [address] LOW DENSITY LIPOPROTEIN 155 mg/dL High 0-<100 [facility] Comment on above: Order Comment: If no t done in the last six months. Performed By: #### L [id number], LAB17, LAB18, LAB63, ERN979, LQY248, UQW551, ZFQ052 ####[employer] Leader: FLAKITO ROMAN ([id number])[facility])[address] [place] [address] NON-HDL CHOLESTEROL, CALCULATED 167 High <130 [facility] Comment on above: Order Comment: If no t done in the last six months. Performed By: #### L [id number], LAB17, LAB18, LAB63, PQF313, QTB662, VHY853, QOM885 ####[employer] Leader: FLAKITO ROMAN ([id number])[address] Triglyceride [Mass/Vol] 59 mg/dL Normal <150 [facility] Comment on above: Order Comment: If no t done in the last six months. Performed By: #### L [id number], LAB17, LAB18, LAB63, POR794, MKX443, SVO216, FXY454 ####[employer] Leader: FLAKITO ROMAN ([id number])[facility])[address] [place] [address] VERY LOW DENSITY LIPOPROTEIN, CALCULATED 12 mg/dL Normal <=30 [facility] Comment on above: Order Comment: If no t done in the last six months. Performed By: #### L [id number], LAB17, LAB18, LAB63, TQH439, NIL462, VIV197, UEU777 ####[employer] Leader: FLAKITO ROMAN ([id number])[facility] [place] [address] Laboratory - Chemistry and C hemistry - challengeon 06-23-2025 Average glucose Estimated from glycated hemoglobin (Bld) [Mass/Vol] 117 mg/dL [facility] TSH Qn 1.01 m[IU]/L [facility] Magnesium [Mass/Vol] 1.9 mg/dL 1.6 - 2 .6 mg/dL [facility] Glucose [Mass/Vol] 118 mg/dL High 70 - 100 mg/dL [facility] Laboratory - Hematology and Cell countson 06-23-2025 HbA1c (Bld) [Mass fraction] 5.7 % High [facility] Comment on above: Normal less than 5.7 % Prediabetes 5.7% to 6.4% Diabetes 6.5% or higher --HgbA1C levels may not be accurate in patients who have renal disease, received recent blood transfusions, are anemic, or who have dyshemoglobinemia. Lipid 1996 panelon Cholesterol [Mass/Vol] 210 mg/dL High [facility] - 200 mg/dL [facility] Cholesterol in HDL [Mass/Vol] 43 mg/dL Low 60 - PINF mg/dL [facility] Cholesterol in LDL [Mass/Vol] 155 mg/dL High 0 - <100 [facility] Cholesterol.total/Chol esterol in HDL [Mass ratio] 5 {ratio} [facility] Comment on above: Ref Range: < 3 Low Risk for CHD 3-6 Mod Risk for CHD > 6 High Risk for CHD NON-HDL CHOLESTEROL, CALCULATED 167 High [facility] - 130 [facility] Triglyceride [Mass/Vol] 59 mg/dL [facility] - 150 mg/dL [facility] VERY LOW DENSITY LIPOPROTEIN, CALCULATED 12 mg/dL [facility] - 30 mg/dL [facility] Lipid Profileon 06-23-2025 CHOL:HDL 4.03 Normal [facility] Comment on above: Performed By: #### L 300.1845, L300.8482 #### [facility] [address] [place], [address] Cholesterol [Mass/Vol] 201 mg/dL Normal <=200 [facility] Comment on above: Result Comment: Chol esterol level, Desirable <200 mg/dL Borderline high cholesterol 200-239 mg/dL High cholesterol >=240 mg/dL Recommendations of the NCEP Adult Treatment Panel for the following risk-cutoff thresholds for the [place] population. Performed By: #### L 300.4310, L300.3900 #### [facility] [address] [place], [address] Cholesterol in HDL [Mass/Vol] 50 mg/dL Normal [facility] Comment on above: Result Comment: Sheela onal Cholesterol Education Program (NCEP) guidelines: <40 mg/dL: Low HDL-cholesterol (major risk factor for CHD) >= 60 mg/dL: High HDL-cholesterol (negative risk factor for CHD) HDL-cholesterol is affected by a number of factors, e.g. smoking, exercise, hormones, sex and age. Performed By: #### L 300.4310, L300.3900 #### [facility] [address] [place], [address] Cholesterol in LDL [Mass/Vol] 139 mg/dL Normal [facility] Comment on above: Result Comment: Bord xkyisw=865-084 mg/dL Higher Tcei=695 mg/dL or greater Powell Equation 2020 for LDL-C Performed By: #### L 300.4310, L300.3900 #### [facility] [address] [place], [address] Cholesterol in VLDL [Mass/Vol] 14 mg/dL Normal 5-40 [facility] Comment on above: Performed By: #### L 300.4310, L300.3900 #### [facility] [address] [place], [address] Triglyceride [Mass/Vol] 68 mg/dL Normal [facility] Comment on above: Result Comment: The drugs N-Acetylcysteine and Metamizole may falsely depress this assay. Normal range: <150 mg/dL Borderline High: 150-199 mg/dL High: 200-499 mg/dL Very High: >500 mg/dL Performed By: #### L 300.4310, L300.3900 #### [facility] [address] [place], [address] MAGNESIUMon 06-23-2025 Magnesium [Mass/Vol] 1.9 mg/dL Normal 1.6-2.6 [facility] Comment on above: Result Comment: EDITH Gillette COMMENTS: Higher values can be expected in females during menses. Performed By: #### L [id number], LAB17, LAB18, LAB63, DMG298, WYL891, ZGZ102, EHD399 ####[employer] Leader: FLAKITO ROMAN ([id number])[facility] ([facility])[address] [place] [address] [place] Magnesium [Mass/Vol]on 06-23 Higher values can be expected in females during menses. [facility] PRO BNPon 06-23-2025 Natriuretic peptide B (Bld) [Mass/Vol] 668 pg/mL High <334 [facility] Comment on above: Result Comment: EDITH Gillette COMMENTS: In patients with suspected acute HF, NT-proBNP age-related cut-points are 450, 900, and 1800 pg/mL for ages <50, 50???75, and >75 years respectively. NT-proBNP concentration <300 pg/mL provides a very high NPV for HF in an acute setting, independent of age. In a non-acute setting, heart failure is unlikely with a NT-proBNP concentration <125 pg/mL while a value >600 pg/mL is likely due to heart failure. Patients with levels in the boone zone (between rule-out and rule-in levels) need extra physician attention and ancillary testing. For the unusual patient aged <50 years with severe CKD, a cut point of 1,200 ng/L for NT-proBNP would be indicated. Testing is performed on a new assay on a new instrument and values may not correlate well with previous values. Performed By: #### L [id number], LAB17, LAB18, LAB63, DEI628, PCX238, SQH879, MDL264 ####[employer] Leader: FLAKITO ROMAN ([id number])[facility] ([facility])[address] [place] [address] [place] Natriuretic peptide B [Mass/ Vol]on 06-23-2025 Natriuretic peptide B (Bld) [Mass/Vol] 668 pg/mL High NINF - 334 pg/mL [facility] In patients with suspected acute HF, NT-proBNP age-related cut-points are 450, 900, and 1800 pg/mL for ages <50, 50 75, and >75 years respectively. NT-proBNP concentration <300 pg/mL provides a very high NPV for HF in an acute setting, independent of age. In a non-acute setting, heart failure is unlikely with a NT-proBNP concentration <125 pg/mL while a value >600 pg/mL is likely due to heart failure. Patients with levels in the boone zone (between rule-out and rule-in levels) need extra physician attention and ancillary testing. For the unusual patient aged <50 years with severe CKD, a cut point of 1,200 ng/L for NT-proBNP would be indicated. Testing is performed on a new assay on a new instrument and values may not correlate well with previous values. [facility] No Panel Informationon 06-23 2h Troponin HS (Serial 2nd Troponin) 8371 ng/L Critically high NINF - 14 ng/L [facility] Comment on above: Rising or falling tr oponin delta greater than 15 ng/L as compared to baseline value is significant for acute cardiac injury. Interpretation and review of laboratory results Abnormal [facility] Interpretation and review of laboratory results Abnormal [facility] HbA1c values of 5.7-6.4 percent indicate an increased risk for developing diabetes mellitus. HbA1c values greater than or equal to 6.5 percent are diagnostic of diabetes mellitus. For diagnosis of diabetes in individuals without unequivocal hyperglycemia, results should be confirmed by repeat testing. [facility] Interpretation and review of laboratory results Abnormal [facility] Interpretation and review of laboratory results Normal [facility] Interpretation and review of laboratory results Abnormal [facility] Performed by: [facility], [address] [place], [place] [id number] CLIA ID: [id number] [facility] No Panel InformationOrdered By: Priscilla Delgado on 06-23-2025 Interpretation and review of laboratory results Abnormal [facility] Troponin HS Serial Baseline 07433 ng/L Critically high NINF - 14 ng/L [facility] Comment on above: In individuals prese nting with symptoms > 2h, a baseline troponin <= 5 ng/L suggests acute cardiac injury is unlikely and further serial testing is generally not indicated. [facility] Nursing Noteon 06-23-2025 Nursing Note RN worked with Dr. Christina ramirez and pharmacy to get appropriate heparin gtt order in due to pt already having the gtt running at 9 units/kg/hr from [facility]. Normal [facility] PHOSPHORUSon 06-23-2025 Phosphate [Mass/Vol] 3.1 mg/dL Normal 2.3-4.[address] [facility] Comment on above: Performed By: #### L [id number], LAB17, LAB18, LAB63, WVF698, LPN128, HVO946, BNG281 ####[employer] Leader: FLAKITO ROMAN ([phone])[facility] ([facility])[address] [place] [address] Partial Thromboplast Timeon 06-23-2025 aPTT Coag (Bld) [Time] 51.2 s High 24.1-36.2 [facility] Comment on above: Performed By: #### L 300.4310, L300.3900 #### [facility] [address] [place], [place], [id number] aPTT Coag (Bld) [Time] 181.9 s Invalid Interpretation Code 24.1-36.2 [facility] Comment on above: Order Comment: Comme nts: Heparin drip Result Comment: CRIT ICAL VALUE CALLED TO MALENA 06/23/25 0635 Pancho Gonzales. RESULTS READ BACK BY SAME. Performed By: #### L [id number] #### [facility] [address] [place], [place], [id number] Phosphate [Moles/Vol]on Phosphate [Mass/Vol] 3.1 mg/dL 2.3 - 4 .7 mg/dL [facility] Prothrombin Time w/INRon INR Coag (PPP) [Relative time] 1.3 {INR} Normal [facility] Comment on above: Performed By: #### L 300.4310, L300.3900 #### [facility] [address] [place], [place], [id number] PT Coag (PPP) [Time] 16.0 s High 11.7-14.9 [facility] Comment on above: Performed By: #### L 300.4310, L300.3900 #### [facility] [address] [place], [place], [id number] THYROID STIMULATING HORMONEo n 06-23-2025 THYROID STIMULATING HORMONE 1.01 uIU/mL Normal 0.35-4.94 [facility] Comment on above: Performed By: #### L [id number], LAB17, LAB18, LAB63, VCN985, ALA419, QUT370, EAR271 ####[employer] Leader: FLAKITO ROMAN ([phone])[facility] ([facility])[address] [place] [address] TSH Qnon 06-23-2025 Interpretation and review of laboratory results Normal [facility] aPTT Coag (Bld) [Time]on aPTT Coag (PPP) [Time] 116.2 s High 20.0 - 30.5 s [facility] Interpretation and review of laboratory results Abnormal [facility] NOTE: The therapeuti c time for Heparin anticoagulation, based on Xa activity inhibition, is an APTT of 46-80 seconds. [facility] 12 Lead EKGon 06-22-2025 12 Lead EKG [facility] [address] [place] [address] 12 Lead EKG 06/23/25 0504 MR#: [id number] Acct: [id number] Name: THERESA MARX Rep #: [id number] : 1965 59 From: Jack Shelton MD Attending Dr: Dr. Gurwinder Zavala MD Status : DIS KENNEDY Ordering Dr: Eloise Fernández MD Date: 06/22/25 Location: [facility] Sex: F C Admitted: 06/22/25 Test Reason : AM EKG Blood Pressure : */* mmHG Vent. Rate : 71 BPM Atrial Rate : 71 BPM P-R Int : 172 ms QRS Dur : 86 ms QT Int : 410 ms P-R-T Axes : 47 65 36 degrees QTcB Int : 445 ms Normal sinus rhythm Nonspecific ST abnormality Abnormal ECG When compared with ECG of 22-Jun-2025 22:07, MANUAL COMPARISON REQUIRED DATA IS UNCONFIRMED Confirmed by JACK SHELTON MD ([id number]), sound editor DARYA PICKETT ([id number]) on 06/25/2025 6:32:52 AM Referred By: Confirmed By: JACK SHELTON MD 06/25/25 0632 Date Jack Shelton MD CC: ABELINO VELEZ; Dr. Eloise Fernández MD; Dr. Gurwinder Zavala MD Signed Normal [facility] 12 Lead EKG [facility] [address] [place] [address] 12 Lead EKG 06/22/25 2207 MR#: [id number] Acct: [id number] Name: THERESA MARX Rep #: [id number] : 1965 59 From: Vikas Arredondo MD Attending Dr: Dr. Gurwinder Zavala MD Status : DIS KENNEDY Ordering Dr: Eloise Fernández MD Date: 06/22/25 Location: [facility] Sex: F C Admitted: 06/22/25 Test Reason : REPEAT CP Blood Pressure : */* mmHG Vent. Rate : 77 BPM Atrial Rate : 77 BPM P-R Int : 146 ms QRS Dur : 100 ms QT Int : 376 ms P-R-T Axes : 51 62 40 degrees QTcB Int : 425 ms Normal sinus rhythm Nonspecific ST abnormality Abnormal ECG Confirmed by Vikas Arredondo ([id number]), sound editor NICO ROBERTSON ([id number]) on 06/25/2025 1:07:36 PM Referred By: VIKTOR Confirmed By: Vikas Arredondo 06/25/25 1307 Date Vikas Arredondo MD CC: ABELINO VELEZ; Dr. Eloise Fernández MD; Dr. Gurwinder Zavala MD Signed Normal [facility] 12 Lead EKG [facility] [address] [place] [address] 12 Lead EKG 06/22/25 1822 MR#: [id number] Acct: [id number] Name: THERESA MARX Rep #: [id number] : 1965 59 From: Vikas Arredondo MD Attending Dr: Dr. Gurwinder Zavala MD Status : DIS KENNEDY Ordering Dr: Og Beard DO Date: 5 Location: [facility] Sex: F C Admitted: 06/22/25 Test Reason : CHEST PAIN Blood Pressure : */* mmHG Vent. Rate : 76 BPM Atrial Rate : 76 BPM P-R Int : 152 ms QRS Dur : 98 ms QT Int : 362 ms P-R-T Axes : 55 52 57 degrees QTcB Int : 407 ms Normal sinus rhythm Nonspecific ST abnormality Abnormal ECG Confirmed by Vikas Arredondo ([id number]), sound editor NICO ROBERTSON ([id number]) on 06/25/2025 1:07:18 PM Referred By: SUSANA Confirmed By: Vikas Arredondo 06/25/25 1307 Date Vikas Arredondo MD CC: ABELINO VELEZ; Dr. Og Beard DO; Dr. Gurwinder Zavala MD Signed Normal [facility] Basic Metabolic Profile (BMP )on 06-22-2025 BUN/CRE 14.9 RATIO Normal - [facility] Comment on above: Performed By: #### L 500.2500, L100.0100 #### [facility] [address] [place], [address] Calcium [Mass/Vol] 9.1 mg/dL Normal 7.6-11.0 [facility] Comment on above: Performed By: #### L 500.2500, L100.0100 #### [facility] [address] [place], [address] Chloride [Moles/Vol] 102 mmol/L Normal 98-108 [facility] Comment on above: Performed By: #### L 500.2500, L100.0100 #### [facility] [address] [place], [address] CO2 [Moles/Vol] 29.5 mmol/L Normal 21.0-32.0 [facility] Comment on above: Performed By: #### L 500.2500, L100.0100 #### [facility] [address] [place], [address] Creatinine [Mass/Vol] 0.81 mg/dL Normal 0.70-1.20 [facility] Comment on above: Performed By: #### L 500.2500, L100.0100 #### [facility] [address] [place], [address] ECRCL 71.55 ml/min Normal 50-250 [facility] Comment on above: Performed By: #### L 500.2500, L100.0100 #### [facility] [address] [place], [address] GAP 7 Normal 5-15 [facility] Comment on above: Performed By: #### L 500.2500, L100.0100 #### [facility] [address] [place], [address] GFR/1.73 sq M.predicted among non-blacks MDRD (S/P/Bld) [Vol rate/Area] 83 mL/min/{1.73_m2} Normal >60 [facility] Comment on above: Result Comment: mL/m in/1.73m2 CKD-EPI Creatinine Equation (2020) Performed By: #### L 500.2500, L100.0100 #### [facility] [address] [place], [address] Glucose [Mass/Vol] 98 mg/dL Normal 70-99 [facility] Comment on above: Performed By: #### L 500.2500, L100.0100 #### [facility] [address] [place], [address] Potassium [Moles/Vol] 4.2 mmol/L Normal 3.3-5.1 [facility] Comment on above: Performed By: #### L 500.2500, L100.0100 #### [facility] [address] [place], [address] Sodium [Moles/Vol] 139 mmol/L Normal 133-145 [facility] Comment on above: Performed By: #### L 500.2500, L100.0100 #### [facility] [address] [place], [address] Urea nitrogen [Mass/Vol] 12 mg/dL Normal 4-19 [facility] Comment on above: Performed By: #### L 500.2500, L100.0100 #### [facility] [address] [place], [address] Bedside Glucoseon 06-22-2025 FINGERSTICK GLU 96 mg/dL Normal 74-106 [facility] Comment on above: Result Comment: ANJALI MORRO OF PATIENT CARE PER NURSING PROTOCOL Performed By: #### L 300.4310, L300.3900 #### [facility] [address] [place], [address] CBC W/Diff, Automatedon 10-3 Absolute Lymph 1.05 X10 3/uL Normal 0.83-4.51 [facility] Comment on above: Performed By: #### L 500.2500, L100.0100 #### [facility] [address] [place], [address] Absolute Neut 5.9 X10 3/uL Normal 2.0-7.7 [facility] Comment on above: Performed By: #### L 500.2500, L100.0100 #### [facility] [address] [place], [address] Basophils/100 WBC (Bld) 0.5 % Normal 0-1 [facility] Comment on above: Performed By: #### L 500.2500, L100.0100 #### [facility] [address] [place], [address] Eosinophils/100 WBC (Bld) 2.3 % Normal 0-5 [facility] Comment on above: Performed By: #### L 500.2500, L100.0100 #### [facility] [address] [place], [address] Erythrocyte distribution width (RBC) [Ratio] 12.9 % Normal 11.6-14.6 [facility] Comment on above: Performed By: #### L 500.2500, L100.0100 #### [facility] [address] [place], [address] Hematocrit (Bld) [Volume fraction] 38.2 % Normal 37-47 [facility] Comment on above: Performed By: #### L 500.2500, L100.0100 #### [facility] [address] [place], [address] Hemoglobin (Bld) [Mass/Vol] 12.7 g/dL Normal 12.0-15.0 [facility] Comment on above: Performed By: #### L 500.2500, L100.0100 #### [facility] [address] [place], [address] IG% 0.300 Normal 0.0-0.9 [facility] Comment on above: Result Comment: IG% - Immature Granulocytes (promyelocytes, myelocytes and metamyelocytes) > 1% indicates that a LEFT SHIFT is Present. Performed By: #### L 500.2500, L100.0100 #### [facility] [address] [place], [address] Lymphocytes/100 WBC (Bld) 13.7 % Low 19-41 [facility] Comment on above: Performed By: #### L 500.2500, L100.0100 #### [facility] [address] [place], [address] MCH (RBC) [Entitic mass] 28.5 pg Normal 27.0-32.0 [facility] Comment on above: Performed By: #### L 500.2500, L100.0100 #### [facility] [address] [place], [address] MCHC (RBC) [Mass/Vol] 33.2 g/dL Normal 32-36 [facility] Comment on above: Performed By: #### L 500.2500, L100.0100 #### [facility] [place], [address] MCV (RBC) [Entitic vol] 85.8 fL Normal 81-99 [facility] Comment on above: Performed By: #### L 500.2500, L100.0100 #### [facility] [address] [place], [address] Monocytes/100 WBC (Bld) 6.5 % Normal 0-10 [facility] Comment on above: Performed By: #### L 500.2500, L100.0100 #### [facility] [address] [place], [address] Neutrophils/100 WBC (Bld) 76.7 % High 47-70 [facility] Comment on above: Performed By: #### L 500.2500, L100.0100 #### [facility] [address] [place], [address] Nucleated RBC (Bld) [#/Vol] 0 10*3/uL Normal 0-5 [facility] Comment on above: Performed By: #### L 500.2500, L100.0100 #### [facility] [address] [place], [address] Platelet mean volume (Bld) [Entitic vol] 10.6 fL Normal 6.2-12.0 [facility] Comment on above: Performed By: #### L 500.2500, L100.0100 #### [facility] [address] [place], [address] Platelets (Bld) [#/Vol] 131 10*3/uL Low 150-450 [facility] Comment on above: Performed By: #### L 500.2500, L100.0100 #### [facility] [address] [place], [address] RBC (Bld) [#/Vol] 4.45 10*6/uL Normal 4.2-5.4 [facility] Comment on above: Performed By: #### L 500.2500, L100.0100 #### [facility] [address] [place], [address] RDW SD 40.4 fl Normal 35.1-43.9 [facility] Comment on above: Performed By: #### L 500.2500, L100.0100 #### [facility] [address] [place], [address] WBC (Bld) [#/Vol] 7.7 10*3/uL Normal 4.4-11.0 [facility] Comment on above: Performed By: #### L 500.2500, L100.0100 #### [facility] [address] [place], [address] CNOVon 06-22-2025 CNOV Office Visit (WOUCA) THERESA MARX ([id number]) 1965 F Date Time Provider Department 06/22/25 5:45 PM RONNY BHATT During your visit today, we recorded the following information about you: Temperature Pulse Respiration Blood pressure 97.5 degrees 77/minute 18/minute 179/84 Weight 70 kg Ronny Bhatt MD 06/22/2025 6:17 PM Signed [facility] Subjective Theresa Marx is a 59 year old female. Patient presents with: Cough: Chest congestion, nasal congestion, runny nose, productive cough, green thick mucous, Chest pressure and sharpness in mid chest, has been consistent had sharp pain x 20 mins Chest pain: Duration: Pain started about 2 hours ago Location: Lower chest retrosternal Character: Initially was intense stabbing pain which lasted 20 to 30 minutes. It has diminished to a constant pressure now like someone is pushing on her chest. Radiation: No radiation to the arm. Aggravating: Not changed by moving, coughing, or breathing Relieving: Nothing Pain relievers: No recent symptom medication Associated: Viral URI the last 3 days including nasal congestion, copious nasal drainage, and cough. She had sweating last night. Pertinent negatives: Denies headache, sinus pain, fever, shortness of breath, wheezing, dizziness, palpitations The history is provided by the patient. Cough Review of Systems Respiratory: Positive for cough. Objective BP 179/84 Pulse 77 Temp 36.4 ?C (97.5 ?F) Resp 18 Wt 70 kg (154 lb 5.2 oz) SpO2 98% Last 2 Encounter BP Readings: Date: BP: 06/22/2025 179/84 04/29/2025 162/81 Physical Exam Constitutional: General: She is not in acute distress. Appearance: She is ill-appearing (Mildly ill-appearing). Comments: Accompanied by her daughter PHILLY: Right Ear: Tympanic membrane and ear canal normal. Left Ear: Tympanic membrane and ear canal normal. Nose: Congestion present. Right Sinus: No maxillary sinus tenderness or frontal sinus tenderness. Left Sinus: No maxillary sinus tenderness or frontal sinus tenderness. Mouth/Throat: Mouth: Mucous membranes are moist. Pharynx: No oropharyngeal exudate or posterior oropharyngeal erythema. Eyes: Extraocular Movements: Extraocular movements intact. Conjunctiva/sclera: Conjunctivae normal. Pupils: Pupils are equal, round, and reactive to light. Cardiovascular: Rate and Rhythm: Normal rate and regular rhythm. Heart sounds: No murmur heard. Pulmonary: Effort: No respiratory distress. Breath sounds: No wheezing, rhonchi or rales. Chest: Chest wall: No tenderness. Musculoskeletal: Cervical back: Neck supple. Lymphadenopathy: Cervical: No cervical adenopathy. Neurological: General: No focal deficit present. Mental Status: She is alert and oriented to person, place, and time. Gait: Gait normal. {ASSESSMENT/PLAN: 1. Chest pain, unspecified type - ICD9: 786.50, ICD10: R07.9 (primary diagnosis) Chest pain of unclear etiology, patient with significant risk factor(s) of family history of early coronary heart disease, Diabetes Mellitus. - Referred to ED, will be taken by family. 2. URI, acute - ICD9: 465.9, ICD10: J06.9 Ronny Bhatt MD Differential Diagnoses - Acute coronary artery disease - Aortic dissection - Pneumonia - GERD - Pulmonary embolism - Pleuritis is less likely for the following reason(s): No reproducible pain with breathing or movement - Costochondritis is less likely for the following reason(s): No pain with palpation or movement Procedures Allergies As of Date: 06/22/2025 (No Known Allergies) Date Reviewed: 06/22/2025 Reviewed by: Patience Blake LPN - Fully Assessed Reason for Visit: Cough [28] Cmt: Chest congestion, nasal congestion, runny nose, productive cough, green thick mucous, Chest pressure and sharpness in mid chest, has been consistent had sharp pain x 20 mins Primary Visit Diagnosis:Chest pain, unspecified type [R07.9] Other Visit Diagnosis:URI, acute [J06.9] Prescriptions as of 06/22/2025 - FRAMED KARIE 3 PLUS SENSOR padmini - buPROPion XL (WELLBUTRIN XL) 150 mg 24 hr tablet Take 150 mg by mouth once daily. - pioglitazone (ACTOS) 15 mg tablet Take 15 mg by mouth once daily. - OZEMPIC 2 mg/dose (8 mg/3 mL) pen injector Inject 2 mg subcutaneously one time a week. - venlafaxine ER (EFFEXOR XR) 75 mg 24 hr capsule Take 75 mg by mouth once daily. Problem List As Of Date: 06/22/2025 (None) Medications Discontinued During This Encounter Prescriptions - ketoconazole 2 % TOPICAL Crea (Discontinued) bid to cm past involved--continue at least until phone f/u at 2 months even if looks clear sooner - VITAMIN E ACETATE, BULK, MISC (Discontinued) 800 mg once daily. - predniSONE (DELTASONE) 10 mg tablet (Discontinued) Take 4 tabs daily for 3 days, then 2 tabs daily for 3 days, then 1 (more content not included)... Normal [facility] Chest PA and Lateralon 06-22 Chest PA and Lateral [facility] Imaging Services [address], [place] [id number] Chest PA and Lateral MR#: [id number] Acct: [id number] Name: THERESA MARX Rep #: [id number] : 1965 F 59 From: Vickey Preston MD PCP: ABELINO VELEZ Status: REG ER Study: Chest PA and Lateral Date of Exam: 06/22/25 Exam# [id number] Ordering Dr: Og Beard DO PROCEDURE: CHEST PA AND LATERAL 06/22/2025 REASON FOR EXAM: CHEST PAIN TECHNIQUE: Procedure Code: RADCXR Modality: DX Procedure: CHEST PA AND LATERAL COMPARISON: None. FINDINGS: Lungs/Pleura: Clear. No pneumothorax or pleural effusion. Heart/Mediastinum: Within normal limits. Bones/Soft tissues: Mild degenerative changes of the spine. Cholecystectomy surgical clips. RAD/Chest PA and Lateral IMPRESSION: No acute cardiopulmonary disease. Reading Location: [id number] CC: ABELINO VELEZ; Dr. Og Beard DO Networking Administrator: Signed Normal [facility] D-Dimer Quantitative (DVT/PE )on 06-22-2025 D-DIMER QUANT 0.51 FEU/ug/m Invalid Interpretation Code 0.27-0.49 [facility] Comment on above: Result Comment: D-Di vicki ELEVATED (>0.49): Additional studies and clinical assessments are indicated to conclude diagnosis of: Deep Vein Thrombosis (DVT) or Pulmonary Embolism (PE) CRITICAL VALUE CALLED TO NEERU ANAID 06/22/252001 Gwen Berger. RESULTS READ BACK BY SAME. Performed By: #### L 500.2500, L100.0100 #### [facility] [address] [place], [address] Echo Completeon 06-22-2025 Echo Complete [facility] [address] [place] [address] Echo Complete 06/23/25 0844 MR#: [id number] Acct: [id number] Name: THERESA MARX Rep #: [id number] : 1965 59 From: Jack Shelton MD Attending Dr: Dr. Gurwinder Zavala MD Status : ADM KENNEDY Ordering Dr: Eloise Fernández MD Date: 06/22/25 Location: PCU Sex: F C Admitted: 06/22/25 Reason For Study : NSTEMI Procedure This was a 2D Doppler, Color Flow transthoracic echocardiogram. Myocardial strain analysis was performed in this exam to aid in the assessment of cardiac function. Exam performed portable in patient room. Left Ventricle Normal LV size. The left ventricular ejection fraction is 55 %. Mild segmental systolic dysfunction (see wall motion). Basal inferoseptal: Hypokinetic. Infero-Basal: Severely Hypokinetic. Basal anteroseptal: Hypokinetic. There are regional wall motion abnormalities as specified. Right Ventricle Normal RV size. Normal systolic function. Atria Normal left atrium. Normal right atrium. Mitral Valve Normal mitral valve. Mild (1+) eccentric mitral valve insufficiency. Tricuspid Valve Normal tricuspid valve. Mild (1+) tricuspid valve insufficiency. Pulmonary artery systolic pressure is 28 mmHg. Aortic Valve Trisinus/trileaflet aortic valve. Mild focal aortic valve calcification. Pulmonic Valve Normal pulmonic valve. Great Vessels Normal aortic root. The pulmonary artery is normal size. Inferior vena cava collapse with respiration. Pericardium/Pleural No pericardial effusion. MMode/2D Measurements Calculations LVIDd: 4.5 cm IVSd: 0.87 cm Ao root diam: 2.6 cm LVIDs: 3.7 cm LVPWd: 0.86 cm RVDd: 3.1 cm FS: 18.5 % LAV(MOD-bp): 52.1 ml LVAd ap4: 27.0 cm2 SV(MOD-sp4): 44.3 ml LAV(MOD-bp) Indexed: 29.5 ml/m2 LVLd ap4: 7.6 cm SI(MOD-sp4): 25.0 ml/m2 LAV(MOD-sp2): 61.4 ml EDV(MOD-sp4): 78.6 ml LAV(MOD-sp4): 39.4 ml EDV(sp4-el): 82.0 ml LVAs ap4: 15.8 cm2 LVLs ap4: 6.5 cm ESV(MOD-sp4): 34.2 ml ESV(sp4-el): 32.5 ml EF(MOD-sp4): 56.4 % EF(sp4-el): 60.4 % SV(sp4-el): 49.6 ml LA A4 area: 16.0 cm2 LA dimension(2D): 3.9 cm RA A4 area: 14.4 cm2 TAPSE: 2.1 cm Time Measurements MV dec time: 0.20 sec Doppler Measurements Calculations MV E max andre: 76.3 cm/sec Lat Peak E' Andre: 11.5 cm/sec Med Peak E' Andre: 8.1 cm/sec MV A max andre: 68.0 cm/sec E/E' lat: 6.7 E/E' med: 9.5 MV E/A: 1.1 LV V1 max: 102.7 cm/sec PA V2 max: 80.6 cm/sec MV dec slope: 372.5 cm/sec2 LV V1 max P.2 mmHg TR max andre: 251.4 cm/sec TR max P.3 mmHg ECHO/Echo Complete Interpretation Summary Normal LV size. The left ventricular ejection fraction is 55 %. Mild segmental systolic dysfunction (see wall motion). Mild (1+) eccentric mitral valve insufficiency. Mild (1+) tricuspid valve insufficiency. The global longitudinal strain is normal. The global longitudinal strain = -18.8 % (normal). Ordering Physician: Eloise Fernández Performed By: Irina Merritt, HERBERT, RVT 06/23/2538 Date Jack Shelton MD CC: ABELINO VELEZ; Dr. Eloise Fernández MD; Dr. Gurwinder Zavala MD Date Dictated: 06/23/25843 Date Transcribed: 06/23/25936 Networking Administrator: Signed Normal [facility] Emergency Department Summary on 06-22-2025 Emergency Department Summary [facility] Medical Records Department [address] [place] [id number] Emergency Department Summary 06/22/25 MR#: [id number] Acct: [id number] Name: THERESA MARX Rep #: [id number] : 1965 59 From: Og Beard DO PCP: ABELINO VELEZ Status:ADM KENNEDY Location: [place] [address] HPI History of Present Illness Chief Complaint: Chest Pain Narrative Narrative: Chief complaint and HPI: 59-year-old female with past medical history of anxiety, depression, DM on Ozempic presents for evaluation of chest pain. Patient states over the past 3 to 4 days she has been under the weather with a URI. States she has had a lot of congestion. Patient states about 2 hours ago she developed sharp chest pain. Pain has improved however still present. She went to an urgent care center to the emergency department. Denies any fever, chills, shortness of breath, abdominal pain, nausea, vomiting. Review of systems: See HPI Medications: As listed on the chart Allergies: As listed on the chart PFSH: Per chart Vital signs: As listed on the chart. Reviewed. Physical exam: Gen: A O x3, NAD Head: Normocephalic, atraumatic Eyes: No sclera icterus, conjunctiva clear ENT: Moist mucous membranes, nasal congestion+ Neck: Trachea midline CV: RRR, no murmurs, no peripheral edema Resp: Lungs CTA BL, no w/r/c GI: Abd soft, non-distended, non-tender, no r/r/g Musc: Moves all extremities Skin: Warm, dry Psych: Cooperative, appropriate mood and affect PFSH PFSH Medical History (Updated 06/22/25 @ 21:[address] Eloise Fernández MD) Former tobacco use Anxiety and depression Diabetes Home Medications ???Medication ???Instructions ???Recorded ???Last Taken ???Type bupropion HCl 150 mg 24 hr tablet, 150 mg PO DAILY 06/22/25 5 History extended release pioglitazone 15 mg tablet 15 mg PO DAILY 06/22/25 Unknown Hi story venlafaxine 75 mg capsule,extended 75 mg PO DAILY 06/22/25 06/22/25 History release 24 hr Allergy/AdvReac Type Severity Reaction Status Date / Time No Known Allergies Allergy Verified 06/22/25 18:13 Surgical History (Updated 06/22/25 @ 19:07 by Milka Farris) Hx of bladder repair surgery History of hysterectomy History of cholecystectomy Social History Smoking Status: Former smoker EXAM Physical Exam Const Vital Signs: 06/22/25 18:13 06/22/25 19:03 06/22/25 19:12 Temperature 96.5 F L Temperature Source Oral Pulse Rate 80 80 Respiratory Rate 18 18 Respiratory Effort Normal Blood Pressure 167/75 H 143/84 H Blood Pressure Mean 105 103 Pulse Ox 99 99 Oxygen Delivery Method Room Air Room Air 06/22/25 20:00 06/22/25 21:00 06/22/25 22:00 Temperature Temperature Source Pulse Rate 79 86 81 Respiratory Rate 14 21 H 23 H Respiratory Effort Blood Pressure 145/74 H 154/71 H 152/82 H Blood Pressure Mean 97 98 105 Pulse Ox 99 99 99 Oxygen Delivery Method Room Air Room Air Room Air MDM MDM MDM Narrative Medical decision making narrative: 59-year-old female with past medical history of anxiety, depression, DM on Ozempic presents for evaluation of chest pain. Patient states over the past 3 to 4 days she has been under the weather with a URI. States she has had a lot of congestion. Patient states about 2 hours ago she developed sharp chest pain. Pain has improved however still present. She went to an urgent care center to the emergency department. On presentation, patient no acute distress. Aspirin ordered. Chest pain workup ordered. Differential diagnosis includes but is not limited to pleurisy, pneumonia, PE, ACS. CBC without leukocytosis or anemia. Patient has thrombocytopenia of 131. I do not have previous labs to compare to. D-dimer is 0.51 however this is negative per age-adjusted. BMP unremarkable. Troponin 29. Troponin 60. On reevaluation, patient states her chest pain originally resolved but is now reoccurring. Given that delta is 31. Patient will warrant admission for ACS workup. Will get repeat EKG. She was updated of all the results and confirmed understanding of the plan. I spoke with the hospitalist service, Dr. Fernández who accepted admission. EKG: Interpreted by me/EM physician: EKG shows normal sinus rhythm with nonspecific ST changes. Heart rate 76. No ST elevation Diagnostic: Interpreted by me/EM physician: Chest x-ray not pneumonia, effusion, cardiomegaly, pneumothorax. Radiology in agreement. Impression: 1. Chest pain, ACS rule out 2. Elevated troponin 3. Thrombocytopenia Lab Data Labs: Laboratory Results - last 24 hr 06/22/25 06/22/25 18:35 20:35 WBC 7.7 RBC 4.45 Hgb 12.7 Hct 38.2 MCV 85.8 MCH 28.5 MCHC 33.2 RDW Std Deviation 40.4 RDW Coeff of Qasim 12.9 Plt C (more content not included)... Normal [facility] H AND P Exam - [facility] 06-22-2025 H&P Exam - Hospitalist [facility] Medical Records Department [address] [place] [address] H P Exam - Hospitalist 06/22/25 2157 MR#: [id number] Acct: [id number] Name: THERESA MARX Rep #: [id number] : 1965 59 From: Eloise Fernández MD PCP: ABELINO VELEZ Status:ADM KENNEDY Location: [place] [address] HPI - General General Date of Admission: 06/22/25 Date of Service: 06/22/25 Chief Complaint: Recent URI, chest pain. HPI Narrative The patient is a 59 y/o F w/ PMHx: Diabetes mellitus type II, Former tobacco use, Anxiety and Depression who presents to the [facility] ED on 06/22/25 with history of 3 to 4 days of general fatigue, malaise and URI type symptoms with headache, congestion, rhinorrhea then with onset on day of ED presentation at approximately 3:30 in the afternoon midsternal chest discomfort initially more sharp rated 4-6 out of 10 in severity eventually subsiding into a more dull aching 2-3 out of 10 in severity however this was constant and more pressure-like in nature prompting eventual ED evaluation with no associated dyspnea, diaphoresis, nausea or emesis. In the ED patient notes that she had continued to improve further however she did get up to use the restroom the ED and did have an increase in the discomforts with more sharpin addition to pressure-like sensation but is now improving given her rest. Patient notes the discomfort occurred at rest. Patient notes that everyone in the household has had an upper respiratory infection. Workup in the ED included T96.5, heart rate 80, BP 167/75, respiratory 18, 99% on room air with most recent repeat vitals heart rate 86, BP 154/71, respiratory rate 21, 99% on room air, CBC with WBC 7.7, hemoglobin 12.7, platelet 131 without marked shift, D-dimer 0.51 less normal for age, BUN/Cr 12/0.1, GFR 83, initial troponin 29 with repeat delta 60, chest x-ray with no acute cardiopulmonary findings, EKG with sinus rhythm with nonspecific ST changes with no acute evidence of ischemia. In the ED patient ministered full- strength aspirin therapy. [facility] Medical History Former tobacco use Anxiety and depression Diabetes Home Medications ???Medication ???Instructions ???Recorded ???Last Taken ???Type bupropion HCl 150 mg 24 hr tablet, 150 mg PO DAILY 06/22/25 5 History extended release pioglitazone 15 mg tablet 15 mg PO DAILY 06/22/25 Unknown Hi story venlafaxine 75 mg capsule,extended 75 mg PO DAILY 06/22/25 06/22/25 History release 24 hr Allergy/AdvReac Type Severity Reaction Status Date / Time No Known Allergies Allergy Verified 06/22/25 18:13 Family History (Updated 06/22/25 @ 22:[address] Eloise Fernández MD) Mother CVA (cerebral vascular accident) Hypertension HLD (hyperlipidemia) Dementia Father Dementia Hypertension HLD (hyperlipidemia) CVA (cerebral vascular accident) CAD (coronary artery disease) Myocardial infarction Surgical History Hx of bladder repair surgery History of hysterectomy History of cholecystectomy Social History (Updated 06/22/25 @ 22:[address] Eloise Fernández MD) household members: other details: Lives in [place], visits her daughter and family. Smoking Status: Former smoker how long ago did patient quit smoking: Quit 2006, started age 22, smoked 1/2 intermittently until quit. alcohol intake: never substance use type: does not use ROS ROS Narrative Admission Review of Systems: CONSTITUTIONAL: No weight loss, fever, chills, + weakness or fatigue. HEENT: + Congestion, rhinorrhea with URI, headache. Eyes: No visual loss, blurred vision, double vision or yellow sclerae. Ears, Nose, Throat: No hearing loss, sneezing, sore throat. SKIN: No rash or itching, lesions, wounds. CARDIOVASCULAR: + Chest pain/pressure. No palpitations, edema, orthopnea, syncopal events. RESPIRATORY: No shortness of breath, cough or sputum, wheezing, hemoptysis. GASTROINTESTINAL: No anorexia, nausea, vomiting or diarrhea, abdominal pain, melena, BRBPR. GENITOURINARY: No dysuria, frequency, urgency or retention. NEUROLOGICAL: No headache, dizziness, syncope, paralysis, ataxia, numbness or tingling in the extremities, focal weakness, change in bowel or bladder control, seizure. MUSCULOSKELETAL: + muscle, back pain, joint pain or stiffness. HEMATOLOGIC: No anemia, bleeding or bruising. LYMPHATICS: No enlarged nodes. No history of splenectomy. PSYCHIATRIC: + History of anxiety and depression. ENDOCRINOLOGIC: No reports of sweating, cold or heat intolerance. No polyuria or polydipsia. ALLERGIES: No history of asthma, hives, eczema or rhinitis. Vital Signs Vital Signs Vital Signs: 06/22/25 18:13 06/22/25 19:03 06/22/25 19:12 Temperature 96.5 F L Temperature Source Oral Pu (more content not included)... Normal [facility] L501.4021on 06-22-2025 Trop T High Sen 29 ng/L High <=14 [facility] Comment on above: Performed By: #### L 500.2500, L100.0100 #### [facility] [address] [place], [address] M100.678on 06-22-2025 M100.678 Pending SARS-CoV-2 (COVID 19) Negative INFLUENZA A Negative INFLUENZA B Negative RSV PCR Negative Normal [facility] Comment on above: Performed By: #### L 300.4310, L300.3900 #### [facility] [address] [place], [address] Magnesiumon 06-22-2025 Magnesium [Mass/Vol] 2.1 mg/dL Normal 1.5-2.2 [facility] Comment on above: Order Comment: Comme nts: may add to ED labs Performed By: #### L 100.0100 #### [facility] [address] [place], [address] Partial Thromboplast Timeon 06-22-2025 aPTT Coag (Bld) [Time] 33.4 s Normal 24.1-36.2 [facility] Comment on above: Order Comment: Comme nts: If not done in prior 24 hours Performed By: #### L 300.4310, L300.3900 #### [facility] [address] [place], [address] Prothrombin Time w/INRon INR Coag (PPP) [Relative time] 1.1 {INR} Normal [facility] Comment on above: Order Comment: Comme nts: If not done in prior 24 hours Performed By: #### L 300.4310, L300.3900 #### [facility] [address] [place], [address] PT Coag (PPP) [Time] 14.8 s Normal 11.7-14.9 [facility] Comment on above: Order Comment: Comme nts: If not done in prior 24 hours Performed By: #### L 300.4310, L300.3900 #### [facility] [address] [place], [place], [address] Troponin T HS 2 HRon 025 Trop T High Sen 60 ng/L Invalid Interpretation Code <=14 [facility] Comment on above: Result Comment: Crit ical Result(s) Called EMILLER at: 2112 by: [employer]??Results read back by same. Performed By: #### L 3004310, L300.3900 #### [facility] [address] [place], [place], [address] Troponin T HS 4 HRon 025 Trop T High Sen 123 ng/L Invalid Interpretation Code <=14 [facility] Comment on above: Result Comment: Crit ical Result(s) Called EAFFOLTER at:2313 by: [employer]??Results read back by same. Performed By: #### L 3004311, L300.3900 #### [facility] [address] [place], [place], [address] CNOVon 04-29-2025 CNOV Office Visit (WOUCA) THERESA MARX ([id number]) 1965 F Date Time Provider Department 04/29/25 1:45 PM ZAIRA ROSS During your visit today, we recorded the following information about you: Temperature Pulse Respiration Blood pressure 98.5 degrees 86/minute 22/minute 162/81 Weight 72 kg Zaira Ross APRN.[facility] 04/29/2025 2:07 PM Signed [facility] Subjective Theresa MARX is a 59 year old female. Patient presents with: Rash: All over body and spreading and itchy, on face, left eye swelling, x 2 days worsening Rash The patient is a 59-year-old female with a history of diabetes mellitus, presenting for evaluation of a pruritic rash. Pruritic Rash: - Onset of pruritic rash, suspected to be due to poison urfino exposure. - Rash is vesicular and diffuse, affecting multiple areas including the ears, face, and perianal region. - Noted swelling of the eyes upon waking this morning. - Denies vision changes or dysphagia. Diabetes Mellitus: - Blood glucose level reportedly 105 mg/dL. - Previously on metformin and a higher dose of pioglitazone; currently managing with 15 mg of pioglitazone. - Monitoring blood glucose levels regularly. Review of Systems Skin: Positive for rash. Eyes: (+) eyelid swelling, (-) vision changes Ears/Nose/Mouth/Throa t: (+) ear pruritus Gastrointestinal: (-) dysphagia Skin: (+) diffuse pruritic vesicular rash, (+) perianal pruritus Objective BP 162/81 Pulse 86 Temp 36.9 ?C (98.5 ?F) Resp 22 Wt 72 kg (158 lb 11.7 oz) SpO2 99% Physical Exam General: No acute distress. HEENT: Vesicular rash on face, periorbital edema noted. Skin: Vesicular rash noted on face and neck. No signs of infection. 1. Contact dermatitis due to plants, except food, unspecified contact dermatitis type (L25.5) - Acute, diffuse vesicular rash with pruritus and periorbital edema consistent with plant-induced contact dermatitis. - Start prednisone 9-day taper. - Educated patient on potential for elevated blood glucose with steroid use; advised close monitoring of blood glucose levels during treatment. and Recording using ambient [employer] software for draft documentation of the visit was discussed with the patient/authorized human resources representative; all questions welcomed and answered. Patient/authorized human resources representative agreed to proceed { History and Record Review External record(s) reviewed: no prior records. Disposition The patient was discharged. Procedures Allergies As of Date: 04/29/2025 (No Known Allergies) Date Reviewed: 04/29/2025 Reviewed by: Patience Blake LPN - Fully Assessed Reason for Visit: Rash [1087] Cmt: All over body and spreading and itchy, on face, left eye swelling, x 2 days worsening Primary Visit Diagnosis:Contact dermatitis due to plants, except food, unspecified contact dermatitis type [L25.5] Order(s):predniSONE (DELTASONE) 10 mg tabletTake 4 tabs daily for 3 days, then 2 tabs daily for 3 days, then 1 tab daily for 3 days with food.Disp: 21 tabletRfl: 0 Prescriptions as of 04/29/2025 - FREESTYLE KARIE 3 PLUS SENSOR padmini - buPROPion XL (WELLBUTRIN XL) 150 mg 24 hr tablet Take 150 mg by mouth once daily. - pioglitazone (ACTOS) 15 mg tablet Take 15 mg by mouth once daily. - OZEMPIC 2 mg/dose (8 mg/3 mL) pen injector Inject 2 mg subcutaneously one time a week. - venlafaxine ER (EFFEXOR XR) 75 mg 24 hr capsule Take 75 mg by mouth once daily. - VITAMIN E ACETATE, BULK, MISC 800 mg once daily. - predniSONE (DELTASONE) 10 mg tablet Take 4 tabs daily for 3 days, then 2 tabs daily for 3 days, then 1 tab daily for 3 days with food. - ketoconazole 2 % TOPICAL Crea bid to cm past involved--continue at least until phone f/u at 2 months even if looks clear sooner Problem List As Of Date: 04/29/2025 (None) Prescriptions ordered this encounter Disp Refills Start End PREDNISONE 10 MG TABLET 21 t* 0 04/29/2025 Sig: Take 4 tabs daily for 3 days, then 2 tabs daily for 3 days, then 1 tab daily for 3 days with food. Encounter Status:Closed by ZAIRA ROSS on 04/29/25 Normal [facility] Vital Signs Date Time Vital Sign Value Performing Clinician Faci lity 06-26-2025 11:13-0500 Body temperature 98.01 [degF] Barbara Hendricks MD Work Phone: [facility] 06-26-2025 11:13-0500 Diastolic blood pressure 64 mm[Hg] Barbara Hendricks MD Work Phone: [facility] 06-26-2025 11:13-0500 Heart rate 79 /min Barbara Hendricks MD Work Phone: [facility] 06-26-2025 11:13-0500 Respiratory rate 14 /min Barbara Hendricks MD Work Phone: [facility] 06-26-2025 11:13-0500 SaO2% (BldA) [Mass fraction] 99 % Barbara Hendricks MD Work Phone: [facility] 06-26-2025 11:13-0500 Systolic blood pressure 114 mm[Hg] Barbara Hendricks MD Work Phone: [facility] 06-26-2025 04:22-0500 Body mass index (BMI) [Ratio] 24.93 kg/m2 Barbara Hendricks MD Work Phone: [facility] 06-26-2025 04:22-0500 Body weight 68.99 kg Barbara Hendricks MD Work Phone: [facility] 06-25-2025 08:33-0500 Body height 166.4 cm Barbara Hendricks MD Work Phone: [facility] 04-29-2025 13:56-0400 Body temperature 98.49 [degF] Zaira Ross APRN.MAINTAINER C[employer]AL [employer] Work Phone: [facility] 04-29-2025 13:56-0400 Body weight 72 kg Zaira Ross APRN.MAINTAINER CENTRAL OFFICE Work Phone: [facility] 04-29-2025 13:56-0400 Diastolic blood pressure 81 mm[Hg] Zaira Ross APRN.MAINTAINER CENTRAL OFF[employer] Work Phone: [facility] 04-29-2025 13:56-0400 Heart rate 86 /min Zaira Ross APRN.MAINTAINER CENTRAL [employer] Work Phone: [facility] 04-29-2025 13:56-0400 Respiratory rate 22 /min Zaira Ross APRN.MAINTAINER C[employer]AL [employer] Work Phone: [facility] 04-29-2025 13:56-0400 SaO2% (BldA) [Mass fraction] 99 % Zaira Ross APRN.MAINTAINER [employer]AL [employer] Work Phone: [facility] 04-29-2025 13:56-0400 Systolic blood pressure 162 mm[Hg] Zaira Ross APRN.MAINTAINER [employer] Work Phone: [facility] Encounters Encounter Date Encounter Type Care Provider Facility Start: 06-23-2025 End: 06-26-2025 Evaluation and management of inpatient Barbara Hendricks MD Work Phone: [facility] Cardiac Vascular Progressive Care Unit P[facility] 1C Comment on above: NSTEMI (non-ST eleva grady myocardial infarction) (HCC) (Primary Dx); S/P coronary artery stent placement Start: 06-22-2025 End: 06-23-2025 ambulatory Eloise Alex Jolene Facility:[facility] Start: 06-22-2025 End: 06-22-2025 ambulatory RIAN VAL RAMAKRISHNASHONNA BUCK Facility:[facility] Start: 04-29-2025 End: 04-29-2025 ambulatory ZAIRA ROSS Facility:[facility] Start: 04-29-2025 End: 04-29-2025 Patient encounter procedure Zaira Ross APRN.MAINTAINER C[employer]TRAL [employer] Work Phone: [facility] Comment on above: Contact dermatitis d ue to plants, except food, unspecified contact dermatitis type (Primary Dx) Procedures Date Procedure Procedure Detail Performing Clinician Start: 06-26-2025 Glucose quantitative blood xcpt reagent strip Bi Mejia MD Work Phone: Start: 06-26-2025 Comprehensive metabolic panel Anton Arteaga MD Work Phone: Start: 06-25-2025 Glucose quantitative blood xcpt reagent strip Bi Mejia MD Work Phone: Start: 06-25-2025 Ecg routine ecg w/least 12 lds trcg only w/o i&r Brian Andrade MD Work Phone: Start: 06-25-2025 Cardiac catheterization study Brian Andrade MD Work Phone: Start: 06-25-2025 Percutaneous coronary intervention Brian Andrade MD Work Phone: Start: 06-25-2025 End: 06-25-2025 POCT ACT Bi Mejia MD Work Phone: Start: 06-25-2025 Echo tthrc r-t 2d w/wom-mode compl spec&colr d Yaritza Donovan DO Work Phone: Start: 06-25-2025 Thromboplastin time partial plasma/whole blood Yaritza Moni Donovan DO Work Phone: Start: 06-25-2025 Glucose quantitative blood xcpt reagent strip Barbara Hendricks MD Work Phone: Start: 06-25-2025 Comprehensive metabolic panel Yaritza Donovan DO Work Phone: Start: 06-24-2025 End: 06-24-2025 Thromboplastin time partial plasma/whole blood Yaritza Moni Donovan DO Work Phone: Start: 06-24-2025 Glucose quantitative blood xcpt reagent strip Barbara Hendricks MD Work Phone: Start: 06-24-2025 End: 06-24-2025 Thromboplastin time partial plasma/whole blood Yaritza Moni Donovan DO Work Phone: Start: 06-24-2025 Ecg routine ecg w/least 12 lds trcg only w/o i&r Derek Henry MD Work Phone: Start: 06-24-2025 Radiologic exam chest single view Derek Henry MD Work Phone: Start: 06-24-2025 Glucose quantitative blood xcpt reagent strip Barbara Hendricks MD Work Phone: Start: 06-24-2025 Comprehensive metabolic panel Yaritza Donovan DO Work Phone: Start: 06-23-2025 Assay of troponin quantitative Yaritza Moni Donovan DO Work Phone: Start: 06-23-2025 End: 06-23-2025 Comprehensive metabolic panel Yaritza Donovan DO Work Phone: Start: 06-23-2025 Lipid panel Yaritza Donovan DO Work Phone: Start: 06-23-2025 Ecg routine ecg w/least 12 lds trcg only w/o i&r Yaritza Moni Donovan DO Work Phone: Start: 06-23-2025 Lipid 1996 panel - Serum or Plasma Barbara Hendricks MD Work Phone: Start: 02-16-2022 Colonoscopy Zaira Ross APRN.[employer] Work Phone: History of placement of stent for coronary artery disease S/P coronary artery stent placement Barbara Hendricks MD Work Phone: History of placement of stent for coronary artery disease S/P coronary artery stent placement Barbara Hendricks MD Work Phone: Plan of Treatment Date Care Activity Detail Author Start: 11-13-2038 RSV Vaccine (1 - 1-d ose 75+ series) RSV Vaccine (1 - 1-dose 75+ series) [facility] Start: 06-23-2030 Lipid panel Lipid Panel [facility] Start: 06-23-2028 Diabetes mellitus screening Diabetes Screening [facility] Start: 09-25-2027 Screening for malign ant neoplasm of colon [facility] Start: 04-23-2025 COVID-19 Vaccine ( season) COVID-19 Vaccine ( season) [facility] Start: 04-23-2025 Influenza vaccination Influenza Vacc ine (#1) [facility] Start: 10-01-2024 Diabetes Screening Diabetes Screenin g [facility] Start: 08-23-2024 Medicare Advantage A nnual Wellness Visit Medicare Advantage Annual Wellness Visit [facility] Start: 2023 RSV Immunization for Adults (1 - Risk 60-74 years 1-dose series) RSV Immunization for Adults (1 - Risk 60-74 years 1-dose series) [facility] Start: 02-16-2023 Screening for malign ant neoplasm of colon Colonoscopy [facility] Start: 11-13-2013 Pneumococcal Vaccine : 50+ (1 of 1 - PCV) Pneumococcal Vaccine: 50+ (1 of 1 - PCV) [facility] Start: 11-13-2013 Shingrix Vaccine (1 of 2) Shingrix V accine (1 of 2) [facility] Start: 11-13-2013 Zoster Vaccines (1 of 2) Zoster Vacc nasima (1 of 2) [facility] Start: 11-13-2008 Lipid panel Lipid Screening [facility] Start: 11-13-2008 Screening for malign ant neoplasm of colon [facility] Start: 2003 Screening for malign ant neoplasm of breast [facility] Start: 11-13-1993 Screening for malign ant neoplasm of cervix [facility] Start: 11-13-1984 Screening for malign ant neoplasm of cervix [facility] Start: 11-13-1982 DTaP/Tdap/Td Vaccine s (1 - Tdap) DTaP/Tdap/Td Vaccines (1 - Tdap) [facility] Start: 11-13-1982 Pneumococcal Vaccine : 50+ Years (1 of 2 - PCV) Pneumococcal Vaccine: 50+ Years (1 of 2 - PCV) [facility] Start: 11-13-1982 Urine microalbumin profile DTaP,Tdap,Td Vaccine (1 - Tdap) [facility] Start: 11-13-1981 Anxiety Screening Anxiety Screening [facility] Start: 11-13-1981 Depression Screening Depression Scre [facility] Start: 11-13-1981 [facility]atitis [facility]: [facility] Depression Monitoring Depression Mon itoring [facility] Start: 11-13-1964 MMR Vaccines (1 of 1 - Standard series) MMR Vaccines (1 of 1 - Standard series) [facility] Start: 1965 Screening for malign ant neoplasm of colon [facility] Payers Date Payer Category Payer Self-pay 2025 Medicare HMO [employer] MED[employer] [id number] 2025 Private Health Insurance [id number] 2024 Private Health Insurance [employer] [place] [id number] 2024 Unknown [id number] Unknown [id number] Unknown [id number] Unknown [id number] Unknown [id number] Social History Date Type Detail Facility Start: 04-29-2025 End: 06-23-2025 Tobacco smoking status CAIS Never smoked tobacco [facility] Start: 04-29-2025 End: 06-23-2025 Tobacco use and exposure Smokeless tobacco non-user [facility] Start: 04-29-2025 End: 06-25-2025 History of Social function [facility] Start: 04-29-2025 End: 06-25-2025 Tobacco use panel [facility] Start: 1965 Sex assigned at Not on file [facility] Start: 07-24-2012 Sex Female [facility] Start: 06-26-2025 Alcoholic beverage intake Life time non-drinker (finding) [employer] Has the [employer], or [employer] threatened to shut off services in your home in past 12Mo No [facility] Are you now , , , , never or living with a partner? [facility] How often to you hav e a drink containing alcohol? Never [facility] (I/We) worried demond er (my/our) food would run out before (I/we) got money to buy more. Never true [facility] Start: 1965 Sex assigned at Female [facility] Start: 06-23-2025 Sex Female (finding) [facility] Start: 06-23-2025 Gender identity Identifies as female gender (finding) [facility] Start: 06-23-2025 Sexual orientation Heterosexual (swati matson) [facility] Medical Equipment Procedure Code Equipment Code Equipment Origin al Text Equipment Identifier Dates Stent Cor [id number] - [id number] Start: 06-25-2025 Functional Status Date Assessment Result Facility 06-23-2025 Total score [AUDIT-C] 0 06/23/20 25 10:24 PM EDLaura Beasley RN [facility] Clinical Notes 04-29-2025 to 06-26-2025 Anton Arteaga MD - 06/26/2025 1:40 PM ESTPafara Mahoneyase - 06/26/2025 10:24 AM ESTPafara Mahoneyase - 06/26/2025 10:24 AM ESTSusan Amandaar - 06/25/2025 8:05 AM ESTDischarge Instructions Note Date & Type Note Facility 06-26-2025 Note Attestation signed by Bi Mejia MD at 06/26/2025 3:43 PM The patient was seen and examined on rounds today. Independent history and physical exam were obtained. The assessment plan were made together. We spent greater than 30 minutes executing this discharge. [facility] [place] [facility] Discharge Summary Name: Theresa Marx Date of : 1965 Date of Admission: 06/23/2025 Date of Discharge: 06/26/2025 Discharge Attending: Anton Arteaga MD Primary Care Provider: No primary care provider on file. Type of Admission: Admission Code Status: Full Code Reason for Admission NSTEMI Discharge Diagnoses: Coronary artery disease Medical History[1] Surgical History[2] Family History[3] Social History[4] Hospital Course Theresa Marx is a 59-year-old female with a history of T2DM, HTN, prior tobacco use, MDD/anxiety who presented to [facility] on 06/22/2025 with acute onset chest pain found to have obstructive CAD treated with PCI of her LMCA and ostial/proximal to mid LAD. Initial coronary angiogram at [facility] revealed single-vessel CAD with proximal LAD and ostial D1 stenosis. Transferred to [facility] for heart team approach and after further shared decision making patient elected to proceed with PCI after she was evaluated by cardiothoracic surgery. Repeat coronary angiogram revealed severe proximal mid and distal left main lesions and severe ostial/proximal/mid LAD disease. She underwent successful and uncomplicated IVUS guided JESSIE of her LMCA and JESSIE of calcified ostial, proximal and mid LAD lesions. On discharge, her medication regimen consisted of aspirin, Brilinta, high intensity rosuvastatin, metoprolol succinate 25 mg daily and losartan 25 mg daily. On 06/26/2025 she was stable for discharge home. Transthoracic echocardiogram demonstrated normal LV/RV size and systolic function with LVEF of 58% and no significant structural heart disease. Of note, the patient lives in [place] where she will have arranged follow-up with cardiology. Consultants: IP CONSULT TO CARDIAC REHAB IP CONSULT TO CARDIOTHORACIC SURGERY IP CONSULT TO CARDIOLOGY IP CONSULT TO CARDIAC REHAB IP CONSULT TO CARDIAC REHAB Procedures: Coronary Arteriography 06/25/2025 Dominance: Left dominance [facility] Left Main: Large caliber vessel with 70% severe calcified diffuse proximal to distal LM disease Left Anterior Descending: Severe diffuse 90% Ostial LAD to mid LAD stenosis at bifurcation of first diagonal. Diagonals: D1 is moderate caliber vessel with no significant ostial disease by IVUS. D2 is small caliber vessel. Left Circumflex: Small caliber vessel with mild diffuse disease. Obtuse Marginals: One obtuse marginal with mild diffuse disease. Right Coronary: Non injected. [facility] Collaterals: None Coronary Intervention Successful IVUS guided PCI of proximal LM post-dilated with 3.5 mm sunitha-compliant balloon at 20 dylon Successful IVUS guided JESSIE of ostial, proximal and mid LAD with 2.50 x 38 mm Cor Skypoint JESSIE post dilated with a 3.00 mm semi complaint balloon in proximal LAD. Complications None Conclusions Severe proximal, mid and distal Left Main CAD by angio and IVUS Severe ostial, proximal and mid LAD disease by angio and IVUS Successful IVUS guided JESSIE of unprotected LMCA Successful IVUS guided JESSIE of calcified ostial, proximal and mid LAD Plan JESSIE maintenance with DAPT: Aspirin and Brilinta. Medical management of CAD with aspirin, high intensity statin, GDMT with ACEI/ARB and betablocker if BP allows. Cardiac rehab as outpatient. Transthoracic echocardiogram 06/25/2025 Left Ventricle: Left ventricle size is normal. Normal wall thickness. Normal left ventricular systolic function. EF by 2D Simpsons Biplane is 58%. Global longitudinal strain is -18.9%. Normal wall motion. Normal diastolic function. Right Ventricle: Right ventricle size is normal. Normal systolic function. Aorta: Normal sized sinuses of Valsalva and ascending aorta. Aortic Valve: Not well visualized. Mildly thickened cusps. Mildly calcified cusps. Left and right cusps sclerosis. No regurgitation. No stenosis. No significant valvular abnormalities. Technically difficult study. Last diet during hospitalization: Adult diet Regular Recommended at discharge: Same as above. Activity No heavy lifting. Light work; Disposition: Home Condition at Discharge: good Followup Testing/ Instructions: None Facility/Home Care Agency: NONE Pending Results: None No future appointments. Disc (more content not included)... [facility] 06-26-2025 Hospital course Narrative Images from the original note were not included. [facility] [place] [facility] Discharge Summary Name: Theresa Marx Date of : 1965 Date of Admission: 06/23/2025 Date of Discharge: 06/26/2025 Discharge Attending: Anton Arteaga MD Primary Care Provider: No primary care provider on file. Type of Admission: Admission Code Status: Full Code Reason for Admission NSTEMI Discharge Diagnoses: Coronary artery disease Medical History[1] Surgical History[2] Family History[3] Social History[4] Hospital Course Theresa Marx is a 59-year-old female with a history of T2DM, HTN, prior tobacco use, MDD/anxiety who presented to [facility] on 06/22/2025 with acute onset chest pain found to have obstructive CAD treated with PCI of her LMCA and ostial/proximal to mid LAD. Initial coronary angiogram at [facility] revealed single-vessel CAD with proximal LAD and ostial D1 stenosis. Transferred to [facility] for heart team approach and after further shared decision making patient elected to proceed with PCI after she was evaluated by cardiothoracic surgery. Repeat coronary angiogram revealed severe proximal mid and distal left main lesions and severe ostial/proximal/mid LAD disease. She underwent successful and uncomplicated IVUS guided JESSIE of her LMCA and JESSIE of calcified ostial, proximal and mid LAD lesions. On discharge, her medication regimen consisted of aspirin, Brilinta, high intensity rosuvastatin, metoprolol succinate 25 mg daily and losartan 25 mg daily. On 06/26/2025 she was stable for discharge home. Transthoracic echocardiogram demonstrated normal LV/RV size and systolic function with LVEF of 58% and no significant structural heart disease. Of note, the patient lives in [place] where she will have arranged follow-up with cardiology. Consultants: IP CONSULT TO CARDIAC REHAB IP CONSULT TO CARDIOTHORACIC SURGERY IP CONSULT TO CARDIOLOGY IP CONSULT TO CARDIAC REHAB IP CONSULT TO CARDIAC REHAB Procedures: Coronary Arteriography 06/25/2025 Dominance: Left dominance [facility] Left Main: Large caliber vessel with 70% severe calcified diffuse proximal to distal LM disease Left Anterior Descending: Severe diffuse 90% Ostial LAD to mid LAD stenosis at bifurcation of first diagonal. Diagonals: D1 is moderate caliber vessel with no significant ostial disease by IVUS. D2 is small caliber vessel. Left Circumflex: Small caliber vessel with mild diffuse disease. Obtuse Marginals: One obtuse marginal with mild diffuse disease. Right Coronary: Non injected. [facility] Collaterals: None Coronary Intervention Successful IVUS guided PCI of proximal LM post-dilated with 3.5 mm sunitha-compliant balloon at 20 dylon Successful IVUS guided JESSIE of ostial, proximal and mid LAD with 2.50 x 38 mm Cor Skypoint JESSIE post dilated with a 3.00 mm semi complaint balloon in proximal LAD. Complications None Conclusions Severe proximal, mid and distal Left Main CAD by angio and IVUS Severe ostial, proximal and mid LAD disease by angio and IVUS Successful IVUS guided JESSIE of unprotected LMCA Successful IVUS guided JESSIE of calcified ostial, proximal and mid LAD Plan JESSIE maintenance with DAPT: Aspirin and Brilinta. Medical management of CAD with aspirin, high intensity statin, GDMT with ACEI/ARB and betablocker if BP allows. Cardiac rehab as outpatient. Transthoracic echocardiogram 06/25/2025 Left Ventricle: Left ventricle size is normal. Normal wall thickness. Normal left ventricular systolic function. EF by 2D Simpsons Biplane is 58%. Global longitudinal strain is -18.9%. Normal wall motion. Normal diastolic function. Right Ventricle: Right ventricle size is normal. Normal systolic function. Aorta: Normal sized sinuses of Valsalva and ascending aorta. Aortic Valve: Not well visualized. Mildly thickened cusps. Mildly calcified cusps. Left and right cusps sclerosis. No regurgitation. No stenosis. No significant valvular abnormalities. Technically difficult study. Last diet during hospitalization: Adult diet Regular Recommended at discharge: Same as above. Activity No heavy lifting. Light work; </= 5 lbs. Disposition: Home Condition at Discharge: good Followup Testing/ Instructions: None Facility/Home Care Agency: NONE Pending Results: None No future appointments. Discharge Plan Medication List START taking these medications Aspirin Low Dose 81 MG EC tablet Generic drug: aspirin Take 1 tablet (81 mg) by mouth daily. Start taking on: June 27, 2025 losartan 25 MG tablet Commonly known as: Cozaar Take 1 tablet (25 mg) by mouth daily. Start taking on: June 27, 2025 * metoprolol succinate XL 25 MG 24 hr tablet Commonly known as: Toprol-XL Take 1 tablet (25 mg) by mouth daily. Do not crush or chew. Start taking on: June 27, 2025 * metoprolol succinate XL 25 MG 24 hr tablet Commonly known as: Toprol-XL Take 1 tablet (25 mg) by mouth daily. Do not crush or chew. Do not start before June 27, 2025. Start taking on: June 27, 2025 nitroglycerin 0.4 MG SL tablet Commonly known as: Nitrostat Place 1 tablet (0.4 mg) under the tongue every 5 minutes as needed for chest pain. pantoprazole 40 MG EC tablet Commonly known as: ProtoNix Take 1 tablet (40 mg) by mouth every morning (before breakfast). Do not crush, chew, or split. Do not start before June 27, 2025. Start taking on: June 27, 2025 * rosuvastatin 40 MG tablet Commonly known as: Crestor Take 1 tablet (40 mg) by mouth daily. Start taking on: June 27, 2025 * rosuvastatin 40 MG tablet Commonly known as: Crestor Take 1 tablet (40 mg) by mouth daily. Do not start before June 27, 2025. Start taking on: June 27, 2025 ticagrelor 90 MG tablet Commonly known as: Brilinta Take 1 tablet (90 mg) by mouth 2 times daily for 727 doses. * This list has 4 medication(s) that are the same as other medications prescribed for you. Read the directions carefully, and ask your doctor or other care provider to review them with you. CONTINUE taking these medications buPROPion XL 150 MG 24 hr tablet Commonly known as: Wellbutrin XL OZEMPIC (1 MG/DOSE) SC pioglitazone 15 MG tablet Commonly known as: Actos venlafaxine XR 75 MG 24 hr capsule Commonly known as: Effexor XR Where to Get Your Medications These medications were sent to [facility] [address] [place] [address] Hours: Wednesday to Wednesday 10 am to 6 pm Aspirin Low Dose 81 MG EC tablet losartan 25 MG tablet metoprolol succinate XL 25 MG 24 hr tablet metoprolol succinate XL 25 MG 24 hr tablet nitroglycerin 0.4 MG SL tablet pantoprazole 40 MG EC tablet rosuvastatin 40 MG tablet rosuvastatin 40 MG tablet ticagrelor 90 MG tablet Objective: Physical Exam: Vitals: BP 114/64 (BP Location: Left arm, Patient Position: Lying) Pulse 79 Temp 36.7 C (98 F) (Temporal) Resp 14 Ht 5' 5.5 (1.664 m) Wt 152 lb 1.6 oz (69 kg) SpO2 99% BMI 24.93 kg/m Intake/Output Summary (Last 24 hours) at 06/26/2025 1340 Last data filed at 06/26/2025 0148 Gross per 24 hour Intake 350 ml Output 10 ml Net 340 ml Admission weight: 150 lb 12.8 oz (68.4 kg) Last weight: Wt Readings from Last 1 Encounters: 06/26/25 152 lb 1.6 oz (69 kg) Body mass index is 24.93 kg/m . BMI Classification: Normal Weight (BMI 18.5-24.9) Laboratory Tests: NT-ProBNP level; last two recorded values, may include those outside this admission. Lab Results Component Value Date BNP 668 (H) 06/23/2025 Lab Results Component Value Date WBC 9.0 06/26/2025 HGB 10.8 (L) 06/26/2025 HCT 32.8 (L) 06/26/2025 MCV 86.5 06/26/2025 PLT 150 06/26/2025 Lab Results Component Value Date GLUCOSE 132 (H) 06/26/2025 CALCIUM 8.4 (L) 06/26/2025 NA 136 06/26/2025 K 3.9 06/26/2025 CO2 23 06/26/2025 CL 106 06/26/2025 BUN 18 06/26/2025 CREATININE 0.73 06/26/2025 Lab Results Component Value Date ALT 36 (H) 06/26/2025 AST 58 (H) 06/26/2025 ALKPHOS 118 06/26/2025 BILITOT 0.3 06/26/2025 National Registry/ Accreditation Requirements/ Other DC information. Quality Indicators if applicable. Quality Indicators for Acute UT / PCI: Guideline Directed Medical Therapy Aspirin: Yes P2Y12 Inhibitor: Yes High-Intensity Statin: Yes Beta Gumaro: Yes CAROLINE-I/ARB/ARNI: Yes MRA: No, not medically indicated Smoking cessation counseling completed: Not applicable Benefits of Cardiac Rehab attendance discussed with patient. 72-hour follow up phone call requested: Yes Has LV evaluation been performed this admission? Yes EF BP Date Value Ref Range Status 06/25/2025 58 55 - 100 % Final STEMI follow up within 7 days, NSTEMI/PCI/ADHF follow up within 14 days. Must be scheduled prior to hospital discharge. Follow up appointment scheduled: No; patient lives in [place] Patient and Family Counseling Addressed: Activity. Diet restrictions/heart healthy. Discharge medications and importance of cardiac medication compliance. Importance of follow-up with Cardiology. Recognition of the signs/symptoms of ACS and need to seek emergent care. Patient specific ACS risk factor modifications. Medications to avoid if diagnosed with ACS. If any questions, call: [facility] Cardiology [phone] Total time Discharge activity. []30 min or less [x]Greater than 30 min Anton Arteaga MD Parts of this note may be generated using a voice recognition software program. Please excuse any systems development manager errors that may have occurred. This note was electronically signed by Anton Arteaga MD on 06/26/25 [1] History reviewed. No pertinent past medical history. [2] Past Surgical History: Procedure Laterality Date BLADDER REPAIR CARDIAC CATHETERIZATION N/A 06/25/2025 Performed by Ronny Chase MD at [facility] Cardiac Cath/EP Lab CARDIAC CATHETERIZATION N/A 06/25/2025 Performed by Ronny Chase MD at [facility] Cardiac Cath/EP Lab HYSTERECTOMY REMOVAL GALLBLADDER (HISTORICAL) [3] No family history on file. [4] Social History Tobacco Use Smoking status: Never Smokeless tobacco: Never Substance Use Topics Alcohol use: Never Drug use: Never Cosigned by Bi Mejia MD at 06/26/2025 3:43 PM EST Associated attestation - Bi Mejia MD - 06/26/2025 3:43 PM EST The patient was seen and examined on rounds today. Independent history and physical exam were obtained. The assessment plan were made together. We spent greater than 30 minutes executing this discharge. documented in this encounter [facility] 06-26-2025 Consult note Associated Order (s): IP CONSULT TO CARDIAC REHAB; IP CONSULT TO CARDIAC REHAB Received referral and reviewed chart. Phase II Cardiopulmonary Rehab Referral discussed with Theresa Marx. Patient prefers cardiopulmonary rehab at [place]. Given information on program at preferred location. [facility] 06-26-2025 Note Received referral an d reviewed chart. Phase II Cardiopulmonary Rehab Referral discussed with Theresa Marx. Patient prefers cardiopulmonary rehab at [place]. Given information on program at preferred location. [facility] 06-26-2025 Consult note Associated Order (s): IP CONSULT TO CARDIAC REHAB; IP CONSULT TO CARDIAC REHAB Received referral and reviewed chart. Phase II Cardiopulmonary Rehab Referral discussed with Theresa Marx. Patient prefers cardiopulmonary rehab at [place]. Given information on program at preferred location. Associated Order(s): IP CONSULT TO CARDIAC REHAB Received referral and reviewed chart. Unable to discuss Phase II Cardiopulmonary Rehab Referral with Theresa Marx at this time. Will follow to discuss program when appropriate. Patient will be contacted at home if discharged prior to discussion. Associated Order(s): IP CONSULT TO CARDIOTHORACIC SURGERY Images from the original note were not included. [facility]: Cardiothoracic Surgery Consultation Note PATIENT NAME: Theresa Marx : 1965 (59 y.o.) TODAY'S DATE: 06/24/2025 DATE OF ADMISSION: 06/23/2025 6:30 PM Reason for Consult: CAD Consulting Provider: Dr. Chase Subjective: CC: chest pain HPI: 59 yo female with PMH of HPL, T2DM, former tobacco use, anxiety, fibromyalgia. She initially presented to [facility] with acute onset chest pain. Admitted for NSTEMI with troponin rise, no significant ischemic changes on EKG. Underwent a LHC that showed multivessel CAD involving prox LAD at bifurcation of large Diag1. Per chart review she aso had TTE that showed normal LV size, LVEF 55%, no significant valve disease. She was transferred to [facility] on 06/23 for heart team approach. Patient lives in [place] with her but is currently visiting her daughters in [place]. She is typically active at baseline and is currently helping her daughter renovate a house. She denies prior cardiac history. Is a former smoker, quit many years ago, denies ETOH or drug use. 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 Review of Systems Constitutional: Negative for activity change, appetite change, diaphoresis, fatigue and fever. Respiratory: Negative for cough, shortness of breath and wheezing. Cardiovascular: Negative for chest pain, palpitations and leg swelling. Gastrointestinal: Negative for abdominal distention, abdominal pain, blood in stool, nausea and vomiting. Genitourinary: Negative for dysuria and hematuria. Skin: Negative for color change, pallor and rash. Allergies: Patient has no known allergies. Past Medical History: has no past medical history on file. Past Surgical History: has a past surgical history that includes Hysterectomy; Bladder repair; and removal gallbladder (historical). Social History: reports that she has never smoked. She has never used smokeless tobacco. She reports that she does not drink alcohol and does not use drugs. Family History: family history is not on file. Medications: Prior to Admission medications Medication Sig Start Date End Date Taking? Authorizing Provider buPROPion XL (Wellbutrin XL) 150 MG 24 hr tablet Take 150 mg by mouth daily. Do not crush, chew, or split. Yes Historical Provider, pioglitazone (Actos) 15 MG tablet Take 15 mg by mouth daily. Yes Historical Provider, Semaglutide (OZEMPIC, 1 MG/DOSE, SC) Inject under the skin. Yes Historical Provider, venlafaxine XR (Effexor XR) 75 MG 24 hr capsule Take 75 mg by mouth daily. Do not crush or chew. Yes Historical Provider, Objective: Vitals: BP: 127/75, MAP (mmHg): 92, Heart Rate: 74 Resp: 16 Temp: 36.6 C (97.9 F), Temp Source: Temporal Intake/Output Summary (Last 24 hours) at 06/24/2025 1108 Last data filed at 06/24/2025 1106 Gross per 24 hour Intake 1502.11 ml Output 2500 ml Net -997.89 ml Physical Exam Constitutional: General: She is not in acute distress. Appearance: Normal appearance. Cardiovascular: Rate and Rhythm: Normal rate and regular rhythm. Pulses: Normal pulses. Heart sounds: Normal heart sounds. No murmur heard. No friction rub. Pulmonary: Effort: Pulmonary effort is normal. Breath sounds: Normal breath sounds. Abdominal: General: Bowel sounds are normal. Palpations: Abdomen is soft. Tenderness: There is no abdominal tenderness. Musculoskeletal: Right lower leg: No edema. Left lower leg: No edema. Skin: General: Skin is warm and dry. Capillary Refill: Capillary refill takes less than 2 seconds. Neurological: Mental Status: She is alert. Diagnostics: Reviewed in EMR Labs: Reviewed in EMR BMP: Recent Labs 06/23/25 1950 06/24/25 0308 NA 136 136 K 3.5 3.5 CL 105 105 CO2 25 28 BUN 10 10 CREATININE 0.66 0.67 CALCIUM 8.4* 8.5* MG 1.9 -- PHOS 3.1 -- CBC: Recent Labs 06/23/25 1950 06/24/25 0308 WBC 8.0 7.2 HGB 11.8 11.7 HCT 35.4 35.3 PLT 124* 132* MCV 85.9 86.1 RDW 13.0 12.9 Assessment: CAD HPL T2DM Anxiety Former tobacco use Plan: CABG discussed with patient. Risk of surgery, anticipated benefits, and alternatives discussed. Patient educated on salvage determiner mortality benefit and decreased risk of repeat revascularization with CABG over PCI of LAD. Patient wishes to proceed with PCI. I did notify Cardiology team of her wishes. STS Score: Procedure Type: Isolated CABG Perioperative Outcome Estimate % Operative Mortality 1.09% Morbidity & Mortality 4.62% Stroke 0.759% Renal Failure 0.482% Reoperation 2.17% Prolonged Ventilation 2.33% Deep Sternal Wound Infection 0.187% Long Hospital Stay (>14 days) 2.4% Short Hospital Stay (<6 days)* 60% Personally Reviewed: [x]Epic notes [x]Radiology studies [x]Labs [x]EKG []Other A total of 38 minutes were spent between the imwq-ba-rngi encounter, physical exam, reviewing the medical history, coordinating the patient's care, counseling/educating the patient, ordering medications/test/procedures, interpreting results and documenting clinical information in the patients electronic health record on the day of the encounter. The patient was seen and examined independently and relevant data reviewed by myself. A full chart review was performed. Cosigned by Anthony Cullen MD at 06/25/2025 2:04 PM EST Associated attestation - Anthony Cullen MD - 06/25/2025 2:04 PM EST DOS: 06/24/2025 I personally performed a [id number] diagnostic evaluation on this patient I agree with the findings and plan of care as documented by the RUSSEL or resident. There has been no change in the physical exam or findings unless otherwise noted below. A total of 60 minutes were spent between the ekyb-ga-wcri encounter, physical exam, reviewing the medical history, coordinating the patient's care, counseling/educating the patient, ordering medications/test/procedures, interpreting results and documenting clinical information in the patients electronic health record on the day of the encounter. The patient was seen and examined independently and relevant data reviewed by myself. A full chart review was performed. This is a 59-year-old patient who was found to have an elevated troponin, non-ST segment elevation UT who underwent left heart catheter demonstrated in LAD/diagonal 1 stenosis. She was transferred for further evaluation. While surgery remains an option, she has chosen to proceed with PCI/stent. We discussed the benefits and durability of left internal mammary artery grafting to the LAD. Patient is a Pentec[employer]ism and would like to minimize the potential chance for blood transfusions. I did assure her that surgery could potentially be possible in the future, if it was required. No surgical intervention is planned. Patient wishes to pursue PCI/stenting. Associated Order(s): IP CONSULT TO CARDIOLOGY [facility] [place] Interventional Cardiology Consult Note Reason for Consult/Chief Complaint: Obstructive focal LAD bifurcation lesion on LHC at OSH, evaluate for options PCI vs CABG Referring provider: Dr. Hendricks Established switch cleaner: None History of Present Illness: Theresa Marx is a 59 y.o. female with a history of cst-hoeudmy-stmpbhudg diabetes mellitus, HTN, prior tobacco use, anxiety was admitted to [place] with NSTEMI and acute chest pain on Wednesday. She underwent a left heart cath at [place] (angiographic films in PACS), films were personally reviewed showing severe focal stenosis of the proximal LAD at bifurcation with large first diagonal. Ostial diagonal is large caliber vessel with focal moderate to severe lesion. LAD has ENEDINA 2-3 flow. No other significant disease in dominant RCA, LCX is small caliber vessel with mild diffuse disease. LV gram showed normal LVEF ~65-70% with no wall motion abnormalities in anterior, anterolateral and inferior parsons. She is transferred to [facility] for evaluation for heart team approach for PCI versus CABG. EKG shows sinus rhythm with left bundle branch block. She is hemodynamically stable, chest pain-free on heparin drip. She has no complaints. Labs reviewed normal renal function, mildly abnormal LFTs. LDL of 155, A1c of 5.7. 59F. CRF + DM2, HTN. Remote smoker. HPI: Presented w 36 hrs CP w minimal exertion. No prior CV Hx. Cath = Prox LAD and ostial D1 stenoses. (?Possible separate ostium LCF vs very small LCF system). Normal RCA. Normal LV function on LVgram. Transferred to [facility] from [facility] for Team Approach to care. Assessment/Plan HF NYHA Class [] I [x] II [] III [] IV []Unable to assess NSTEMI with obstructive single vessel CAD: Risk factors: Prior smoker, HTN, NIDDM. Underwent diagnostic angiogram at [place]. Angiographic films in PACS, were personally reviewed showing severe focal stenosis of the proximal LAD at bifurcation with large first diagonal. Ostial diagonal is large caliber vessel with focal moderate to severe lesion. LAD has ENEDINA 2-3 flow. No other significant disease in dominant RCA, LCX is small caliber vessel with mild diffuse disease. LV gram showed normal LVEF ~65-70% with no wall motion abnormalities in anterior, anterolateral and inferior parsons. Her Syntax score is low. A1c is 5.7. Both options of CABG and PCI were discussed with patient. Patient LAD lesion is amicable to PCI which was offered. Risks and benefits of PCI were discussed including risk of future ISR needing repeat revascularization. Plan for CTS to evaluate the patient today and pending final decision by patient. Primary team informed. Continue Heparin ggt for 24hrs. If patient choose to proceed with PCI, start on brilinta load 180mg followed by 90mg BID. Continue aspirin and high intensity statin. Thanks for involving us in patient care. I have reviewed the cath films. The bifurcation lesion LAD-D is approachable percutaneously. Single vessel CAD in a diabetic with prox LAD. Low SYNTAX score and good LV function. Equivalence as far as longevity with CABG v PCI. CABG would result in less chance of another procedure. Higher risk of ISR and repeat PCI with intervention. Intervention would result in shorter hospital stay and quicker return to activities. Patient to meet with CTS and decide on course of treatment. Medications: [Scheduled Meds] [Scheduled Meds] aspirin, 81 mg, Oral, Daily buPROPion XL, 150 mg, Oral, Daily heparin, 4,000 Units, IntraVENous, Once influenza, 0.5 mL, IntraMUSCular, Once insulin lispro, 0-12 Units, SubCUTAneous, TID WC And insulin lispro, 0-12 Units, SubCUTAneous, Nightly metoprolol succinate XL, 25 mg, Oral, Daily rosuvastatin, 40 mg, Oral, Daily sodium chloride 0.9%, 5-40 mL, IntraVENous, q12h venlafaxine XR, 75 mg, Oral, Daily Infusion Medications: [Continuous Meds] [Continuous Meds] heparin, 5-30 Units/kg/hr, Last Rate: 8 Units/kg/hr (06/24/25 0705) Physical Examination: Vitals: 06/23/25 2240 06/24/25 0219 06/24/25 0242 06/24/25 0749 BP: 138/73 143/78 121/67 BP Location: Right arm Left arm Left arm Patient Position: Lying Lying Lying Pulse: 80 87 86 Resp: 16 16 16 Temp: 37.1 C (98.7 F) 36.8 C (98.3 F) 36.4 C (97.5 F) TempSrc: Temporal Temporal Temporal SpO2: 97% 95% 97% Weight: 151 lb 6.4 oz (68.7 kg) Intake/Output Summary (Last 24 hours) at 06/24/2025 0816 Last data filed at 06/24/2025 0749 Gross per 24 hour Intake 1502.11 ml Output 2100 ml Net -597.89 ml Wt Readings from Last 3 Encounters: 06/24/25 151 lb 6.4 oz (68.7 kg) Physical Exam Constitutional: General: She is not in acute distress. Appearance: Normal appearance. She is not ill-appearing. HENT: Mouth/Throat: Mouth: Mucous membranes are moist. Cardiovascular: Rate and Rhythm: Normal rate and regular rhythm. Pulses: Normal pulses. Heart sounds: Normal heart sounds. No murmur heard. Pulmonary: Effort: Pulmonary effort is normal. Breath sounds: Normal breath sounds. No wheezing or rales. Abdominal: General: Abdomen is flat. Palpations: Abdomen is soft. Musculoskeletal: Right lower leg: No edema. Left lower leg: No edema. Skin: General: Skin is warm and dry. Capillary Refill: Capillary refill takes less than 2 seconds. Neurological: General: No focal deficit present. Mental Status: She is alert and oriented to person, place, and time. Psychiatric: Mood and Affect: Mood normal. Behavior: Behavior normal. Laboratory Tests: TROPONIN I, CONVENTIONAL SENSITIVITY CK Date Value Ref Range Status 06/23/2025 387 (H) 30 - 185 U/L Final CKMB Date Value Ref Range Status 06/23/2025 20.2 (H) <=3.4 ng/mL Final TROPONIN I, HIGH SENSITIVITY Troponin HS Serial Baseline Date Value Ref Range Status 06/23/2025 10,391 (HH) <=14 ng/L Final Comment: In individuals presenting with symptoms > 2h, a baseline troponin <= 5 ng/L suggests acute cardiac injury is unlikely and further serial testing is generally not indicated. 2h Troponin HS (Serial 2nd Troponin) Date Value Ref Range Status 06/23/2025 8,371 (HH) <=14 ng/L Final Comment: Rising or falling troponin delta greater than 15 ng/L as compared to baseline value is significant for acute cardiac injury. No results found for: TROPDELTBASE No results found for: TROPHS3 No results found for: TROPDELTSEC Recent Labs 06/23/25 1950 06/24/25 0308 NA 136 136 K 3.5 3.5 CL 105 105 CO2 25 28 BUN 10 10 CREATININE 0.66 0.67 EGFR >90.0 >90.0 Recent Labs 06/23/25 1950 06/24/25 0308 WBC 8.0 7.2 HGB 11.8 11.7 HCT 35.4 35.3 MCV 85.9 86.1 PLT 124* 132* Lab Results Component Value Date HGBA1C 5.7 (H) 06/23/2025 Lab Results Component Value Date TSH 1.01 06/23/2025 Lab Results Component Value Date CHOL 210 (H) 06/23/2025 Lab Results Component Value Date HDL 43 (L) 06/23/2025 Lab Results Component Value Date LDLCALC 155 (H) 06/23/2025 Lab Results Component Value Date TRIG 59 06/23/2025 No results found for: CHOLHDL No results found for: LDLCHOLESTER Recent Labs 06/23/25 1950 BNP 668* No results for input(s): INR in the last 72 hours. Results from last 7 days Lab Units 06/24/25 0308 06/23/251949 AST U/L 101* 113* ALT U/L 43* 46* No results found for: IRON, TIBC, FERRITIN Radiology: CXR: personally reviewed: Cardiac Tests Personally Reviewed: Last EKG 06/23/25 ECG 12-LEAD (Preliminary) This result has not been signed. Information might be incomplete. Impression Sinus rhythm Left bundle branch block ST elevation secondary to IVCD Telemetry findings: SR Reports reviewed: Last Echo No results found for this or any previous visit. Last Cath No results found for this or any previous visit. Last Stress Test No results found for this or any previous visit. Last EP study No results found for this or any previous visit. No results found for: EFBP, PLVEF, LVEFPHYS, LVEF2D, EF Brian Andrade MD DATE of SERVICE: 06/24/2025 I, Dr. Ronny Chase, saw and evaluated the patient on 06/24/2025. I personally obtained the kauffman and critical portions of the history and physical exam. I reviewed the labs, imaging studies, and electronic medical record. I reviewed the fellow's documentation, and discussed the patient with the fellow. I agree with the fellow's medical decision making and have edited the note to reflect my clinical findings and my assessment and plan. documented in this encounter [facility] 06-26-2025 History of Presen t illness Narrative Checked on pt this morning. Feels well without CP, SOB, MCCRACKEN, vision or speech changes. Radial site stable. Femoral site stable with tenderness over pubic area with palpation. No issues when ambulating to toilet. VSS. Likely discharge home today. Plans to remain in [place] with family for next few weeks before going back to home in [place]. Arranged follow up appt in [place] next week in Dr. Shelton's office. Advised to continue ASA 81mg daily lifelong without interruption and Brilinta 90mg PO BID for at least 1 year without interruption. Discharge instructions, medications, restrictions, and follow up appt reviewed and verbalized understanding. She will utilize [facility] for home-going Rx. She was instructed to inform office if: has any difficulty obtaining Rx or if this becomes a financial burden or if anyone asks to hold ASA or ticagrelor. Patient verbalized understanding. Updated ICS team who will be seeing pt and finalizing discharge. Cosigned by Bi Mejia MD at 06/26/2025 11:36 AM EST Associated attestation - Bi Mejia MD - 06/26/2025 11:36 AM EST The patient was seen and examined on rounds today. Independent history and physical exam were obtained. The assessment and plan were made together. I will sign the discharge summary once its available. We spent greater than 30 minutes executing this discharge. [facility] In-Patient Cardiology Service (ICS) Progress Note If patient is on ICS, for questions (see Product Owner Finder): 7:00 AM- 5:00 PM: Contact ICS Fellow 5:00 PM - 11:00 PM: Contact ICS Ronaler 11:00 PM- 7:00 AM: Contact Night Call (HLU) Fellow HOSPITAL COURSE: Theresa Marx is a 59-year-old female with a history of T2DM, HTN, prior tobacco use, MDD/anxiety who presented to [facility] on 06/22/2025 found to have obstructive CAD with acute onset chest pain transferred to [facility] for PCI versus CABG. She was evaluated by cardiothoracic surgery and decision was made to proceed with PCI. OVN EVENTS: No acute events SUBJECTIVE: Feels well this morning. Denies chest pain, shortness of breath, palpitations, lightheadedness, orthopnea or other new symptoms. Assessment/Plan Coronary artery disease Hyperlipidemia Underwent coronary angiogram at OSH found to have single-vessel obstructive CAD with proximal LAD and ostial D1 stenosis. Transferred to [facility] for heart team approach and after further shared decision making patient elected to proceed with PCI. Plan: - Continue aspirin 81 mg daily - Continue ticagrelor 90 mg twice daily - Continue rosuvastatin 40 mg daily - Continue metoprolol succinate 25 mg daily Hypertension - Continue metoprolol as above - Start losartan 25 mg daily Type 2 diabetes mellitus - Insulin SSI plus POCT before every meal/nightly MDD/anxiety - Continue venlafaxine XR 75 mg daily - Continue bupropion XL 150 mg daily Medications: Scheduled Meds[1] Infusion Medications: Continuous Meds[2] Physical Examination: Vitals: 06/25/25 2051 06/25/25 2226 06/26/25 0255 06/26/25 0422 BP: 99/58 93/55 (!) 97/48 108/55 BP Location: Patient Position: Pulse: 73 82 79 77 Resp: 20 18 19 Temp: 36.1 C (96.9 F) 36.7 C (98 F) 36.5 C (97.7 F) 36.4 C (97.6 F) TempSrc: Temporal Temporal Temporal Temporal SpO2: 98% 98% 96% 98% Weight: 152 lb 1.6 oz (69 kg) Height: Intake/Output Summary (Last 24 hours) at 06/26/2025 0812 Last data filed at 06/26/2025 0148 Gross per 24 hour Intake 400 ml Output 10 ml Net 390 ml Wt Readings from Last 3 Encounters: 06/26/25 152 lb 1.6 oz (69 kg) Physical Exam: GEN: NAD, AT/AC, MMM ENT: Oral mucosa is pink and moist CARDS: RRR, S1/S2, No R,M,G, JVD normal RESP: Poor air movement, decreased bibasilar breath sounds. No ronchi, wheezing VASC: 2+ Peripheral pulses ABD: NT, ND, BS+ Extremities: Trace LE edema Skin: Warm to touch and well perfused NEURO/PSYCH: A&O x 3, no focal deficits Laboratory Tests: Recent Labs 06/23/25194906/24/2530706/25/2522406/26/25 024 NA 136 136 137 136 K 3.5 3.5 3.7 3.9 CL 105 105 105 106 CO2 25 28 26 23 BUN 10 10 16 18 CREATININE 0.66 0.67 0.66 0.73 Recent Labs 06/23/25194906/24/2530706/25/2522406/26/25 0242 WBC 8.0 7.2 7.7 9.0 HGB 11.8 11.7 11.6* 10.8* HCT 35.4 35.3 34.9* 32.8* MCV 85.9 86.1 85.5 86.5 PLT 124* 132* 127* 150 Recent Labs 06/23/251949 CKTOTAL 387* CKMB 20.2* Recent Labs 06/23/251949 BNP 668* Recent Labs 06/23/251949 TRIG 59 HDL 43* LDLCALC 155* CHOL 210* No results found for: LDLCHOLESTER Lab Results Component Value Date TSH 1.01 06/23/2025 EF BP Date Value Ref Range Status 06/25/2025 58 55 - 100 % Final 06/23/25 TRANSTHORACIC ECHOCARDIOGRAM (TTE) COMPLETE (CONTRAST/BUBBLE/3D PRN) 06/25/2025 12:56 PM (Final) Interpretation Summary Left Ventricle: Left ventricle size is normal. Normal wall thickness. Normal left ventricular systolic function. EF by 2D Simpsons Biplane is 58%. Global longitudinal strain is -18.9%. Normal wall motion. Normal diastolic function. Right Ventricle: Right ventricle size is normal. Normal systolic function. Aorta: Normal sized sinuses of Valsalva and ascending aorta. Aortic Valve: Not well visualized. Mildly thickened cusps. Mildly calcified cusps. Left and right cusps sclerosis. No regurgitation. No stenosis. No significant valvular abnormalities. Technically difficult study. Signed by: Barbara Hendricks MD on 06/25/2025 12:56 PM Cardiac Tests: EF BP Date Value Ref Range Status 06/25/2025 58 55 - 100 % Final Anton Arteaga MD Date Of Service 06/26/2025 [1] aspirin, 81 mg, Oral, Daily buPROPion XL, 150 mg, Oral, Daily influenza, 0.5 mL, IntraMUSCular, Once insulin lispro, 0-12 Units, SubCUTAneous, TID WC And insulin lispro, 0-12 Units, SubCUTAneous, Nightly metoprolol succinate XL, 25 mg, Oral, Daily rosuvastatin, 40 mg, Oral, Daily sodium chloride 0.9%, 5-40 mL, IntraVENous, q12h ticagrelor, 90 mg, Oral, BID venlafaxine XR, 75 mg, Oral, Daily [2] Cosigned by Bi Mejia MD at 06/26/2025 3:42 PM EST Associated attestation - Bi Mejia MD - 06/26/2025 3:42 PM EST The patient was seen and examined on rounds today. Physical exam were obtained. The assessment and plan were made together. Checked on pt s/p PCI. Reports feeling well. Denies CP, SOB, MCCRACKEN, vision or speech changes. Right femoral site stable, no bleeding or hematoma. Pulse 2+. EKG stable. VSS. Plan to continue monitoring overnight and likely discharge home tomorrow. Nutrition Assessment Type and Reason for Visit: Initial, Positive Nutrition Screen (MST 3) Nutrition Recommendations/Plan: Suggest diet advancement to goal of ARUNA/Heart Healthy, no caffeine diet AVS to include heart healthy diet education materials Will continue to monitor labs, meds, oral and/or alternate route of nutrition tolerance, skin integrity, fluid status, wt trends, and overall nutrition status - RD to follow weekly. 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 Past Medical and Surgical History: Medical History[1] Surgical History[2] Nutrition Assessment: LOS# 2. 59F w/ PMHx: T2DM, HTN, prior tobacco use, MDD, and anxiety who presented to [facility] on 06/22/25 and was found to have obstructive CAD w/ acute onset CP. She was t/f to [facility] for evaluation for PCI vs CABG in the setting of prox-LAD and ostial D1 stenoses. She was seen by interventional cardio and CTS and the decision was made to proceed w/ PCI placement. 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 Pt was on a regular, no caffeine diet and has 100% dinner recorded meal yesterday, 06/24. Skin intact. A1c controlled. BS noted. Lipid panel abnl. LVEF 58%. Estimated Daily Nutrient Needs: Energy Requirements Based On: Kcal/kg Weight Used for Energy Requirements: [place] Weight for Energy Calculation (kg): 58 kg Total Energy Requirements (kcals/day): 9982-5099 (25-30 kcals/kg) Weight Used for Protein Requirements: [place] Weight in Kg Used for Protein Requirements: 58 kg Estimated Total Protein (g/day): Estimated Daily Total Fluid (ml/day): 1 ml/kcal or per MD Nutrition Related Findings: Wound Type: None; Silvano Scale Score: 21 Isolation Status: No active isolations Food Allergies: NKFA Teeth: Missing teeth Feeding: Independent Room Service: Selective Edema: None Abdomen Inspection: Soft, Nondistended; Abdominal Tenderness: Soft Bowel Sounds: All quadrants; Last BM Date: 06/24/25 Lives with: Spouse/significant other Orientation Level: Oriented X4 Code Status, Vital Signs, Oxygen Needs, I/Os: Code Status: Full Code Vital Signs: Temp: (!) 35.7 C (96.2 F); Heart Rate: 77; Resp: 17; BP: 128/66; Temp: (!) 35.7 C (96.2 F); MAP (mmHg): 87 Oxygen Therapy: None (Room air); SpO2: 97 % Net IO Since Admission: -367.89 mL [06/25/25 1408] Intake/Output Summary (Last 24 hours) at 06/25/2025 1408 Last data filed at 06/25/2025 0929 Gross per 24 hour Intake 1330 ml Output 700 ml Net 630 ml Labs/Meds Reviewed: Scheduled Meds[3] Continuous Meds[4] BMP: Recent Labs 06/23/25 1950 06/24/2530706/25/25224 NA 136 136 137 K 3.5 3.5 3.7 CL 105 105 105 CO2 25 28 26 BUN 10 10 16 CREATININE 0.66 0.67 0.66 GLUCOSE 120* 123* 114 CALCIUM 8.4* 8.5* 8.7* MG 1.9 -- 1.9 PHOS 3.1 -- 3.2 HEPATIC: Recent Labs 06/23/25 1950 06/24/2530706/25/25224 AST 113* 101* 89* ALT 46* 43* 48* BILITOT 0.6 0.4 0.4 ALKPHOS 115 120 132 CBC: Recent Labs 06/23/25 1950 06/24/2530706/25/25224 WBC 8.0 7.2 7.7 HGB 11.8 11.7 11.6* HCT 35.4 35.3 34.9* MCV 85.9 86.1 85.5 PLT 124* 132* 127* Lab Results Component Value Date EFBP 58 06/25/2025 Lab Results Component Value Date LDLCALC 155 (H) 06/23/2025 HDL 43 (L) 06/23/2025 CHOL 210 (H) 06/23/2025 TRIG 59 06/23/2025 Lab Results Component Value Date TSH 1.01 06/23/2025 Lab Results Component Value Date HGBA1C 5.7 (H) 06/23/2025 Recent Labs 06/23/25 1922 06/24/25 0755 06/24/25 1106 06/24/25 1645 06/24/25 1938 06/25/25 0727 POCGLU 118* 157* 96 136* 158* 102* Current Nutrition Therapies: NPO diet with enteral medications Current Oral Intake Average Meal Intake: NPO Average Supplements Intake: None Ordered, NPO Anthropometric Measures: Height: 166.4 cm (5' 5.5) Current Body Weight: 68.9 kg (152 lb) Weight Source: Standing Scale (06/25/25) Admission Body Weight: 68 kg (150 lb) (via SS 06/23/25) [place] Body Weight (lbs) (Calculated): 128 lbs [place] Body Weight (Kg) (Calculated): 58 kg BMI (kg/m2) (Calculated): 24.9 Weight Adjustment For: No Adjustment Nutrition Diagnosis: Inadequate oral intake related to cardiac dysfunction as evidenced by NPO or clear liquid status due to medical condition, poor intake prior to admission Nutrition Interventions: Food and/or Nutrient Delivery: Continue NPO Nutrition Education/Counseling: Education initiated (AVS) Coordination of Nutrition Care: Continue to monitor while inpatient Goals: Goals: Initiate PO diet Nutrition Monitoring and Evaluation: Behavioral-Environmental Outcomes: None Identified Food/Nutrient Intake Outcomes: Diet Advancement/Tolerance Physical Signs/Symptoms Outcomes: Biochemical Data, Fluid Status or Edema, Hemodynamic Status Discharge Planning: Too soon to determine Laura Washington MS, RD, LD Contact: or [facility] (dial *[phone] from hospital phone) [1] History reviewed. No pertinent past medical history. [2] Past Surgical History: Procedure Laterality Date BLADDER REPAIR HYSTERECTOMY REMOVAL GALLBLADDER (HISTORICAL) [3] aspirin, 81 mg, Oral, Daily buPROPion XL, 150 mg, Oral, Daily heparin, 4,000 Units, IntraVENous, Once influenza, 0.5 mL, IntraMUSCular, Once insulin lispro, 0-12 Units, SubCUTAneous, TID WC And insulin lispro, 0-12 Units, SubCUTAneous, Nightly metoprolol succinate XL, 25 mg, Oral, Daily rosuvastatin, 40 mg, Oral, Daily sodium chloride 0.9%, 5-40 mL, IntraVENous, q12h ticagrelor, 90 mg, Oral, BID venlafaxine XR, 75 mg, Oral, Daily [4] heparin, 5-30 Units/kg/hr, Last Rate: 10 Units/kg/hr (06/25/25 0709) D/w pt and family re: revascularization plan and they both said plan for PCI today with Dr. Chase. Reviewed procedure, risks, benefits and she verbalized understanding. Answered her questions. Updated Dr. Chase. [facility] In-Patient Cardiology Service (ICS) Progress Note If patient is on ICS, for questions (see Product Owner Finder): 7:00 AM- 5:00 PM: Contact ICS Fellow 5:00 PM - 11:00 PM: Contact ICS Moonlighter 11:00 PM- 7:00 AM: Contact Night Call (HLU) Fellow HOSPITAL COURSE: Theresa Marx is a 59-year-old female with a history of T2DM, HTN, prior tobacco use, MDD/anxiety who presented to [facility] on 06/22/2025 found to have obstructive CAD with acute onset chest pain transferred to [facility] for PCI versus CABG. She was evaluated by cardiothoracic surgery and decision was made to proceed with PCI. OVN EVENTS: N.p.o. for left heart catheterization today SUBJECTIVE: Feels okay this morning, denies chest pain, shortness of breath, lightheadedness, palpitations. Awaiting left heart catheterization with plan for PCI today. Assessment/Plan Coronary artery disease Hyperlipidemia Underwent coronary angiogram at OSH found to have single-vessel obstructive CAD with proximal LAD and ostial D1 stenosis. Transferred to [facility] for heart team approach and after further shared decision making patient elected to proceed with PCI. Plan: - Continue aspirin 81 mg daily -Continue ticagrelor 90 mg twice daily - Continue rosuvastatin 40 mg daily - Continue metoprolol succinate 25 mg daily - Continue heparin infusion, n.p.o. for LHC/PCI today - Transthoracic echocardiogram pending Hypertension - Continue metoprolol as above Type 2 diabetes mellitus - Insulin SSI plus POCT before every meal/nightly MDD/anxiety - Continue venlafaxine XR 75 mg daily - Continue bupropion XL 150 mg daily Medications: Scheduled Meds[1] Infusion Medications: Continuous Meds[2] Physical Examination: Vitals: 06/24/25 2309 06/25/25 0222 06/25/25 0250 06/25/25 0720 BP: 114/52 124/66 120/66 BP Location: Left arm Left arm Left arm Patient Position: Lying Lying Lying Pulse: 79 79 84 Resp: 20 14 14 Temp: 36.8 C (98.2 F) 37.3 C (99.1 F) 36.3 C (97.4 F) TempSrc: Temporal Temporal Temporal SpO2: 96% 95% 96% Weight: 152 lb 6.4 oz (69.1 kg) Height: 5' 5 (1.651 m) Intake/Output Summary (Last 24 hours) at 06/25/2025 0806 Last data filed at 06/24/2025 2358 Gross per 24 hour Intake 1280 ml Output 1100 ml Net 180 ml Wt Readings from Last 3 Encounters: 06/25/25 152 lb 6.4 oz (69.1 kg) Physical Exam: GEN: NAD, AT/AC, MMM ENT: Oral mucosa is pink and moist CARDS: RRR, S1/S2, No R,M,G, JVD normal RESP: Poor air movement, decreased bibasilar breath sounds. No ronchi, wheezing VASC: 2+ Peripheral pulses ABD: NT, ND, BS+ Extremities: Trace LE edema Skin: Warm to touch and well perfused NEURO/PSYCH: A&O x 3, no focal deficits Laboratory Tests: Recent Labs 06/23/25194906/24/2530706/25/25224 NA 136 136 137 K 3.5 3.5 3.7 CL 105 105 105 CO2 25 28 26 BUN 10 10 16 CREATININE 0.66 0.67 0.66 Recent Labs 06/23/25194906/24/2530706/25/25224 WBC 8.0 7.2 7.7 HGB 11.8 11.7 11.6* HCT 35.4 35.3 34.9* MCV 85.9 86.1 85.5 PLT 124* 132* 127* Recent Labs 06/23/251949 CKTOTAL 387* CKMB 20.2* Recent Labs 06/23/251949 BNP 668* Recent Labs 06/23/251949 TRIG 59 HDL 43* LDLCALC 155* CHOL 210* No results found for: LDLCHOLESTER Lab Results Component Value Date TSH 1.01 06/23/2025 No results found for: EFBP, PLVEF, LVEFPHYS, LVEF2D, EF No results found for this or any previous visit. Cardiac Tests: No results found for: EFBP, PLVEF, LVEFPHYS, LVEF2D, EF Anton Arteaga MD Date Of Service 06/25/2025 [1] aspirin, 81 mg, Oral, Daily buPROPion XL, 150 mg, Oral, Daily heparin, 4,000 Units, IntraVENous, Once influenza, 0.5 mL, IntraMUSCular, Once insulin lispro, 0-12 Units, SubCUTAneous, TID WC And insulin lispro, 0-12 Units, SubCUTAneous, Nightly metoprolol succinate XL, 25 mg, Oral, Daily rosuvastatin, 40 mg, Oral, Daily sodium chloride 0.9%, 5-40 mL, IntraVENous, q12h ticagrelor, 90 mg, Oral, BID venlafaxine XR, 75 mg, Oral, Daily [2] heparin, 5-30 Units/kg/hr, Last Rate: 10 Units/kg/hr (06/25/25 0709) Cosigned by Bi Mejia MD at 06/25/2025 3:57 PM EST Brief Inpatient Cardiology Service Progress Note Patient admitted overnight as a transfer from [place] for consideration of PCI vs CABG in the setting of prox-LAD and ostial D1 stenoses. Denies recurrent chest pain and feels well. Plan -Interventional cardiology and CTS teams consulted. She is leaning toward PCI but would like to hear from our surgical team as well. -If no surgery, will tentatively plan for PCI tomorrow. NPO after midnight. -Continue heparin drip. Discontinued trending troponin -Echocardiogram pending Derek Henry MD Fellow, Cardiovascular Disease, PGY-6 documented in this encounter [facility] 06-26-2025 [facility] Discharg e instructions Espinoza Osborne, TERMINATION CLERK - MAINTAINER CENTRAL OFFICE - 06/26/2025 9:04 AM EST Call your doctor with any medication questions or if you notice any side effects from your medications. If you are unable to fill your medications, please call your Shared Services Manager immediately. The office number is located with your follow-up appointment information. Call your doctor if any redness or drainage from the wound site. DO NOT stop taking your medication unless instructed to do so by your doctor. Read the drug information material that were given to you and take medications as instructed by your doctor. New drugs may have been added to your medications, that will strengthen your heart and prevent re-stenosis of the coronary arteries. Drink 6 glasses of water (8 ounces each) over the next 24 hours. Water helps clear the dye from your body. No alcoholic beverages for 24 hours. It may interfere with healing. No exercise or sex for 5 days. Call 911 for chest pain, arm pain, nausea, neck pain, dizziness or unusual sweating AND your pain has not relieved with 2 doses of Nitroglycerin. Call your doctor if a lump at the puncture site enlarges or is larger than a golf ball. Call your doctor for severe pain to a light touch or for numbness, tingling or swelling of the affected foot. Call your doctor for increased area of bruising with discoloration extending down the leg. Call your doctor for coolness of the leg or foot. If bleeding occurs, lie down on a hard surface preferably the floor and apply pressure to the site for 20 minutes if BLEEDING continues CALL 911. OK to shower. No tub baths, swimming pools, or hot tub soaking for five days. Wash site daily with soap and water, dry gently. The healing wound should remain soft and dry. Keep the site clean and dry. Cover with large band aid and change dressing for total of five days. No lifting, pushing or pulling more than 5 pounds for 5 days. No driving for three days. Limit your stair climbing for three days. GIVE PCI PACKET (FROM [employer] LEAKAGE TESTER) TO PATIENT PLEASE CALL YOUR HEART DOCTOR IF YOU CANNOT GET YOUR MEDICATIONS. THE NUMBER IS LISTED WITH YOUR FOLLOW-UP APPOINTMENT. Procedure Sedation Instructions If you have received sedation: you must have someone drive you home You should not drive a car, operate machinery, drink alcohol or perform any activity that requires alertness for the rest of the day. The effects of the sedative should be gone by tomorrow. Blood work in 5-7 days, see orders Cardiac Rehab The Cardiac Rehab team at [facility] consists of highly skilled exercise physiologists, nurses, respiratory therapists and physicians working together with you. Our purpose is to help you have a full recovery and achieve the goals you set for yourself. Over the years many of our patients have returned to activities they assumed they would never do again! We can help restore your confidence and motivation to make lifestyle changes that can have a significant impact on your health and quality of life! We can help answer questions and concerns you may have about exercise, lifestyle, medications, diet, stress and anxiety which are common following a hospitalization. We monitor ECG and vital signs during exercise and discuss your progress with you and report to your physician. Cardiac Rehab is proven to help reduce readmissions, improve functional capacity and lower recurrence of problems with your heart. We have facilities at both [facility] and [facility]. At both locations we have street level parking which is free and our sites are easily accessible. For both [facility] you can contact us at . We invite you to call us with your questions or to get started in our program. If you have other questions or concerns be sure to ask your provider during your follow up visit. We look forward to seeing you there. Our locations: [facility] [address] [id number] [place] [address] [id number] - [facility] The following attachments cannot be sent through Care Everywhere.Heart Healthy Diet (Swedish)High Cholesterol Discharge Instructions (Swedish)Ticagrelor, ADULT (Swedish)Aspirin, ADULT (Swedish)Metoprolol, ADULT (Swedish)Rosuvastatin, ADULT (Swedish)Pantoprazole, ADULT (Swedish)documented in this encounter [facility] 06-25-2025 Nurse procedure note Sedation Plan ASA class 3 - patient with severe systemic disease Mallampati class: II - soft palate, uvula, fauces visible. Sedation plan: local anesthesia and moderate (conscious sedation) Risks, benefits, and alternatives discussed with patient. Immediate reassessment prior to sedation: Patient's status reviewed and vital signs assessed; acceptable to perform procedure and proceed to administer sedation as planned. Cosigned by Ronny Chase MD at 06/26/2025 11:44 AM EST [facility] Work Phone: 06-25-2025 Miscellaneous Notes Sedation Plan ASA class 3 - patient with severe systemic disease Mallampati class: II - soft palate, uvula, fauces visible. Sedation plan: local anesthesia and moderate (conscious sedation) Risks, benefits, and alternatives discussed with patient. Immediate reassessment prior to sedation: Patient's status reviewed and vital signs assessed; acceptable to perform procedure and proceed to administer sedation as planned. Cosigned by Ronny Chase MD at 06/26/2025 11:44 AM EST Care Management Progress Note Short Medical why still here: Heparin drip. NPO. CTS following. Plan to get PCI today. Planned Discharge Disposition: Home or Self Care Barriers/Today we still Wait: Administering IV medications, Clinical stability, Zanjero recommendations (comment), Procedure (comment) Length of Stay (Days): 2 GMLOS: No GMLOS Documented documented in this encounter [facility] 06-25-2025 Nurse Note Patient taken to labor operator tele monitor removed cleaned and placed in proper location [facility] 06-25-2025 Nurse Note Patient taken to labor operator tele monitor removed cleaned and placed in proper location Pt's aptt drawn at 3 am due to time change RN worked with Dr. Donovan and pharmacy to get appropriate heparin gtt order in due to pt already having the gtt running at 9 units/kg/hr from [facility]. documented in this encounter [facility] 06-25-2025 Note D/w pt and family re : revascularization plan and they both said plan for PCI today with Dr. Chase. Reviewed procedure, risks, benefits and she verbalized understanding. Answered her questions. Updated Dr. Chase. [facility] 06-25-2025 Note [facility] In-Patient Cardiology Service (ICS) Progress Note If patient is on ICS, for questions (see Product Owner Finder): 7:00 AM- 5:00 PM: Contact ICS Fellow 5:00 PM - 11:00 PM: Contact ICS Moonlighter 11:00 PM- 7:00 AM: Contact Night Call (HLU) Fellow HOSPITAL COURSE: Theresa Marx is a 59-year-old female with a history of T2DM, HTN, prior tobacco use, MDD/anxiety who presented to [facility] on 06/22/2025 found to have obstructive CAD with acute onset chest pain transferred to [facility] for PCI versus CABG. She was evaluated by cardiothoracic surgery and decision was made to proceed with PCI. OVN EVENTS: N.p.o. for left heart catheterization today SUBJECTIVE: Feels okay this morning, denies chest pain, shortness of breath, lightheadedness, palpitations. Awaiting left heart catheterization with plan for PCI today. Assessment/Plan Coronary artery disease Hyperlipidemia Underwent coronary angiogram at OSH found to have single-vessel obstructive CAD with proximal LAD and ostial D1 stenosis. Transferred to [facility] for heart team approach and after further shared decision making patient elected to proceed with PCI. Plan: - Continue aspirin 81 mg daily -Continue ticagrelor 90 mg twice daily - Continue rosuvastatin 40 mg daily - Continue metoprolol succinate 25 mg daily - Continue heparin infusion, n.p.o. for LHC/PCI today - Transthoracic echocardiogram pending Hypertension - Continue metoprolol as above Type 2 diabetes mellitus - Insulin SSI plus POCT before every meal/nightly MDD/anxiety - Continue venlafaxine XR 75 mg daily - Continue bupropion XL 150 mg daily Medications: Scheduled Meds[1] Infusion Medications: Continuous Meds[2] Physical Examination: Vitals: 06/24/25 2309 06/25/25 0222 06/25/25 0250 06/25/25 0720 BP: 114/52 124/66 120/66 BP Location: Left arm Left arm Left arm Patient Position: Lying Lying Lying Pulse: 79 79 84 Resp: 20 14 14 Temp: 36.8 ?C (98.2 ?F) 37.3 ?C (99.1 ?F) 36.3 ?C (97.4 ?F) TempSrc: Temporal Temporal Temporal SpO2: 96% 95% 96% Weight: 152 lb 6.4 oz (69.1 kg) Height: 5' 5 (1.651 m) Intake/Output Summary (Last 24 hours) at 06/25/2025 0806 Last data filed at 06/24/2025 2358 Gross per 24 hour Intake 1280 ml Output 1100 ml Net 180 ml Wt Readings from Last 3 Encounters: 06/25/25 152 lb 6.4 oz (69.1 kg) Physical Exam: GEN: NAD, AT/AC, MMM ENT: Oral mucosa is pink and moist CARDS: RRR, S1/S2, No R,M,G, JVD normal RESP: Poor air movement, decreased bibasilar breath sounds. No ronchi, wheezing VASC: 2+ Peripheral pulses ABD: NT, ND, BS+ Extremities: Trace LE edema Skin: Warm to touch and well perfused NEURO/PSYCH: A&O x 3, no focal deficits Laboratory Tests: Recent Labs 06/23/25 1950 06/24/25 0308 06/25/25 0225 NA 136 136 137 K 3.5 3.5 3.7 CL 105 105 105 CO2 25 28 26 BUN 10 10 16 CREATININE 0.66 0.67 0.66 Recent Labs 06/23/25194906/24/25 0308 06/25/25 0225 WBC 8.0 7.2 7.7 HGB 11.8 11.7 11.6* HCT 35.4 35.3 34.9* MCV 85.9 86.1 85.5 PLT 124* 132* 127* Recent Labs 06/23/251949 CKTOTAL 387* CKMB 20.2* Recent Labs 06/23/251949 BNP 668* Recent Labs 06/23/251949 TRIG 59 HDL 43* LDLCALC 155* CHOL 210* No results found for: LDLCHOLESTER Lab Results Component Value Date TSH 1.06/23/2025 No results found for: EFBP, PLVEF, LVEFPHYS, LVEF2D, EF No results found for this or any previous visit. Cardiac Tests: No results found for: EFBP, PLVEF, LVEFPHYS, LVEF2D, EF Anton Arteaga MD Date Of Service 06/25/2025 [1] aspirin, 81 mg, Oral, Daily buPROPion XL, 150 mg, Oral, Daily heparin, 4,000 Units, IntraVENous, Once influenza, 0.5 mL, IntraMUSCular, Once insulin lispro, 0-12 Units, SubCUTAneous, TID WC And insulin lispro, 0-12 Units, SubCUTAneous, Nightly metoprolol succinate XL, 25 mg, Oral, Daily rosuvastatin, 40 mg, Oral, Daily sodium chloride 0.9%, 5-40 mL, IntraVENous, q12h ticagrelor, 90 mg, Oral, BID venlafaxine XR, 75 mg, Oral, Daily [2] heparin, 5-30 Units/kg/hr, Last Rate: 10 Units/kg/hr (06/25/25 0709) [facility] 06-25-2025 Consult note Associated Order (s): IP CONSULT TO CARDIAC REHAB Received referral and reviewed chart. Unable to discuss Phase II Cardiopulmonary Rehab Referral with Theresa Marx at this time. Will follow to discuss program when appropriate. Patient will be contacted at home if discharged prior to discussion. [facility] 06-25-2025 Note Received referral an d reviewed chart. Unable to discuss Phase II Cardiopulmonary Rehab Referral with Theresa Lance at this time. Will follow to discuss program when appropriate. Patient will be contacted at home if discharged prior to discussion. [facility] 06-25-2025 Note Care Management Prog ress Note Short Medical why still here: Heparin drip. NPO. CTS following. Plan to get PCI today. Planned Discharge Disposition: Home or Self Care Barriers/Today we still Wait: Administering IV medications, Clinical stability, Zanjero recommendations (comment), Procedure (comment) Length of Stay (Days): 2 GMLOS: No GMLOS Documented [facility] 06-25-2025 Progress note Formatting of t his note might be different from the original. Care Management Progress Note Short Medical why still here: Heparin drip. NPO. CTS following. Plan to get PCI today. Planned Discharge Disposition: Home or Self Care Barriers/Today we still Wait: Administering IV medications, Clinical stability, Zanjero recommendations (comment), Procedure (comment) Length of Stay (Days): 2 GMLOS: No GMLOS Documented [facility] 06-24-2025 Note Brief Inpatient Card iology Service Progress Note Patient admitted overnight as a transfer from [facility] for consideration of PCI vs CABG in the setting of prox-LAD and ostial D1 stenoses. Denies recurrent chest pain and feels well. Plan -Interventional cardiology and CTS teams consulted. She is leaning toward PCI but would like to hear from our surgical team as well. -If no surgery, will tentatively plan for PCI tomorrow. NPO after midnight. -Continue heparin drip. Discontinued trending troponin -Echocardiogram pending Derek Henry MD Fellow, Cardiovascular Disease, PGY-6 [facility] 11-02-2025 Consult note Associated Order (s): IP CONSULT TO CARDIOTHORACIC SURGERY Images from the original note were not included. [facility]: Cardiothoracic Surgery Consultation Note PATIENT NAME: Theresa Marx : 1965 (59 y.o.) TODAY'S DATE: 06/24/2025 DATE OF ADMISSION: 06/23/2025 6:30 PM Reason for Consult: CAD Consulting Provider: Dr. Chase Subjective: CC: chest pain HPI: 59 yo female with PMH of HPL, T2DM, former tobacco use, anxiety, fibromyalgia. She initially presented to [facility] with acute onset chest pain. Admitted for NSTEMI with troponin rise, no significant ischemic changes on EKG. Underwent a LHC that showed multivessel CAD involving prox LAD at bifurcation of large Diag1. Per chart review she aso had TTE that showed normal LV size, LVEF 55%, no significant valve disease. She was transferred to [facility] on 06/23 for heart team approach. Patient lives in [place] with her but is currently visiting her daughters in [place]. She is typically active at baseline and is currently helping her daughter renovate a house. She denies prior cardiac history. Is a former smoker, quit many years ago, denies ETOH or drug use. 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 Review of Systems Constitutional: Negative for activity change, appetite change, diaphoresis, fatigue and fever. Respiratory: Negative for cough, shortness of breath and wheezing. Cardiovascular: Negative for chest pain, palpitations and leg swelling. Gastrointestinal: Negative for abdominal distention, abdominal pain, blood in stool, nausea and vomiting. Genitourinary: Negative for dysuria and hematuria. Skin: Negative for color change, pallor and rash. Allergies: Patient has no known allergies. Past Medical History: has no past medical history on file. Past Surgical History: has a past surgical history that includes Hysterectomy; Bladder repair; and removal gallbladder (historical). Social History: reports that she has never smoked. She has never used smokeless tobacco. She reports that she does not drink alcohol and does not use drugs. Family History: family history is not on file. Medications: Prior to Admission medications Medication Sig Start Date End Date Taking? Authorizing Provider buPROPion XL (Wellbutrin XL) 150 MG 24 hr tablet Take 150 mg by mouth daily. Do not crush, chew, or split. Yes Historical Provider, pioglitazone (Actos) 15 MG tablet Take 15 mg by mouth daily. Yes Historical Provider, Semaglutide (OZEMPIC, 1 MG/DOSE, SC) Inject under the skin. Yes Historical Provider, venlafaxine XR (Effexor XR) 75 MG 24 hr capsule Take 75 mg by mouth daily. Do not crush or chew. Yes Historical Provider, Objective: Vitals: BP: 127/75, MAP (mmHg): 92, Heart Rate: 74 Resp: 16 Temp: 36.6 C (97.9 F), Temp Source: Temporal Intake/Output Summary (Last 24 hours) at 06/24/2025 1108 Last data filed at 06/24/2025 1106 Gross per 24 hour Intake 1502.11 ml Output 2500 ml Net -997.89 ml Physical Exam Constitutional: General: She is not in acute distress. Appearance: Normal appearance. Cardiovascular: Rate and Rhythm: Normal rate and regular rhythm. Pulses: Normal pulses. Heart sounds: Normal heart sounds. No murmur heard. No friction rub. Pulmonary: Effort: Pulmonary effort is normal. Breath sounds: Normal breath sounds. Abdominal: General: Bowel sounds are normal. Palpations: Abdomen is soft. Tenderness: There is no abdominal tenderness. Musculoskeletal: Right lower leg: No edema. Left lower leg: No edema. Skin: General: Skin is warm and dry. Capillary Refill: Capillary refill takes less than 2 seconds. Neurological: Mental Status: She is alert. Diagnostics: Reviewed in EMR Labs: Reviewed in EMR BMP: Recent Labs 06/23/25 1950 06/24/25 0308 NA 136 136 K 3.5 3.5 CL 105 105 CO2 25 28 BUN 10 10 CREATININE 0.66 0.67 CALCIUM 8.4* 8.5* MG 1.9 -- PHOS 3.1 -- CBC: Recent Labs 06/23/25 1950 06/24/25 0308 WBC 8.0 7.2 HGB 11.8 11.7 HCT 35.4 35.3 PLT 124* 132* MCV 85.9 86.1 RDW 13.0 12.9 Assessment: CAD HPL T2DM Anxiety Former tobacco use Plan: CABG discussed with patient. Risk of surgery, anticipated benefits, and alternatives discussed. Patient educated on fdc mortality benefit and decreased risk of repeat revascularization with CABG over PCI of LAD. Patient wishes to proceed with PCI. I did notify Cardiology team of her wishes. STS Score: Procedure Type: Isolated CABG Perioperative Outcome Estimate % Operative Mortality 1.09% Morbidity & Mortality 4.62% Stroke 0.759% Renal Failure 0.482% Reoperation 2.17% Prolonged Ventilation 2.33% Deep Sternal Wound Infection 0.187% Long Hospital Stay (>14 days) 2.4% Short Hospital Stay (<6 days)* 60% Personally Reviewed: [x]Epic notes [x]Radiology studies [x]Labs [x]EKG []Other A total of 38 minutes were spent between the syiz-zz-sdgj encounter, physical exam, reviewing the medical history, coordinating the patient's care, counseling/educating the patient, ordering medications/test/procedures, interpreting results and documenting clinical information in the patients electronic health record on the day of the encounter. The patient was seen and examined independently and relevant data reviewed by myself. A full chart review was performed. Cosigned by Anthony Cullen MD at 06/25/2025 2:04 PM EST Associated attestation - Anthony Cullen MD - 06/25/2025 2:04 PM EST DOS: 06/24/2025 I personally performed a agsj-yw-yedp diagnostic evaluation on this patient I agree with the findings and plan of care as documented by the RUSSEL or resident. There has been no change in the physical exam or findings unless otherwise noted below. A total of 60 minutes were spent between the braw-aj-umrs encounter, physical exam, reviewing the medical history, coordinating the patient's care, counseling/educating the patient, ordering medications/test/procedures, interpreting results and documenting clinical information in the patients electronic health record on the day of the encounter. The patient was seen and examined independently and relevant data reviewed by myself. A full chart review was performed. This is a 59-year-old patient who was found to have an elevated troponin, non-ST segment elevation UT who underwent left heart catheter demonstrated in LAD/diagonal 1 stenosis. She was transferred for further evaluation. While surgery remains an option, she has chosen to proceed with PCI/stent. We discussed the benefits and durability of left internal mammary artery grafting to the LAD. Patient is a Pentecostalism and would like to minimize the potential chance for blood transfusions. I did assure her that surgery could potentially be possible in the future, if it was required. No surgical intervention is planned. Patient wishes to pursue PCI/stenting. [employer] Work Phone: 06-24-2025 Consult note Associated Order (s): IP CONSULT TO CARDIOLOGY [facility] [place] [facility] Interventional Cardiology Consult Note Reason for Consult/Chief Complaint: Obstructive focal LAD bifurcation lesion on LHC at OSH, evaluate for options PCI vs CABG Referring provider: Dr. Hendricks Established switch cleaner: None History of Present Illness: Theresa Marx is a 59 y.o. female with a history of agy-aefwowk-pbptbfnfh diabetes mellitus, HTN, prior tobacco use, anxiety was admitted to [facility] with NSTEMI and acute chest pain on Wednesday. She underwent a left heart cath at [facility] (angiographic films in PACS), films were personally reviewed showing severe focal stenosis of the proximal LAD at bifurcation with large first diagonal. Ostial diagonal is large caliber vessel with focal moderate to severe lesion. LAD has ENEDINA 2-3 flow. No other significant disease in dominant RCA, LCX is small caliber vessel with mild diffuse disease. LV gram showed normal LVEF ~65-70% with no wall motion abnormalities in anterior, anterolateral and inferior parsons. She is transferred to [facility] for evaluation for heart team approach for PCI versus CABG. EKG shows sinus rhythm with left bundle branch block. She is hemodynamically stable, chest pain-free on heparin drip. She has no complaints. Labs reviewed normal renal function, mildly abnormal LFTs. LDL of 155, A1c of 5.7. 59F. CRF + DM2, HTN. Remote smoker. HPI: Presented w 36 hrs CP w minimal exertion. No prior CV Hx. Cath = Prox LAD and ostial D1 stenoses. (?Possible separate ostium LCF vs very small LCF system). Normal RCA. Normal LV function on LVgram. Transferred to [facility] from [facility] for Team Approach to care. Assessment/Plan HF NYHA Class [] I [x] II [] III [] IV []Unable to assess NSTEMI with obstructive single vessel CAD: Risk factors: Prior smoker, HTN, NIDDM. Underwent diagnostic angiogram at [facility]. Angiographic films in PACS, were personally reviewed showing severe focal stenosis of the proximal LAD at bifurcation with large first diagonal. Ostial diagonal is large caliber vessel with focal moderate to severe lesion. LAD has ENEDINA 2-3 flow. No other significant disease in dominant RCA, LCX is small caliber vessel with mild diffuse disease. LV gram showed normal LVEF ~65-70% with no wall motion abnormalities in anterior, anterolateral and inferior parsons. Her Syntax score is low. A1c is 5.7. Both options of CABG and PCI were discussed with patient. Patient LAD lesion is amicable to PCI which was offered. Risks and benefits of PCI were discussed including risk of future ISR needing repeat revascularization. Plan for CTS to evaluate the patient today and pending final decision by patient. Primary team informed. Continue Heparin ggt for 24hrs. If patient choose to proceed with PCI, start on brilinta load 180mg followed by 90mg BID. Continue aspirin and high intensity statin. Thanks for involving us in patient care. I have reviewed the cath films. The bifurcation lesion LAD-D is approachable percutaneously. Single vessel CAD in a diabetic with prox LAD. Low SYNTAX score and good LV function. Equivalence as far as longevity with CABG v PCI. CABG would result in less chance of another procedure. Higher risk of ISR and repeat PCI with intervention. Intervention would result in shorter hospital stay and quicker return to activities. Patient to meet with CTS and decide on course of treatment. Medications: [Scheduled Meds] [Scheduled Meds] aspirin, 81 mg, Oral, Daily buPROPion XL, 150 mg, Oral, Daily heparin, 4,000 Units, IntraVENous, Once influenza, 0.5 mL, IntraMUSCular, Once insulin lispro, 0-12 Units, SubCUTAneous, TID WC And insulin lispro, 0-12 Units, SubCUTAneous, Nightly metoprolol succinate XL, 25 mg, Oral, Daily rosuvastatin, 40 mg, Oral, Daily sodium chloride 0.9%, 5-40 mL, IntraVENous, q12h venlafaxine XR, 75 mg, Oral, Daily Infusion Medications: [Continuous Meds] [Continuous Meds] heparin, 5-30 Units/kg/hr, Last Rate: 8 Units/kg/hr (06/24/25 0705) Physical Examination: Vitals: 06/23/25 2240 06/24/25 0219 06/24/25 0242 06/24/25 0749 BP: 138/73 143/78 121/67 BP Location: Right arm Left arm Left arm Patient Position: Lying Lying Lying Pulse: 80 87 86 Resp: 16 16 16 Temp: 37.1 C (98.7 F) 36.8 C (98.3 F) 36.4 C (97.5 F) TempSrc: Temporal Temporal Temporal SpO2: 97% 95% 97% Weight: 151 lb 6.4 oz (68.7 kg) Intake/Output Summary (Last 24 hours) at 06/24/2025 0816 Last data filed at 06/24/2025 0749 Gross per 24 hour Intake 1502.11 ml Output 2100 ml Net -597.89 ml Wt Readings from Last 3 Encounters: 06/24/25 151 lb 6.4 oz (68.7 kg) Physical Exam Constitutional: General: She is not in acute distress. Appearance: Normal appearance. She is not ill-appearing. HENT: Mouth/Throat: Mouth: Mucous membranes are moist. Cardiovascular: Rate and Rhythm: Normal rate and regular rhythm. Pulses: Normal pulses. Heart sounds: Normal heart sounds. No murmur heard. Pulmonary: Effort: Pulmonary effort is normal. Breath sounds: Normal breath sounds. No wheezing or rales. Abdominal: General: Abdomen is flat. Palpations: Abdomen is soft. Musculoskeletal: Right lower leg: No edema. Left lower leg: No edema. Skin: General: Skin is warm and dry. Capillary Refill: Capillary refill takes less than 2 seconds. Neurological: General: No focal deficit present. Mental Status: She is alert and oriented to person, place, and time. Psychiatric: Mood and Affect: Mood normal. Behavior: Behavior normal. Laboratory Tests: TROPONIN I, CONVENTIONAL SENSITIVITY CK Date Value Ref Range Status 06/23/2025 387 (H) 30 - 185 U/L Final CKMB Date Value Ref Range Status 06/23/2025 20.2 (H) <=3.4 ng/mL Final TROPONIN I, HIGH SENSITIVITY Troponin HS Serial Baseline Date Value Ref Range Status 06/23/2025 10,391 (HH) <=14 ng/L Final Comment: In individuals presenting with symptoms > 2h, a baseline troponin <= 5 ng/L suggests acute cardiac injury is unlikely and further serial testing is generally not indicated. 2h Troponin HS (Serial 2nd Troponin) Date Value Ref Range Status 06/23/2025 8,371 (HH) <=14 ng/L Final Comment: Rising or falling troponin delta greater than 15 ng/L as compared to baseline value is significant for acute cardiac injury. No results found for: TROPDELTBASE No results found for: TROPHS3 No results found for: TROPDELTSEC Recent Labs 06/23/25194906/24/25307 NA 136 136 K 3.5 3.5 CL 105 105 CO2 25 28 BUN 10 10 CREATININE 0.66 0.67 EGFR >90.0 >90.0 Recent Labs 06/23/25194906/24/25307 WBC 8.0 7.2 HGB 11.8 11.7 HCT 35.4 35.3 MCV 85.9 86.1 PLT 124* 132* Lab Results Component Value Date HGBA1C 5.7 (H) 06/23/2025 Lab Results Component Value Date TSH 1.01 06/23/2025 Lab Results Component Value Date CHOL 210 (H) 06/23/2025 Lab Results Component Value Date HDL 43 (L) 06/23/2025 Lab Results Component Value Date LDLCALC 155 (H) 06/23/2025 Lab Results Component Value Date TRIG 59 06/23/2025 No results found for: CHOLHDL No results found for: LDLCHOLESTER Recent Labs 06/23/251949 BNP 668* No results for input(s): INR in the last 72 hours. Results from last 7 days Lab Units 06/24/2530706/23/251949 AST U/L 101* 113* ALT U/L 43* 46* No results found for: IRON, TIBC, FERRITIN Radiology: CXR: personally reviewed: Cardiac Tests Personally Reviewed: Last EKG 06/23/25 ECG 12-LEAD (Preliminary) This result has not been signed. Information might be incomplete. Impression Sinus rhythm Left bundle branch block ST elevation secondary to IVCD Telemetry findings: SR Reports reviewed: Last Echo No results found for this or any previous visit. Last Cath No results found for this or any previous visit. Last Stress Test No results found for this or any previous visit. Last EP study No results found for this or any previous visit. No results found for: EFBP, PLVEF, LVEFPHYS, LVEF2D, EF Brian Andrade MD DATE of SERVICE: 06/24/2025 I, Dr. Ronny Chase, saw and evaluated the patient on 06/24/2025. I personally obtained the kauffman and critical portions of the history and physical exam. I reviewed the labs, imaging studies, and electronic medical record. I reviewed the fellow's documentation, and discussed the patient with the fellow. I agree with the fellow's medical decision making and have edited the note to reflect my clinical findings and my assessment and plan. [employer] Work Phone: 06-24-2025 Nurse Note Pt's aptt drawn at 3 am due to time change [employer] [facility] 06-23-2025 Nurse Note RN worked with Dr. Donovan and pharmacy to get appropriate heparin gtt order in due to pt already having the gtt running at 9 units/kg/hr from [facility]. [employer] 06-23-2025 History and physical note [facility] [place] [facility] Cardiology/In-Patient Cardiology Service (ICS) History and Physical If patient is on ICS, for questions (see Product Owner Finder): 7:00 AM- 5:00 PM: Contact ICS Fellow 5:00 PM - 11:00 PM: Contact ICS Moonlighter 11:00 PM- 7:00 AM: Contact Night Call (HLU) Fellow Chief Complaint: NSTEMI with LAD stenosis History of Present Illness: Theresa Marx is a 59 y.o. female with HLD, DM2, ex-smoker transferred from [facility] after presenting with acute chest pain and sharpness in mid-sternal to epigastric non radiating yesterday night for more than 20 minutes. Upon presentation to [facility], her ECG does not any significant ischemic changes but troponin uma from 29>>60>>129>>340s. Patient underwent LHC today that showed 90% ostial LAD and 80% proximal LAD stenoses with normal LV function on LVgram. She has remained chest pain free since then on heparin gtt. Shared Services Manager at [facility] would like patient to be transferred to [facility] for heart team approach and spoke with Dr. Cullen from CTS and Dr. Montgomery from ICS. Patient got here around 7PM. Upon my assessment, patient denied any CP, chest discomfort, SOB, orthopnea, heart palpitations, dizziness or lightheadedness. She was HDS. However her ECG showed new LBBB with ST-T wave changes on leads V1-V3, I, and AVL that concern for worsening UT. I directly discussed these findings with Interventional Cardiology team Dr. Chase and Dr. Andrade and patient deemed appropriate to remain on the floor and remain on heparin gtt until CABG evaluation and no urgent PCI is needed. Patient denied any discomfort at this time. Patient smoked 1/2ppd in the past but quit many years ago, denied etoh, drug use. Denied any family hx of heart attack or premature CAD. Assessment/Plan HF NYHA Class [] I [] II [] III [] IV []Unable to assess NSTEMI/CAD 2/2 LAD stenosis with history of DM, HLD, tobacco use - EKG consistent with LBBB and ST-T changes in V1-V3, I , AVL. Reviewed by Interventional team - Troponin 374 (at [facility]) -> 10K - LHC showed 90% ostial LAD and 80% proximal LAD stenoses. Reviewed by interventional team. - Heparin gtt with APTT q6 hours and Nitroglycerin SL prn for chest pain - EKG now and in AM - Start ASA 81mg every day , Crestor 40mg every day - Hold ACEi until obtained echocardiogram. - Complete Echo ordered - Cardiac rehab consult - Cardiac diet - Troponin q6 until downtrending - Lipid Panel/Hemoglobin A1c - Daily CBC/BMP/Mg/Phos - Consider CTS consult in the AM for CABG evaluation as [facility] switch cleaner Dr. Shelton transferred for heart team approach and spoke with Dr. Cullen. DM2 - A1c checked - Pt on pioglitazone at home. Insulin management while inpt. - Will start MDSSI with BG 140-180. - hypoglycemia protocol Depression - continue home med Wellbutrin and venlafaxine. Medications: Scheduled Meds[1] Infusion Medications: Continuous Meds[2] Physical Examination: Vitals: Vitals: 06/23/25 1923 06/23/251940 BP: 143/83 BP Location: Right arm Patient Position: Sitting Pulse: 79 Resp: 16 Temp: 37 C (98.6 F) TempSrc: Temporal SpO2: 97% Weight: 150 lb 12.8 oz (68.4 kg) Intake/Output Summary (Last 24 hours) at 06/23/20252033 Last data filed at 06/23/20251940 Gross per 24 hour Intake -- Output 400 ml Net -400 ml Wt Readings from Last 3 Encounters: 06/23/25 150 lb 12.8 oz (68.4 kg) Physical Exam Constitutional: No distress. well nourished. well hydrated Psychiatric: A &O x 3. Medical insight good NMT: Oral mucosa is pink and moist Neck: no JVD. Respiratory: Lungs are CTA Cardiac exam: Rhythm: RRR ; Normal S1 and S2 Murmur: none Other: No rub; no gallop. Vasc: Peripheral pulses present Abdomen: normal BS no tenderness or distention Extremities: no LE edema Skin: Warm to touch and well perfused Laboratory Tests: TROPONIN I, CONVENTIONAL SENSITIVITY No results found for: CKTOTAL, CKMB, CKMBINDEX, TROPONINI TROPONIN I, HIGH SENSITIVITY No results found for: TROPHSBASE No results found for: TROPHS2 No results found for: TROPDELTBASE No results found for: TROPHS3 No results found for: TROPDELTSEC Recent Labs 06/23/251949 NA 136 K 3.5 CL 105 CO2 25 BUN 10 CREATININE 0.66 Recent Labs 06/23/251949 WBC 8.0 HGB 11.8 HCT 35.4 MCV 85.9 PLT 124* No results found for: HGBA1C No results found for: TSH Lab Results Component Value Date CHOL 210 (H) 06/23/2025 Lab Results Component Value Date HDL 43 (L) 06/23/2025 Lab Results Component Value Date LDLCALC 155 (H) 06/23/2025 Lab Results Component Value Date TRIG 59 06/23/2025 No results found for: CHOLHDL No results found for: LDLCHOLESTER Results from last 7 days Lab Units 06/23/251949 AST U/L 113* ALT U/L 46* No lab exists for component: NTPROBNP No components found for: LVEF, LVEFMODE Radiology: CXR (image reviewed): Cardiac Tests Personally Reviewed: Last EKG 06/23/25 ECG 12-LEAD (Preliminary) This result has not been signed. Information might be incomplete. Impression Sinus rhythm Left bundle branch block ST elevation secondary to IVCD Tracing reviewed. Telemetry findings: NSR Reports reviewed: Last Echo No results found for this or any previous visit. Last Cath No results found for this or any previous visit. Last Stress Test No results found for this or any previous visit. Last EP study No results found for this or any previous visit. No results found for: EFBP, PLVEF, LVEFPHYS, LVEF2D, EF Calculate for Type 1 UT: KENDALL SCORE: 103 --> 4% risk KENDALL Score Link Past Medical History: Medical History[3] Past Surgical History Surgical History[4] Family History: Family History[5] Social History: Social History[6] Yaritza Donovan DO DATE of SERVICE: 06/23/2025 I, Dr. Hendricks, saw and evaluated the patient on 06/24/25. I personally obtained the kauffman and critical portions of the history and physical exam. I reviewed the chart, the fellow's documentation, and discussed the patient with the fellow. I agree with the fellow's medical decision making and have edited the note to reflect my clinical findings and my assessment and plan. Patient is chest pain free. Vital signs are stable. LHC showed 90% ostial LAD and 80% proximal LAD stenoses with normal LV function on LVgram. -plan for ? PCI vs CABG -keep NPO at midnight [1] aspirin, 81 mg, Oral, Daily [START ON 06/24/2025] buPROPion XL, 150 mg, Oral, Daily heparin, 4,000 Units, IntraVENous, Once influenza, 0.5 mL, IntraMUSCular, Once [START ON 06/24/2025] insulin lispro, 0-12 Units, SubCUTAneous, TID WC And insulin lispro, 0-12 Units, SubCUTAneous, Nightly rosuvastatin, 40 mg, Oral, Daily sodium chloride 0.9%, 5-40 mL, IntraVENous, q12h [START ON 06/24/2025] venlafaxine XR, 75 mg, Oral, Daily [2] heparin, 5-30 Units/kg/hr [3] No past medical history on file. [4] No past surgical history on file. [5] No family history on file. [6] [facility] Work Phone: 06-23-2025 Note [facility] [place] [facility] Cardiology/In-Patient Cardiology Service (ICS) History and Physical If patient is on ICS, for questions (see Product Owner Finder): 7:00 AM- 5:00 PM: Contact ICS Fellow 5:00 PM - 11:00 PM: Contact ICS Moonlighter 11:00 PM- 7:00 AM: Contact Night Call (HLU) Fellow Chief Complaint: NSTEMI with LAD stenosis History of Present Illness: Theresa Marx is a 59 y.o. female with HLD, DM2, ex-smoker transferred from [facility] after presenting with acute chest pain and sharpness in mid-sternal to epigastric non radiating yesterday night for more than 20 minutes. Upon presentation to [facility], her ECG does not any significant ischemic changes but troponin uma from 29>>60>>129>>340s. Patient underwent LHC today that showed 90% ostial LAD and 80% proximal LAD stenoses with normal LV function on LVgram. She has remained chest pain free since then on heparin gtt. Shared Services Manager at [facility] would like patient to be transferred to [facility] for heart team approach and spoke with Dr. Cullen from CTS and Dr. Montgomery from ICS. Patient got here around 7PM. Upon my assessment, patient denied any CP, chest discomfort, SOB, orthopnea, heart palpitations, dizziness or lightheadedness. She was HDS. However her ECG showed new LBBB with ST-T wave changes on leads V1-V3, I, and AVL that concern for worsening UT. I directly discussed these findings with Interventional Cardiology team Dr. Chase and Dr. Andrade and patient deemed appropriate to remain on the floor and remain on heparin gtt until CABG evaluation and no urgent PCI is needed. Patient denied any discomfort at this time. Patient smoked 1/2ppd in the past but quit many years ago, denied etoh, drug use. Denied any family hx of heart attack or premature CAD. Assessment/Plan HF NYHA Class [] I [] II [] III [] IV []Unable to assess NSTEMI/CAD 2/2 LAD stenosis with history of DM, HLD, tobacco use - EKG consistent with LBBB and ST-T changes in V1-V3, I , AVL. Reviewed by Interventional team - Troponin 374 (at [facility]) -> 10K - LHC showed 90% ostial LAD and 80% proximal LAD stenoses. Reviewed by interventional team. - Heparin gtt with APTT q6 hours and Nitroglycerin SL prn for chest pain - EKG now and in AM - Start ASA 81mg every day , Crestor 40mg every day - Hold ACEi until obtained echocardiogram. - Complete Echo ordered - Cardiac rehab consult - Cardiac diet - Troponin q6 until downtrending - Lipid Panel/Hemoglobin A1c - Daily CBC/BMP/Mg/Phos - Consider CTS consult in the AM for CABG evaluation as [facility] switch cleaner Dr. Shelton transferred for heart team approach and spoke with Dr. Cullen. DM2 - A1c checked - Pt on pioglitazone at home. Insulin management while inpt. - Will start MDSSI with BG 140-180. - hypoglycemia protocol Depression - continue home med Wellbutrin and venlafaxine. Medications: Scheduled Meds[1] Infusion Medications: Continuous Meds[2] Physical Examination: Vitals: Vitals: 06/23/253 06/23/251940 BP: 143/83 BP Location: Right arm Patient Position: Sitting Pulse: 79 Resp: 16 Temp: 37 ?C (98.6 ?F) TempSrc: Temporal SpO2: 97% Weight: 150 lb 12.8 oz (68.4 kg) Intake/Output Summary (Last 24 hours) at 06/23/20252033 Last data filed at 06/23/20251940 Gross per 24 hour Intake -- Output 400 ml Net -400 ml Wt Readings from Last 3 Encounters: 06/23/25 150 lb 12.8 oz (68.4 kg) Physical Exam Constitutional: No distress. well nourished. well hydrated Psychiatric: A &O x 3. Medical insight good NMT: Oral mucosa is pink and moist Neck: no JVD. Respiratory: Lungs are CTA Cardiac exam: Rhythm: RRR ; Normal S1 and S2 Murmur: none Other: No rub; no gallop. Vasc: Peripheral pulses present Abdomen: normal BS no tenderness or distention Extremities: no LE edema Skin: Warm to touch and well perfused Laboratory Tests: TROPONIN I, CONVENTIONAL SENSITIVITY No results found for: CKTOTAL, CKMB, CKMBINDEX, TROPONINI TROPONIN I, HIGH SENSITIVITY No results found for: TROPHSBASE No results found for: TROPHS2 No results found for: TROPDELTBASE No results found for: TROPHS3 No results found for: TROPDELTSEC Recent Labs 06/23/251949 NA 136 K 3.5 CL 105 CO2 25 BUN 10 CREATININE 0.66 Recent Labs 06/23/251949 WBC 8.0 HGB 11.8 HCT 35.4 MCV 85.9 PLT 124* No results found for: HGBA1C No results found for: TSH Lab Results Component Value Date CHOL 210 (H) 06/23/2025 Lab Results Component Value Date HDL 43 (L) 06/23/2025 Lab Results Component Value Date LDLCALC 155 (H) 06/23/2025 Lab Results Component Value Date TRIG 59 06/23/2025 No results found for: CHOLHDL No results found for: LDLCHOLESTER Results from last 7 days Lab Units 06/23/25 1950 AST U/L 113* ALT U/L 46* No lab exists for component: NTPROBNP No components found for: LVEF, LVEFMODE R (more content not included)... [facility] 06-23-2025 History and physical note [facility] [place] [facility] [place]/In-Patient Cardiology Service (ICS) History and Physical If patient is on ICS, for questions (see Product Owner Finder): 7:00 AM- 5:00 PM: Contact I[facility] Fellow 5:00 PM - 11:00 PM: Contact ICS Moonlighter 11:00 PM- 7:00 AM: Contact Night Call (HLU) Fellow Chief Complaint: NSTEMI with LAD stenosis History of Present Illness: Theresa Marx is a 59 y.o. female with HLD, DM2, ex-smoker transferred from [facility] after presenting with acute chest pain and sharpness in mid-sternal to epigastric non radiating yesterday night for more than 20 minutes. Upon presentation to [facility], her ECG does not any significant ischemic changes but troponin uma from 29>>60>>129>>340s. Patient underwent LHC today that showed 90% ostial LAD and 80% proximal LAD stenoses with normal LV function on LVgram. She has remained chest pain free since then on heparin gtt. Shared Services Manager at [facility] would like patient to be transferred to [facility] for heart team approach and spoke with Dr. Cullen from [facility] and Dr. Montgomery from [facility]. Patient got here around 7PM. Upon my assessment, patient denied any CP, chest discomfort, SOB, orthopnea, heart palpitations, dizziness or lightheadedness. She was HDS. However her ECG showed new LBBB with ST-T wave changes on leads V1-V3, I, and AVL that concern for worsening UT. I directly discussed these findings with Interventional Cardiology team Dr. Chase and Dr. Andrade and patient deemed appropriate to remain on the floor and remain on heparin gtt until CABG evaluation and no urgent PCI is needed. Patient denied any discomfort at this time. Patient smoked 1/2ppd in the past but quit many years ago, denied etoh, drug use. Denied any family hx of heart attack or premature CAD. Assessment/Plan HF NYHA Class [] I [] II [] III [] IV []Unable to assess NSTEMI/CAD 2/2 LAD stenosis with history of DM, HLD, tobacco use - EKG consistent with LBBB and ST-T changes in V1-V3, I , AVL. Reviewed by Interventional team - Troponin 374 (at [facility]) -> 10K - [facility] showed 90% ostial LAD and 80% proximal LAD stenoses. Reviewed by interventional team. - Heparin gtt with APTT q6 hours and Nitroglycerin SL prn for chest pain - EKG now and in AM - Start ASA 81mg every day , Crestor 40mg every day - Hold ACEi until obtained echocardiogram. - Complete Echo ordered - Cardiac rehab consult - Cardiac diet - Troponin q6 until downtrending - Lipid Panel/Hemoglobin A1c - Daily CBC/BMP/Mg/Phos - Consider CTS consult in the AM for CABG evaluation as [facility] switch cleaner Dr. Shelton transferred for heart team approach and spoke with Dr. Cullen. DM2 - A1c checked - Pt on pioglitazone at home. Insulin management while inpt. - Will start MDSSI with BG 140-180. - hypoglycemia protocol Depression - continue home med Wellbutrin and venlafaxine. Medications: Scheduled Meds[1] Infusion Medications: Continuous Meds[2] Physical Examination: Vitals: Vitals: 06/23/25192206/23/251940 BP: 143/83 BP Location: Right arm Patient Position: Sitting Pulse: 79 Resp: 16 Temp: 37 C (98.6 F) TempSrc: Temporal SpO2: 97% Weight: 150 lb 12.8 oz (68.4 kg) Intake/Output Summary (Last 24 hours) at 06/23/20252033 Last data filed at 06/23/20251940 Gross per 24 hour Intake -- Output 400 ml Net -400 ml Wt Readings from Last 3 Encounters: 06/23/25 150 lb 12.8 oz (68.4 kg) Physical Exam Constitutional: No distress. well nourished. well hydrated Psychiatric: A &O x 3. Medical insight good NMT: Oral mucosa is pink and moist Neck: no JVD. Respiratory: Lungs are CTA Cardiac exam: Rhythm: RRR ; Normal S1 and S2 Murmur: none Other: No rub; no gallop. Vasc: Peripheral pulses present Abdomen: normal BS no tenderness or distention Extremities: no LE edema Skin: Warm to touch and well perfused Laboratory Tests: TROPONIN I, CONVENTIONAL SENSITIVITY No results found for: CKTOTAL, CKMB, CKMBINDEX, TROPONINI TROPONIN I, HIGH SENSITIVITY No results found for: TROPHSBASE No results found for: TROPHS2 No results found for: TROPDELTBASE No results found for: TROPHS3 No results found for: TROPDELTSEC Recent Labs 06/23/251949 NA 136 K 3.5 CL 105 CO2 25 BUN 10 CREATININE 0.66 Recent Labs 06/23/251949 WBC 8.0 HGB 11.8 HCT 35.4 MCV 85.9 PLT 124* No results found for: HGBA1C No results found for: TSH Lab Results Component Value Date CHOL 210 (H) 06/23/2025 Lab Results Component Value Date HDL 43 (L) 06/23/2025 Lab Results Component Value Date LDLCALC 155 (H) 06/23/2025 Lab Results Component Value Date TRIG 59 06/23/2025 No results found for: CHOLHDL No results found for: LDLCHOLESTER Results from last 7 days Lab Units 06/23/251949 AST U/L 113* ALT U/L 46* No lab exists for component: NTPROBNP No components found for: LVEF, LVEFMODE Radiology: CXR (image reviewed): Cardiac Tests Personally Reviewed: Last EKG 06/23/25 ECG 12-LEAD (Preliminary) This result has not been signed. Information might be incomplete. Impression Sinus rhythm Left bundle branch block ST elevation secondary to IVCD Tracing reviewed. Telemetry findings: NSR Reports reviewed: Last Echo No results found for this or any previous visit. Last Cath No results found for this or any previous visit. Last Stress Test No results found for this or any previous visit. Last EP study No results found for this or any previous visit. No results found for: EFBP, PLVEF, LVEFPHYS, LVEF2D, EF Calculate for Type 1 UT: KENDALL SCORE: 103 --> 4% risk KENDALL Score Link Past Medical History: Medical History[3] Past Surgical History Surgical History[4] Family History: Family History[5] Social History: Social History[6] Yaritza Donovan DO DATE of SERVICE: 06/23/2025 I, Dr. Hendricks, saw and evaluated the patient on 06/24/25. I personally obtained the kauffman and critical portions of the history and physical exam. I reviewed the chart, the fellow's documentation, and discussed the patient with the fellow. I agree with the fellow's medical decision making and have edited the note to reflect my clinical findings and my assessment and plan. Patient is chest pain free. Vital signs are stable. LHC showed 90% ostial LAD and 80% proximal LAD stenoses with normal LV function on LVgram. -plan for ? PCI vs CABG -keep NPO at midnight [1] aspirin, 81 mg, Oral, Daily [START ON 06/24/2025] buPROPion XL, 150 mg, Oral, Daily heparin, 4,000 Units, IntraVENous, Once influenza, 0.5 mL, IntraMUSCular, Once [START ON 06/24/2025] insulin lispro, 0-12 Units, SubCUTAneous, TID WC And insulin lispro, 0-12 Units, SubCUTAneous, Nightly rosuvastatin, 40 mg, Oral, Daily sodium chloride 0.9%, 5-40 mL, IntraVENous, q12h [START ON 06/24/2025] venlafaxine XR, 75 mg, Oral, Daily [2] heparin, 5-30 Units/kg/hr [3] No past medical history on file. [4] No past surgical history on file. [5] No family history on file. [6] documented in this encounter [facility] 06-23-2025 Note [facility] Medical Records Department [address] [place] [address] Discharge Summary 06/23/25 1600 MR#: [id number] Acct: [id number] Name: THERESA MARX Rep #: [id number] : 1965 59 From: Gurwinder Zavala MD PCP: ABELINO VELEZ Status:ADM KENNEDY Location: [place] [address] Providers Date of Admission: 06/22/25 Primary Care Physician: ABELINO VELEZ Consultations 06/22/25 23:14 Consult: Cardiology Routine Consulting Provider: Jack Shelton Reason for Consult: NSTEMI EMERGENT Consult: No MD Notified: Yes Date Notified: 06/22/25 Time Notified: 23:15 Method of Notification: Text Reason For Visit: CHEST PAIN Diagnosis Discharge Diagnosis (1) Chest pain: Status: Acute Code(s): R07.9 - Chest pain, unspecified Medications at Discharge Home Medications bupropion HCl 150 mg 24 hr tablet, extended release 150 mg PO DAILY 06/22/25 pioglitazone 15 mg tablet 15 mg PO DAILY 06/22/25 venlafaxine 75 mg capsule,extended release 24 hr 75 mg PO DAILY 06/22/25 Hospital Course Operations None Procedures 2-D Echocardiogram and Cardiac catheterization Summary of Care Provided Minutes Spent on Discharge: 37 Hospital Course: Per HPI: The patient is a 59 y/o F w/ PMHx: Diabetes mellitus type II, Former tobacco use, Anxiety and Depression who presents to the [facility] ED on 06/22/25 with history of 3 to 4 days of general fatigue, malaise and URI type symptoms with headache, congestion, rhinorrhea then with onset on day of ED presentation at approximately 3:30 in the afternoon midsternal chest discomfort initially more sharp rated 4-6 out of 10 in severity eventually subsiding into a more dull aching 2-3 out of 10 in severity however this was constant and more pressure-like in nature prompting eventual ED evaluation with no associated dyspnea, diaphoresis, nausea or emesis. In the ED patient notes that she had continued to improve further however she did get up to use the restroom the ED and did have an increase in the discomforts with more sharpin addition to pressure-like sensation but is now improving given her rest. Patient notes the discomfort occurred at rest. Patient notes that everyone in the household has had an upper respiratory infection. Workup in the ED included T96.5, heart rate 80, BP 167/75, respiratory 18, 99% on room air with most recent repeat vitals heart rate 86, BP 154/71, respiratory rate 21, 99% on room air, CBC with WBC 7.7, hemoglobin 12.7, platelet 131 without marked shift, D-dimer 0.51 less normal for age, BUN/Cr 12/0.1, GFR 83, initial troponin 29 with repeat delta 60, chest x-ray with no acute cardiopulmonary findings, EKG with sinus rhythm with nonspecific ST changes with no acute evidence of ischemia. In the ED patient ministered full- strength aspirin therapy. Hospital Course: 1. Non-STEMI???59-year-old female presents to the hospital with chest pain that started on the day of admission. She has been having some generalized fatigue and malaise and concern for upper respiratory infection which was negative on a viral panel. She did have rising troponin so she had placed on a heparin drip and cardiology was consulted. An echocardiogram today demonstrated an EF of 55% with wall motion abnormalities and the inferior basal region. Cardiac catheterization demonstrated a 90% stenosis in ostial LAD as well as a proximal LAD stenosis of 80% prior to bifurcation that involves part of the distal left main. Given the concern for these findings cardiology organize transfer to [facility] to be evaluated by cardiothoracic surgery. I discussed the plan for transfer and she expressed understanding of the risks and benefits of going to a higher level of care, she is a [employer] and has indicated refusal for any blood products. Will continue with the heparin drip pending transportation, she is also on aspirin 81 mg, Lipitor 80 mg, and lisinopril 2.5 mg daily, these are all new medications started on this admission. She does have a history of anxiety and depression as well as diabetes these are chronic medical condition which complicates her care. Weight / BMI Weight Weight: 155 lb 3.287 oz Body Mass Index (BMI) 25.8 ABG / Lab / Microbiology Data 06/23/25 05:55 06/23/25 05:55 Laboratory: Laboratory Results - last 24 hr 06/22/25 18:35: WBC 7.7, RBC 4.45, Hgb 12.7, Hct 38.2, MCV 85.8, MCH 28.5, MCHC 33.2, RDW Std Deviation 40.4, RDW Coeff of Qasim 12.9, Plt Count 131 L, MPV 10.6, Immature Gran % (Auto) 0.300, Neut % (Auto) 76.7 H, Lymph % (Auto) 13.7 L, [place] % (Auto) 6.5, Eos % (Auto) 2.3, Baso % (Auto) 0.5, Absolute Neuts (auto) 5.9, Absolute Lymphs (auto) 1.05, Nucleated RBC % 0, PT 14.8, INR 1.1, APTT 33.4, D-Dimer Quant (PE/DVT) 0.51 H*, Sodium 139, Potassium 4.2, Chloride 102, Carbon Dioxide 29.5, Anion Gap 7, BUN 12, Creatinin (more content not included)... [facility] 06-22-2025 Note HNO ID: [id number] Author: RONNY BHATT MD Service: ? Author Type: Physician Type: Progress Notes Filed: 06/22/2025 18:17 Note Text: URGENT CARE [facility] Theresa Marx is a 59 year old female. Patient presents with: Cough: Chest congestion, nasal congestion, runny nose, productive cough, green thick mucous, Chest pressure and sharpness in mid chest, has been consistent had sharp pain x 20 mins Chest pain: Duration: Pain started about 2 hours ago Location: Lower chest retrosternal Character: Initially was intense stabbing pain which lasted 20 to 30 minutes. It has diminished to a constant pressure now like someone is pushing on her chest. Radiation: No radiation to the arm. Aggravating: Not changed by moving, coughing, or breathing Relieving: Nothing Pain relievers: No recent symptom medication Associated: Viral URI the last 3 days including nasal congestion, copious nasal drainage, and cough. She had sweating last night. Pertinent negatives: Denies headache, sinus pain, fever, shortness of breath, wheezing, dizziness, palpitations The history is provided by the patient. Cough Review of Systems Respiratory: Positive for cough. Objective BP 179/84 Pulse 77 Temp 36.4 ?C (97.5 ?F) Resp 18 Wt 70 kg (154 lb 5.2 oz) SpO2 98% Last 2 Encounter BP Readings: Date: BP: 06/22/2025 179/84 04/29/2025 162/81 Physical Exam Constitutional: General: She is not in acute distress. Appearance: She is ill-appearing (Mildly ill-appearing). Comments: Accompanied by her daughter PHILLY: Right Ear: Tympanic membrane and ear canal normal. Left Ear: Tympanic membrane and ear canal normal. Nose: Congestion present. Right Sinus: No maxillary sinus tenderness or frontal sinus tenderness. Left Sinus: No maxillary sinus tenderness or frontal sinus tenderness. Mouth/Throat: Mouth: Mucous membranes are moist. Pharynx: No oropharyngeal exudate or posterior oropharyngeal erythema. Eyes: Extraocular Movements: Extraocular movements intact. Conjunctiva/sclera: Conjunctivae normal. Pupils: Pupils are equal, round, and reactive to light. Cardiovascular: Rate and Rhythm: Normal rate and regular rhythm. Heart sounds: No murmur heard. Pulmonary: Effort: No respiratory distress. Breath sounds: No wheezing, rhonchi or rales. Chest: Chest wall: No tenderness. Musculoskeletal: Cervical back: Neck supple. Lymphadenopathy: Cervical: No cervical adenopathy. Neurological: General: No focal deficit present. Mental Status: She is alert and oriented to person, place, and time. Gait: Gait normal. {ASSESSMENT/PLAN: 1. Chest pain, unspecified type - ICD9: 786.50, ICD10: R07.9 (primary diagnosis) Chest pain of unclear etiology, patient with significant risk factor(s) of family history of early coronary heart disease, Diabetes Mellitus. - Referred to ED, will be taken by family. 2. URI, acute - ICD9: 465.9, ICD10: J06.9 Ronny Bhatt MD Differential Diagnoses - Acute coronary artery disease - Aortic dissection - Pneumonia - GERD - Pulmonary embolism - Pleuritis is less likely for the following reason(s): No reproducible pain with breathing or movement - Costochondritis is less likely for the following reason(s): No pain with palpation or movement Procedures [facility] 04-29-2025 Note HNO ID: [id number] Author: ZAIRA ROSS APRN.MAINTAINER CENTRAL OFFICE Service: ? Author Type: Nurse Practitioner Type: Progress Notes Filed: 04/29/2025 14:07 Note Text: URGENT CARE LUIS ALBERTOKOJO MARX is a 59 year old female. Patient presents with: Rash: All over body and spreading and itchy, on face, left eye swelling, x 2 days worsening Rash The patient is a 59-year-old female with a history of diabetes mellitus, presenting for evaluation of a pruritic rash. Pruritic Rash: - Onset of pruritic rash, suspected to be due to poison rufino exposure. - Rash is vesicular and diffuse, affecting multiple areas including the ears, face, and perianal region. - Noted swelling of the eyes upon waking this morning. - Denies vision changes or dysphagia. Diabetes Mellitus: - Blood glucose level reportedly 105 mg/dL. - Previously on metformin and a higher dose of pioglitazone; currently managing with 15 mg of pioglitazone. - Monitoring blood glucose levels regularly. Review of Systems Skin: Positive for rash. Eyes: (+) eyelid swelling, (-) vision changes Ears/Nose/Mouth/Throat: (+) ear pruritus Gastrointestinal: (-) dysphagia Skin: (+) diffuse pruritic vesicular rash, (+) perianal pruritus Objective BP 162/81 Pulse 86 Temp 36.9 ?C (98.5 ?F) Resp 22 Wt 72 kg (158 lb 11.7 oz) SpO2 99% Physical Exam General: No acute distress. HEENT: Vesicular rash on face, periorbital edema noted. Skin: Vesicular rash noted on face and neck. No signs of infection. 1. Contact dermatitis due to plants, except food, unspecified contact dermatitis type (L25.5) - Acute, diffuse vesicular rash with pruritus and periorbital edema consistent with plant-induced contact dermatitis. - Start prednisone 9-day taper. - Educated patient on potential for elevated blood glucose with steroid use; advised close monitoring of blood glucose levels during treatment. and Recording using [employer] software for draft documentation of the visit was discussed with the patient/authorized human resources representative; all questions welcomed and answered. Patient/authorized human resources representative agreed to proceed { History and Record Review External record(s) reviewed: no prior records. Disposition The patient was discharged. Procedures [facility] 04-29-2025 History of Presen t illness Narrative URGENT CARE LUIS ALBERTO Pineda Theresa MARX is a 59 year old female. Patient presents with: Rash: All over body and spreading and itchy, on face, left eye swelling, x 2 days worsening Rash The patient is a 59-year-old female with a history of diabetes mellitus, presenting for evaluation of a pruritic rash. Pruritic Rash: - Onset of pruritic rash, suspected to be due to poison rufino exposure. - Rash is vesicular and diffuse, affecting multiple areas including the ears, face, and perianal region. - Noted swelling of the eyes upon waking this morning. - Denies vision changes or dysphagia. Diabetes Mellitus: - Blood glucose level reportedly 105 mg/dL. - Previously on metformin and a higher dose of pioglitazone; currently managing with 15 mg of pioglitazone. - Monitoring blood glucose levels regularly. Review of Systems Skin: Positive for rash. Eyes: (+) eyelid swelling, (-) vision changes Ears/Nose/Mouth/Throat: (+) ear pruritus Gastrointestinal: (-) dysphagia Skin: (+) diffuse pruritic vesicular rash, (+) perianal pruritus Objective BP 162/81 Pulse 86 Temp 36.9 C (98.5 F) Resp 22 Wt 72 kg (158 lb 11.7 oz) SpO2 99% Physical Exam General: No acute distress. HEENT: Vesicular rash on face, periorbital edema noted. Skin: Vesicular rash noted on face and neck. No signs of infection. 1. Contact dermatitis due to plants, except food, unspecified contact dermatitis type (L25.5) - Acute, diffuse vesicular rash with pruritus and periorbital edema consistent with plant-induced contact dermatitis. - Start prednisone 9-day taper. - Educated patient on potential for elevated blood glucose with steroid use; advised close monitoring of blood glucose levels during treatment. and Recording using [employer] software for draft documentation of the visit was discussed with the patient/authorized human resources representative; all questions welcomed and answered. Patient/authorized human resources representative agreed to proceed { History and Record Review External record(s) reviewed: no prior records. Disposition The patient was discharged. Procedures documented in this encounter [facility] Evaluation note Diagnosis Contact dermatitis due to plants, except food, unspecified contact dermatitis type- [facility] NSTEMI (non-ST elevated myocardial infarction) (HCC)- Primary Acute myocardial infarction, subendocardial infarction, episode of care unspecified NSTEMI (non-ST elevated myocardial infarction) (HCC) Acute myocardial infarction, subendocardial infarction, episode of care unspecified S/P coronary artery stent placement Postsurgical percutaneous transluminal coronary angioplasty status NSTEMI (non-ST elevated myocardial infarction) (HCC) Acute myocardial infarction, subendocardial infarction, episode of care unspecified [facility] N[facility] Auth/Cert (Routine) Specialty Diagnoses / Procedures Referred By Chika t Referred To Contact Diagnoses NSTEMI (non-ST elevated myocardial infarction) (HCC) CAD Procedures . Barbara Hendricks MD [address] [place] [id number] Phone: tel: fax: [facility] Cardiac Progressive Care Unit PCU [address] [place] [address] Phone: tel: Referral ID Status Reason Start Date Expiration Date Visits Re quested Visits Authorized [id number] 1 1 [facility] Doctor on Demand Summary Purpose Family History No Family History Records FoundNo Family History Records FoundNo Family History Records Found Advance Directives No Advanced Directives Records FoundDocuments on File Type Date Recorded Patient Document Restorer Expl anation Advance Directives and Livin g Will 06/23/2025 7:35 PM Date Activated Date Inactivated Comments 06/23/2025 6:56 PM 06/26/2025 4:45 PM Additional Source Comments Source Comments (unrecognize d section and content) In the event this informatio n is protected by the Federal Confidentiality of Alcohol and Drug Abuse Patient Records regulations: The Federal rules restrict any use of the information to criminally investigate or prosecute any alcohol or drug abuse patient.[facility] Reason for Visit (unrecogniz ed section and content) Reason Comments Rash All over body and sp reading and itchy, on face, left eye swelling, x 2 days worsening Care Teams (unrecognized sec tion and content) Medical Radiation Tech Relationship Specialty Start Date End Date Rian Durbin III PCP - General 05/02/07 INFORMATION SOURCE (unrecogn ized section and content) DATE CREATED AUTHOR 06/24/2025 [facility] DATE CREATED AUTHOR AUTHOR'S ORGANIZ ATION 06/27/2025 [facility] DATE CREATED AUTHOR AUTHOR'S ORGANIZ ATION 06/30/2025 [facility] Scheduled Active and Recently Administ ered Medications (unrecognized section and content) Medication Order 06/24/2025 06/25/2025 06/26/2025 aspirin EC tablet 81 mg 81 mg, Oral, Daily, First dose on 06/23/25 at 1900, Do not crush, chew, or split. 0918 (Given - Provider: Suzanne Richard, BLANCA) 0848 (Given - Provider: Janet Rey, BLANCA) 0843 (Given - Provider: Angelique Nguyen, BLANCA) buPROPion XL (Wellbutrin XL) 24 hr tablet 150 mg 150 mg, Oral, Daily, First dose (after last modification) on 06/24/25 at 0900, Do not crush, chew, or split., Indications: Major Depressive Disorder 0918 (Given - Provider: Suzanne Richard, BLANCA) 0848 (Given - Provider: Janet Rey, BLANCA) 0844 (Given - Provider: Angelique Nguyen, BLANCA) influenza vaccine tiss-cult subunt (Flucelvax) STANDARD-DOSE injection 0.5 mL 0.5 mL, IntraMUSCular, Once, On 06/23/25 at 1900, For 1 dose Insulin Lispro (Humalog) injection 0-12 Units(Linked Group 1) 0-12 Units, SubCUTAneous, 3 times daily with meals, First dose on 06/24/25 at 0800, Medium Dose Correction Algorithm Glucose: Dose: LESS than 150 No Insulin 150-199 2 Units 200-249 4 Units 250-299 6 Units 300-349 8 Units 350-400 10 Units Above 400 12 Units 0916 (Not Given - Provider: Suzanne Richard RN - Reason: Patient/family refused)1315 (Not Given - Provider: Suzanne Richard RN - Reason: Order parameters not met - Comment: BS [phone] (Not Given - Provider: Suzanne Richard RN - Reason: Order parameters not met - Comment: BS 136) 0847 (Not Given - Provider: Janet Rey RN - Reason: NPO)1200 (Canceled Entry - Provider: Automatic Discharge Provider - Comment: Automatically canceled at discontinue of medication order)1700 (Canceled Entry - Provider: Automatic Discharge Provider - Comment: Automatically canceled at discontinue of medication order) 0955 (Not Given - Provider: Angelique Nguyen RN - Reason: Patient/family refused)1201 (Not Given - Provider: Angelique Nguyen RN - Reason: Patient/family refused) Insulin Lispro (Humalog) injection 0-12 Units(Linked Group 1) 0-12 Units, SubCUTAneous, Nightly, First dose on Wed06/23/25 at 2100, If eating or bolus tube feeding: Medium Dose Correction Algorithm Glucose: Dose: LESS than 150 No Insulin 150-199 2 Units 200-249 4 Units 250-299 6 Units 300-349 8 Units 350-400 10 Units Above 400 12 Units 2027 (Not Given - Provider: Laura Mena RN - Reason: Patient/family refused) 2127 (Not Given - Provider: Philippe Restrepo RN - Reason: Order parameters not met) losartan (Cozaar) tablet 25 mg 25 mg, Oral, Daily, First dose on Wed06/26/25 at 1015 1057 (Given - Provider: Angelique Nguyen RN) metoprolol succinate XL (Toprol-XL) 24 hr tablet 25 mg 25 mg, Oral, Daily, First dose on Wed06/24/25 at 0900, Do not crush or chew. 0917 (Given - Provider: Suzanne Richard RN) 0848 (Given - Provider: Janet Rey RN) 0844 (Given - Provider: Angelique Nguyen RN) pantoprazole (ProtoNix) EC tablet 40 mg 40 mg, Oral, Daily before breakfast, First dose on Wed06/27/25 at 0600, Do not crush, chew, or split. rosuvastatin (Crestor) tablet 40 mg 40 mg, Oral, Daily, First dose on 06/23/25 at 1900 0917 (Given - Provider: Suzanne Richard RN) 0848 (Given - Provider: Janet Rey RN) 0843 (Given - Provider: Angelique Nguyen RN) sodium chloride 0.9% (NS) flush 5-40 mL 5-40 mL, IntraVENous, Every 12 hours, First dose on 06/23/25 at 1900, For Line Patency: Peripheral IV = 5 mL; Midline or Central Line = 10 mL/lumen. If following IV push medication, administer flush at same rate as the IV push. Flush volume is determined by type of infusion therapy being given. For non-viscous solutions use: Peripheral IV = 5 mL Midline or Central Line = 10 mL/lumen For viscous solutions (i.e. blood components, parenteralnutrition, contrast media, or after obtaining blood sample) use: Peripheral IV = 10 mL Midline or Central Line = 20 mL/lumen 0909 (Not Given - Provider: Suzanne Richard RN - Reason: IV Fluids Infusing)1949 (Not Given - Provider: Laura Mena RN - Reason: IV Fluids Infusing) 0625 (Not Given - Provider: Laura Mena RN - Reason: IV Fluids Infusing)222 (Given - Provider: Philippe Restrepo RN) 0551 (Given - Provider: Philippe Restrepo RN) ticagrelor (Brilinta) tablet 180 mg (COMPLETED)(Linked Group 2) 180 mg, Oral, Once, On 06/24/25 at 2100, For 1 dose 2026 (Given - Provider: Laura Mena RN) ticagrelor (Brilinta) tablet 90 mg(Linked Group 2) 90 mg, Oral, 2 times daily, First dose on 06/25/25 at 0900, For 365 days 0848 (Given - Provider: Janet Rey RN)2220 (Given - Provider: Philippe Restrepo RN) 0844 (Given - Provider: Angelique Nguyen RN) venlafaxine XR (Effexor XR) 24 hr capsule 75 mg 75 mg, Oral, Daily, First dose (after last modification) on 06/24/25 at 0900, Capsule may be swallowed whole, or may be opened and its contents sprinkled on applesauce if consumed immediately without chewing. Do not crush or chew., Indications: Major Depressive Disorder 0917 (Given - Provider: Suzanne Richard RN) 0848 (Given - Provider: Janet Rey RN) 0843 (Given - Provider: Angelique Nguyen RN) Continuous Medication Order 06/24/2025 06/25/2025 06/26/2025 heparin 25,000 units in dextrose 5% 250mL infusion (premix) (CANCELED) 5-30 Units/kg/hr 68.4 kg (3.42-20.52 mL/hr, rounded to 3.4-20.5 mL/hr), IntraVENous, Continuous, Starting on 06/23/25 at 1900, LOW Dose Heparin Weight Based Dosing (CAD/STEMI/NSTEMI/AFIB/ECM O) >>>>Initial dose: 9 units/kg/hr<<<< Subsequent dosing: aPTT < 30 Heparin Full re-bolus Increase infusion by 2 units/kg/hr - notify prescriber; aPTT 30-49.9 Heparin Half re-bolus Increase infusion by 1 unit/kg/hr; aPTT 50-70.9 No bolus No change; aPTT 71-95.9 Hold heparin for 60 min Decrease infusion by 1 unit/kg/hr; aPTT > 95.9 Hold heparin for 60 min Decrease infusion by 2 units/kg/hr - notify prescriber; Obtain a baseline aPTT before starting Heparin Therapy. Draw aPTT 6 hours after initiation of the infusion and 6 hours following any rate or dose change - repeating every 6 hours until two consecutive therapeutic aPTT values are achieved. Once therapeutic, monitor aPTT daily with morning labs. Contact provider for further directions if: a) The patient has reached maximum dose and has not achieved the goal of therapy or b) If this medication is held outside of ordered parameters 0402 (Rate/Dose Change - Provider: Laura Mena RN)0705 (Handoff - Provider: Suzanne Richard, RN)1313 (Rate/Dose Change - Provider: Suzanne Richard, RN)1910 (Handoff - Provider: Suzanne Richard, RN)202 (New Bag - Provider: Laura Mena RN) 0642 (New Bag - Provider: Laura Mena RN)0709 (Handoff - Provider: Laura Mena RN)1604 (Due: Order Ending - Provider: Brian Andrade MD - Comment: [Order ends at this time. Document the following action when infusion is complete: Stopped]) PRN Medication Order 06/24/2025 06/25/2025 06/26/2025 acetaminophen (Tylenol) suppository 650 mg(Linked Group 3) 650 mg, Rectal, Every 6 hours PRN, fever, For temp greater than 100.4 F (38 C), Starting on 06/23/25 at 1852, Administer if oral route cannot be used. Maximum dose of acetaminophen is 4000 mg from all sources in 24 hours. acetaminophen (Tylenol) tablet 650 mg(Linked Group 3) 650 mg, Oral, Every 6 hours PRN, mild pain (1-3), fever, For temp greater than 100.4 F (38 C), Starting on 06/23/25 at 1852, Maximum dose of acetaminophen is 4000 mg from all sources in 24 hours. dextrose 5 % infusion 100 mL/hr, IntraVENous, PRN, Blood sugar less than 70mg/dL, Starting on 06/23/25 at 2024, Start infusion following administration of dextrose 50% or glucagon. dextrose 50 % solution 12.5 g 12.5 g, IntraVENous, PRN, low blood sugar, Blood glucose less than 70 mg/dL and patient NOT ALERT or NPO., Starting on 06/23/25 at 2024, If patient does not respond within 5 minutes, repeat dose x1. Start D5W at 100 mL/hour until ordering provider can be reached. Repeat blood glucose in 15 minutes. If blood glucose is less than 70 mg/dL, repeat treatment and recheck blood glucose in 15 minutes x2. If using Glucostabilizer, dose as instructed per system. fentaNYL (Sublimaze) injection (CANCELED) IntraVENous, As needed, Starting on 06/25/25 at 1355, Intraprocedure 1355 (Given - Provider: Antonia Pacheco RN)1446 (Given - Provider: Antonia Pacheco RN)1458 (Given - Provider: Antonia Pacheco, RN)1511 (Given - Provider: Antonia Pacheco RN) glucagon (human recombinant) injection 1 mg 1 mg, IntraMUSCular, PRN, low blood sugar, Blood glucose less than 70 mg/dL and patient NOT ALERT or NPO and does not have IV access., Starting on 06/23/25 at 2024, After administration, attempt intravenous access and start D5W at 100 mL/hr. Repeat blood glucose in 15 minutes x2 and notify provider. glucose oral gel 15 g 15 g, Oral, As needed, low blood sugar, Starting on 06/23/25 at 2025, If blood glucose less than 50 mg/dL and patient ALERT and NOT NPO, give 2 tubes glucose gel. If blood glucose less than 70 mg/dL and patient ALERT and NOT NPO, give 1 tube glucose gel. Repeat blood glucose in 15 minutes. If blood glucose is less than 70 mg/dL, repeat treatment and recheck blood glucose in 15 minutes x2 and notify provider. heparin injection 2,000 Units (CANCELED) 2,000 Units, IntraVENous, As needed, heparin dosing algorithm, Starting on 06/23/25 at 1855, Half dose re-bolus based on pharmacy algorithm 0403 (Given - Provider: Laura Mena, RN)1313 (Given - Provider: Suzanne Richard, BLANCA)2020 (Given - Provider: Laura Mena RN) heparin injection (CANCELED) IntraVENous, As needed, Starting on Wed06/25/25 at 1354, Intraprocedure 1354 (Given - Provider: Antonia Pacheco, BLANCA) iopamidol (Isovue-300) 61 % injection (CANCELED) As needed, Starting on Wed06/25/25 at 1444, Intraprocedure 1444 (Given - Provider: Ronny Chase MD) lidocaine (Xylocaine) 1 % injection (CANCELED) As needed, Starting on Wed06/25/25 at 1350, Intraprocedure 1350 (Given - Provider: Brian Andrade MD) midazolam (Versed) injection (CANCELED) IntraVENous, As needed, Starting on Wed06/25/25 at 1348, Intraprocedure 1348 (Given - Provider: Yady Cash, BLANCA) nitroglycerin (Nitrostat) SL tablet 0.4 mg 0.4 mg, SubLINGual, Every 5 min PRN, chest pain, Starting on 06/23/25 at 1857, May administer up to 3 doses per episode. ondansetron (Zofran) injection 4 mg(Linked Group 4) 4 mg, IntraVENous, Every 6 hours PRN, nausea, vomiting, Starting on 06/23/25 at 1852, Administer if oral route cannot be used. ondansetron ODT (Zofran-ODT) disintegrating tablet 4 mg(Linked Group 4) 4 mg, Oral, Every 8 hours PRN, nausea, vomiting, Starting on 06/23/25 at 1852, Patient should allow tablet to dissolve on tongue. Do not remove from blister pack until just before administering. polyethylene glycol (PEG) 3350 (Miralax) packet 17 g 17 g, Oral, Daily PRN, constipation, Starting on 06/23/25 at 1852, 1st line for treatment of constipation - give scheduled if no bowel movement in past 24 hours. protamine injection (CANCELED) As needed, Starting on 06/25/25 at 1446, Intraprocedure 1446 (Given - Provider: Antonia Pacheco RN) sodium chloride 0.9 % infusion 5-250 mL/hr, IntraVENous, PRN, if patient receiving piggyback infusions and maintenance fluids are not ordered OR KVO fluids to protect IV site / prevent frequent line interruptions / long duration, Starting on 06/23/25 at 1852, For piggyback infusion, administer at same rate as piggyback for a total of 25 mL. Enter 25 mL into dose field and piggyback rate into rate field of order. If piggyback is infusing at a rate less than 100 mL/hr, enter 25 mL into dose field and 100 mL/hr into rate field of order. For KVO fluids, enter rate of 20 mL/hr or less into rate field of order. sodium chloride 0.9% (NS) flush 5-40 mL 5-40 mL, IntraVENous, PRN, line care, After every IV line use, Starting on 06/23/25 at 1852, For Line Patency: Peripheral IV = 5 mL; Midline or Central Line = 10 mL/lumen. If following IV push medication, administer flush at same rate as the IV push. Flush volume is determined by type of infusion therapy being given. For non-viscous solutions use: Peripheral IV = 5 mL Midline or Central Line = 10 mL/lumen For viscous solutions (i.e. blood components, parenteralnutrition, contrast media, or after obtaining blood sample) use: Peripheral IV = 10 mL Midline or Central Line = 20 mL/lumen Linked Groups Order Group 1: Insulin Lispro (Humalog) injection 0-12 UnitsJump to med 0-12 Units, SubCUTAneous, 3 times daily with meals, First dose on 06/24/25 at 0800, Medium Dose Correction Algorithm Glucose: Dose: LESS than 150 No Insulin 150-199 2 Units 200-249 4 Units 250-299 6 Units 300-349 8 Units 350-400 10 Units Above 400 12 Units And Insulin Lispro (Humalog) injection 0-12 UnitsJump to med 0-12 Units, SubCUTAneous, Nightly, First dose on 06/23/25 at 2100, If eating or bolus tube feeding: Medium Dose Correction Algorithm Glucose: Dose: LESS than 150 No Insulin 150-199 2 Units 200-249 4 Units 250-299 6 Units 300-349 8 Units 350- 400 10 Units Above 400 12 Units Group 2: ticagrelor (Brilinta) tablet 180 mg (COMPLETED)Jump to med 180 mg, Oral, Once, On 06/24/25 at 2100, For 1 dose Followed by ticagrelor (Brilinta) tablet 90 mgJump to med 90 mg, Oral, 2 times daily, First dose on Wed06/25/25 at 0900, For 365 days Group 3: acetaminophen (Tylenol) tablet 650 mgJump to med 650 mg, Oral, Every 6 hours PRN, mild pain (1-3), fever, For temp greater than 100.4 F (38 C), Starting on 06/23/25 at 1852, Maximum dose of acetaminophen is 4000 mg from all sources in 24 hours. Or acetaminophen (Tylenol) suppository 650 mgJump to med 650 mg, Rectal, Every 6 hours PRN, fever, For temp greater than 100.4 F (38 C), Starting on 06/23/25 at 1852, Administer if oral route cannot be used. Maximum dose of acetaminophen is 4000 mg from all sources in 24 hours. Group 4: ondansetron ODT (Zofran-ODT) disintegrating tablet 4 mgJump to med 4 mg, Oral, Every 8 hours PRN, nausea, vomiting, Starting on 06/23/25 at 1852, Patient should allow tablet to dissolve on tongue. Do not remove from blister pack until just before administering. Or ondansetron (Zofran) injection 4 mgJump to med 4 mg, IntraVENous, Every 6 hours PRN, nausea, vomiting, Starting on 06/23/25 at 1852, Administer if oral route cannot be used. FOR RECORDS PERTAINING TO PATIENTS WHO ARE OR HAVE BEEN ENROLLED IN A CHEMICAL DEPENDENCY/SUBSTANCEABUSE PROGRAM, SOME INFORMATION MAY BE OMITTED. This clinical summary was aggregated from multiple sources. Caution should be exercised in using it in the provision of clinical care. This summary normalizes information from multiple sources, and as a consequence, information in this document may materially change the coding, format and clinical context of patient data. In addition, data may be omitted in some cases. CLINICAL DECISIONS SHOULD BE BASED ON THE PRIMARY CLINICAL RECORDS. [facility]. provides no warranty or guarantee of the accuracy or completeness of information in this document.
[2025-08-14 04:13] VITALS: BP 164/66; PULSE 75; RESP 18; TEMP 36.8; O2SAT 100
== END 2025-08-14 04:17 | disposition home or self-care (01) ==
PROVIDERS: Emergency Provider Emergency Medicine; Visit Provider Emergency Medicine
DX: S42.254A Nondisplaced fracture of greater tuberosity of right humerus, initial encounter for closed fracture (principal); S80.812A Abrasion, left lower leg, initial encounter; W11.XXXA Fall on and from ladder, initial encounter; Z76.0 Encounter for issue of repeat prescription; Z87.891 Personal history of nicotine dependence
CPT/HCPCS: 73030; 99283